=== PATIENT | male | born 1940 | race Caucasian/White ===

== ENCOUNTER 2022-04-13 14:15 | Outpatient (RCR) | payer MEDICARE, SELFPAY | END 2022-08-01 14:39 | disposition home or self-care (01) | LOC: HO.WCC 14:15 | PROVIDERS: PCP Internal Medicine; Visit Provider Surgery | DX: E11.621 Type 2 diabetes mellitus with foot ulcer (principal); L97.521 Non-pressure chronic ulcer of other part of left foot limited to breakdown of skin; L97.412 Non-pressure chronic ulcer of right heel and midfoot with fat layer exposed; I70.234 Atherosclerosis of native arteries of right leg with ulceration of heel and midfoot; I70.245 Atherosclerosis of native arteries of left leg with ulceration of other part of foot; E11.40 Type 2 diabetes mellitus with diabetic neuropathy, unspecified; I25.2 Old myocardial infarction; J44.9 Chronic obstructive pulmonary disease, unspecified; Z87.891 Personal history of nicotine dependence | CPT/HCPCS: 11042; 99212; 99213; 99214; 99215 ==

== ENCOUNTER 2022-07-29 10:29 | Emergency (ER) | payer MEDICARE, SELFPAY ==
[2022-07-29] VITALS (12 sets, daily range): BP systolic 107–176; BP diastolic 53–94; PULSE 72–92; RESP 14–24; TEMP 36.1–36.8; O2SAT 97–100; BMI 19.1
--- NOTE | ~2022-07-29 | XR_ITS ---
EXAMINATION: XR WRIST, RIGHT XR HAND, RIGHT CLINICAL INFORMATION: Right hand and wrist pain. COMPARISON: None available. TECHNIQUE: PA, lateral, and oblique views of the right wrist and PA, lateral, and oblique views of the right hand FINDINGS: Flexion of the digits limits evaluation of the phalanges without overt acute abnormality. There is an acute, mild to moderately displaced fracture of the distal radius involving the metaphysis and extending distally to the radiocarpal joint space. There is approximate 1.5 cm medial displacement of the proximal fragment. Minimally displaced and attenuated fractures of the distal ulnar metaphysis and ulnar styloid are seen as well. The carpal bones are normally aligned. The soft tissues show mild to moderate swelling. Moderate to severe atherosclerosis. XR/XR hand wrist RT IMPRESSION: 1. Acute, mild to moderately displaced distal radial fracture. 2. Minimally displaced distal ulnar and ulnar styloid fractures. 3. Mild to moderate soft tissue swelling.
--- NOTE | ~2022-07-29 | XR_ITS ---
EXAMINATION: XR WRIST, RIGHT CLINICAL INFORMATION: Right wrist status post reduction. COMPARISON: None available. TECHNIQUE: PA, lateral, and oblique views of the right wrist. XR/XR wrist RT 2V FINDINGS/IMPRESSION: An overlying cast obscures osseous detail. Interval improvement in alignment of distal radial and ulnar fractures. Distal radial fracture displacement now measures approximately 0.7 cm (previously 1.5 cm).
--- NOTE | ~2022-07-29 | XR_ITS ---
EXAMINATION: XR FOREARM, RIGHT CLINICAL INFORMATION: Right forearm pain. COMPARISON: None available. TECHNIQUE: AP and lateral views of the right forearm were obtained. FINDINGS: There is an acute, mild to moderately displaced fracture of the distal radius involving the metaphysis and extending distally to the radiocarpal joint space. There is approximate 1.5 cm medial displacement of the proximal fragment. Minimally displaced and attenuated fractures of the distal ulnar metaphysis and ulnar styloid are seen as well. The proximal radius and ulna are intact. The carpal bones are normally aligned. The soft tissues show mild to moderate swelling. Moderate to severe atherosclerosis. XR/XR forearm RT 2V IMPRESSION: 1. Acute, mild to moderately displaced distal radial fracture. 2. Minimally displaced distal ulnar and ulnar styloid fractures. 3. Mild to moderate soft tissue swelling.
--- NOTE | 2022-07-29 10:36 | ED_ITS ---
HPI - General Adult General Chief complaint: Fall Stated complaint: R WRIST INJURY W/ DEFORMITY Time Seen by Provider: 07/29/22 10:41 Source: patient and EMS Mode of arrival: EMS Limitations: no limitations History of Present Illness HPI narrative: This is an 82-year-old male presenting to the emergency department with complaints of right wrist pain status post mechanical fall and fall onto outstretched hand just prior to arrival. Patient reports he went to grab his refrigerator handle, missed the handle, lost balance fell back catching himself on his right wrist. Patient right-hand dominant. Reports 6/10 pain worse with movement and weight-bearing better at rest. Denies numbness and tingling. When he fell he did not hit is head or lose consciousness. Denies any injuries to chest, abdomen and pelvis. Patient denies preceding symptoms to fall. Currently denies chest pain, shortness of breath, headache, vision changes, dizziness, weakness, nausea, vomiting, abdominal pain. not on blood thinners. GCS is 15. Related Data Home Medications Medication Instructions Recorded Confirmed acetaminophen 325 mg tablet 325 mg PO TID 07/29/22 07/29/22 amoxicillin 875 mg-potassium 1 tab PO Q12H 07/29/22 07/29/22 clavulanate 125 mg tablet aspirin 81 mg tablet,delayed 81 mg PO DAILY 07/29/22 07/29/22 release atorvastatin 80 mg tablet 80 mg PO QPM 07/29/22 07/29/22 bisoprolol fumarate 5 mg tablet 5 mg PO DAILY 07/29/22 07/29/22 famotidine 20 mg tablet 20 mg PO BID 07/29/22 07/29/22 fluticasone 500 mcg-salmeterol 50 1 inh inhalation BID 07/29/22 07/29/22 mcg/dose blistr powdr for inhalation (Wixela Inhub) gabapentin 100 mg capsule 100 mg PO TID 07/29/22 07/29/22 insulin aspart U-100 100 unit/mL 1 sliding scale dose subcut TID 07/29/22 07/29/22 (3 mL) subcutaneous pen (Novolog PRN Hypoglycemia FlexPen U-100 Insulin aspart) insulin glargine 100 unit/mL (3 12 unit subcut DAILY 07/29/22 07/29/22 mL) subcutaneous pen (Lantus Solostar U-100 Insulin) lactulose 10 gram/15 mL oral 15 ml PO DAILY PRN constipation 07/29/22 07/29/22 solution multivitamin 1 tab PO DAILY 07/29/22 07/29/22 oxycodone 10 mg tablet 10 mg PO DAILY PRN Pain 07/29/22 07/29/22 sucralfate 1 gram tablet 1 g PO QID 07/29/22 07/29/22 tamsulosin 0.4 mg capsule 0.4 mg PO DAILY 07/29/22 07/29/22 tiotropium bromide 2.5 2 puff inhalation DAILY 07/29/22 07/29/22 mcg/actuation mist for inhalation Allergies Allergy/AdvReac Type Severity Reaction Status Date / Time No Known Allergies Allergy Unverified 11/06/19 18:00 [No Known Allergies*] Review of Systems Review of Systems: Constitutional : No Weight loss, No Fever, No Chills, No Fatigue, No Malaise ENT/Mouth : No sore throat, No Rhinorrhea Eyes: No Eye Pain, No Swelling, No Redness Cardiovascular : No Chest Pain, No SOB, No Dyspnea on Exertion, No Orthopnea, No Edema, No Palpitations Respiratory : No Cough, No Sputum, No Wheezing Gastrointestinal : No Nausea, No Vomiting, No Diarrhea, No Constipation, No a bdominal Pain, No Hematochezia, No Melena Genitourinary : No Dysuria, No Urinary Frequency, No Hematuria, Musculoskeletal : + joint pain, No Myalgias, + Joint Swelling Skin : No Skin Lesions, No rash Neuro : No Weakness, No Numbness, No Dizziness, No Headache Psych : No Anxiety/Panic, No Depression All other systems reviewed and are negative Yes all other systems are reviewed and are negative [facility] Past Medical History Attestation statement: The following information was validated with the patient. Source: old records reviewed and nursing notes reviewed Social History Social History Smoked in Last 30 Days: No Use of substances other than those prescribed or required for medical reasons: No Advance Directives: No Advance Directives Information Provided: Yes Physical Exam ED Vital Signs: Vital Signs - 24 hr 07/30/22 09:08 07/30/22 12:00 07/30/22 14:00 Temperature 98.8 F 98.3 F 98.1 F Pulse Rate 82 79 76 Respiratory Rate 18 18 18 Blood Pressure 148/69 H 132/60 133/64 Pulse Oximetry 97 98 94 Oxygen Delivery Method Room Air Room Air Room Air 07/30/22 19:38 07/31/22 05:10 Temperature 97.8 F 97.1 F Pulse Rate 84 88 Respiratory Rate 15 17 Blood Pressure 160/69 H 138/61 Pulse Oximetry 94 95 Oxygen Delivery Method Room Air Room Air BMI result Body Mass Index 19.1 vss Appearance: Alert.? Oriented X3.? No acute distress.? Head: Normocephalic, atraumatic, no step-offs or deformities Eyes: Pupils equal, round and reactive to light.? Neck: Normal inspection.? Neck supple.? CVS: Normal heart rate and rhythm.? Pulses normal.? Respiratory: No respiratory distress.? Breath sounds normal.? Abdomen: Soft and nontender.? Skin: Skin warm and dry.? Normal skin color.? Normal skin turgor.? Extremities: No lower extremity edema.? No calf ttp. Will weakness + 2+ radial pulses equal and b/l, no wrist drop b/l, cap refil < 2 seconds. Normal hand telephone sterilizer can wiggle all fingers b/l + deformityy to r wrist w/ dorsal angulation and abrasion Neuro: Oriented X 3.? No motor deficit.? No sensory deficit. CN 2-12 intact Course Course Course Narrative: 07/31/2022 0905: Physician observation continues. Patient awaiting PT evaluation. Case management to continue to follow the case. Reevaluation(s) Reevaluation #1: Of the do spray showing acute [id number] displaced distal radial fracture. Minimally displaced distal ulnar an ulnar styloid fracture. [id number] soft tissue swelling also noted. This case was discussed extensively with the orthopedic team, I did make him aware that I was concerned for an open fracture, I gave a dose of Zosyn here, cyst orthopedics recommends outpatient follow-up with p.o. antibiotics, no need for inpatient admission. At this time will proceed with conscious sedation for reduction of right wrist, I do not think patient would tolerate hematoma block as he is in a lot of pain to entire right upper extremity. I did obtain verbal and written consent which was placed in the chart, patient is right-hand dominant and unable to sign so he gave us verbal consent, Nurse Glory Rosales at bedside as a witness. Time: 12:48 Reevaluation #2: Reduction successfully done with propofol 75 mg. Patient tolerated procedure well. Splint place, sugar-tong, patient did sustain a few skin tears during the reduction, iodine, Xeroform applied to the area. Nonadhesive applied. After application of splint neurovascular status intact. Postop imaging pending. Time: 13:29 Reevaluation #3: Shared postop films with Orthopedic SURESH Girard, recommends outpatient follow-up, improvment from intial films. With p.o. antibiotics due to open fracture. Neurovascular status remains unchanged and intact. Patient tolerated procedure well requesting something for pain final will be given. This patient would benefit from physical therapy and case management. At this time patient to be placed in observation to allow more time to be evaluated by physical therapy and case management. Did start him on oral Keflex p.o. q.i.d. and patient to be discharged home with oral antibiotics. Time: 14:14 Additional Reevaluation(s): Physician observation to be continued. Pending disposition, evaluation by case management final plan, patient did require pain medicine earlier today he does have oxycodone scheduled every 6 hours as needed for pain, required Tylenol as well. No other complaints vital signs stable patient eating and drinking well. Nontoxic appearing Medications Administered Generic Name Dose Route Start Last Admin Trade Name Freq PRN Reason Stop Dose Admin Acetaminophen 975 mg 07/30/22 16:19 07/30/22 16:52 Acetaminophen 325 Mg Tablet PO 975 mg Q6H PRN Administration Pain, Severe (Pain Scale 7-10) Amoxicillin/Clavulanate Potassium 875 mg 07/30/22 11:45 07/31/22 08:23 Amoxicillin/Potassium Clav 875 Mg Tablet PO 875 mg BID AMBREEN Administration Aspirin 81 mg 07/31/22 09:00 07/31/22 08:23 Aspirin Enteric Coated 81 Mg Tablet. PO 81 mg DAILY AMBREEN Administration Atorvastatin Calcium 80 mg 07/30/22 21:00 07/30/22 21:07 Atorvastatin Calcium 80 Mg Tablet PO 80 mg BEDTIME AMBREEN Administration Bisoprolol Fumarate 5 mg 07/31/22 09:00 07/31/22 08:23 Bisoprolol Fumarate 5 Mg Tablet PO 5 mg DAILY AMBREEN Administration Cephalexin HCl 500 mg 07/29/22 15:00 07/31/22 08:23 Cephalexin 500 Mg Capsule PO 500 mg Q6H AMBREEN Administration Famotidine 20 mg 07/30/22 21:00 07/31/22 08:23 Famotidine 20 Mg Tablet PO 20 mg BID AMBREEN Administration Gabapentin 100 mg 07/30/22 15:00 07/31/22 08:23 Gabapentin 100 Mg Capsule PO 100 mg TID [facility] Administration Insulin Glargine 12 unit 07/31/22 09:00 07/31/22 08:24 Insulin Glargine,Hum.Rec.Anlog 100 Unit/Ml 10 Ml Vial SUBCUT 12 unit DAILY [facility] Administration Insulin Human Lispro 0 unit 07/30/22 12:00 07/31/22 08:23 Insulin Lispro 100 Unit/Ml 3 Ml Vial SUBCUT 2 unit QIDACHS [facility] Administration Protocol Multivitamins/Vitamin C 1 tab 07/31/22 09:00 07/31/22 08:23 Multivitamin Tablet PO 1 tab DAILY [facility] Administration Oxycodone HCl 5 mg 07/29/22 17:12 07/31/22 08:38 Oxycodone Hcl Immed Release 5 Mg Tablet PO 5 mg Q6H PRN Administration Pain, Moderate(Pain Scale 4-6) Sucralfate 1 gm 07/30/22 13:00 07/31/22 08:23 Sucralfate 1 Gm Tablet PO 1 gm QID [facility] Administration Tamsulosin HCl 0.4 mg 07/31/22 09:00 07/31/22 08:23 Tamsulosin Hcl 0.4 Mg Capsule PO 0.4 mg DAILY [facility] Administration Discontinued Medications Generic Name Dose Route Start Last Admin Trade Name Freq PRN Reason Stop Dose Admin Acetaminophen 975 mg 07/29/22 18:32 07/29/22 18:40 Acetaminophen 325 Mg Tablet PO 07/29/22 18:33 975 mg ONCE ONE Administration Acetaminophen 975 mg 07/30/22 10:16 07/30/22 10:33 Acetaminophen 325 Mg Tablet PO 07/30/22 10:17 975 mg ONCE ONE Administration Fentanyl 50 mcg 07/29/22 11:20 07/29/22 12:03 Fentanyl Citrate/Pf 100 Mcg/2 Ml Vial IVPUSH 07/29/22 11:21 50 mcg ONCE ONE Administration Protocol Fentanyl 50 mcg 07/29/22 14:12 07/29/22 14:44 Fentanyl Citrate/Pf 100 Mcg/2 Ml Vial IVPUSH 07/29/22 14:13 50 mcg ONCE ONE Administration Protocol Ceftriaxone Sodium 1 gm/ 50 mls @ 100 mls/hr 07/29/22 11:53 07/29/22 13:32 Sodium Chloride IV 07/29/22 12:22 Infused ONCE ONE Infusion Lidocaine HCl 5 ml 07/29/22 11:37 07/29/22 12:39 Lidocaine Hcl 2 % Mpf 5 Ml Vial SUBCUT 07/29/22 11:38 Not Given ONCE ONE Oxycodone HCl 5 mg 07/29/22 18:32 07/29/22 18:39 Oxycodone Hcl Immed Release 5 Mg Tablet PO 07/29/22 18:33 5 mg ONCE ONE Administration Propofol 100 mg 07/29/22 12:33 07/29/22 13:15 Propofol 200 Mg/20 Ml Vial IVPUSH 07/29/22 12:34 100 mg ONCE ONE Administration Medical Decision Making Medical Decision Making [facility] Narrative: 1039 82-year-old male presents with right wrist pain status post FOOSH this prior to arrival. No head strike or loss of consciousness. Not anticoagulated. Physical exam significant for No lower extremity edema.? No calf ttp. 5/5 strength to bilateral upper and lower extremities + 2+ radial pulses equal and b/l, no wrist drop b/l, cap refil < 2 seconds. Normal hand telephone sterilizer can wiggle all fingers b/l + deformityy to r wrist w/ dorsal angulation Concerns for open fracture, dislocation a possible ligament and tendon injury. No signs of neurovascular compromise or threatened limb. No head strike or trauma to chest, abdomen or pelvis. Unlikely stroke, posterior stroke, traumatic injury to chest, abdomen or pelvis. Plan imaging, patient was given fentanyl by EMS prior to arrival Differential Diagnosis Differential Diagnoses: The differential diagnosis associated with the presen tation includes Concerns for fracture, dislocation a possible ligament and tendon injury. No signs of neurovascular compromise or threatened limb. No head strike or trauma to chest, abdomen or pelvis. Unlikely stroke, posterior stroke, traumatic injury to chest, abdomen or pelvis. Admission/Observation Consideration of admission/observation: Escalation of care including admission/observation considered Unlikely Lab Data 07/29/22 15:25 07/29/22 15:25 Labs: Lab Results 07/29/22 07/29/22 07/29/22 Range/Units 15:25 15:25 18:48 WBC 11.0 H (4.8-10.8) X10*3/uL RBC 3.70 L (4.60-5.80) X10*6/uL Hgb 10.4 L (14.0-18.0) g/dl Hct 31.5 L (42.0-52.0) % MCV 85.1 (80.0-98.0) fL MCH 28.1 (27.0-33.0) pg MCHC 33.0 (31.0-36.0) g/dl RDW 15.3 (11.0-16.0) % Plt Count 397 (160-400) X10*3/uL MPV 7.7 L (9.4-12.4) fL Immature Gran % (Auto) 0.5 H (0.0-0.4) % Neut % (Auto) 72.4 (45-73) % Lymph % (Auto) 14.2 L (20-40) % [place] % (Auto) 9.3 (2-11) % Eos % (Auto) 2.6 (0-4) % Baso % (Auto) 1.0 (0-2) % Lymph # (Auto) 1.6 (1.2-4.9) X10*3/uL [place] # (Auto) 1.0 (0.1-1.2) X10*3/uL Eos # (Auto) 0.3 (0.0-0.4) X10*3/uL Baso # (Auto) 0.1 (0.0-0.2) X10*3/uL Abs Immat Gran (auto) 0.05 H (0.00-0.03) X10*3/uL Absolute Neuts (auto) 8.0 (2.0-8.3) x10*3/uL Absolute Nucleated RBC 0.000 (0.0-0.012) X10*3/uL Nucleated RBC % (auto) 0.0 (0.0-0.2) /100WBC Sodium 130 L (135-145) mmol/L Potassium 4.4 (3.3-5.1) mmol/L Chloride 93 L (96-108) mmol/L Carbon Dioxide 29 (22-29) mmol/L Anion Gap 12 (12-20) BUN 16 (9-16) mg/dL Creatinine 0.66 (0.5-1.4) mg/dL Estim Creat Clear Calc 65.7 Estimated GFR > 60 POC Glucose 61 (60-115) mg/dL Random Glucose 80 (60-115) mg/dL Calcium 9.3 (8.4-10.2) mg/dL Total Bilirubin 0.3 (0.0-1.0) mg/dL AST 26 (5-37) U/L ALT 21 (0-40) U/L Alkaline Phosphatase 131 H (39-117) U/L Total Protein 5.9 L (6.5-8.0) g/dL Albumin 3.5 (3.5-5.0) g/dL 07/29/22 07/29/22 07/29/22 Range/Units 19:11 19:36 21:30 WBC (4.8-10.8) X10*3/uL RBC (4.60-5.80) X10*6/uL Hgb (14.0-18.0) g/dl Hct (42.0-52.0) % MCV (80.0-98.0) fL MCH (27.0-33.0) pg MCHC (31.0-36.0) g/dl RDW (11.0-16.0) % Plt Count (160-400) X10*3/uL MPV (9.4-12.4) fL Immature Gran % (Auto) (0.0-0.4) % Neut % (Auto) (45-73) % Lymph % (Auto) (20-40) % [place] % (Auto) (2-11) % Eos % (Auto) (0-4) % Baso % (Auto) (0-2) % Lymph # (Auto) (1.2-4.9) X10*3/uL [place] # (Auto) (0.1-1.2) X10*3/uL Eos # (Auto) (0.0-0.4) X10*3/uL Baso # (Auto) (0.0-0.2) X10*3/uL Abs Immat Gran (auto) (0.00-0.03) X10*3/uL Absolute Neuts (auto) (2.0-8.3) x10*3/uL Absolute Nucleated RBC (0.0-0.012) X10*3/uL Nucleated RBC % (auto) (0.0-0.2) /100WBC Sodium (135-145) mmol/L Potassium (3.3-5.1) mmol/L Chloride (96-108) mmol/L Carbon Dioxide (22-29) mmol/L Anion Gap (12-20) BUN (9-16) mg/dL Creatinine (0.5-1.4) mg/dL Estim Creat Clear Calc Estimated GFR POC Glucose 59 L* 87 199 H (60-115) mg/dL Random Glucose (60-115) mg/dL Calcium (8.4-10.2) mg/dL Total Bilirubin (0.0-1.0) mg/dL AST (5-37) U/L ALT (0-40) U/L Alkaline Phosphatase (39-117) U/L Total Protein (6.5-8.0) g/dL Albumin (3.5-5.0) g/dL 07/30/22 07/30/22 07/30/22 Range/Units 07:26 11:40 16:33 WBC (4.8-10.8) X10*3/uL RBC (4.60-5.80) X10*6/uL Hgb (14.0-18.0) g/dl Hct (42.0-52.0) % MCV (80.0-98.0) fL MCH (27.0-33.0) pg MCHC (31.0-36.0) g/dl RDW (11.0-16.0) % Plt Count (160-400) X10*3/uL MPV (9.4-12.4) fL Immature Gran % (Auto) (0.0-0.4) % Neut % (Auto) (45-73) % Lymph % (Auto) (20-40) % [place] % (Auto) (2-11) % Eos % (Auto) (0-4) % Baso % (Auto) (0-2) % Lymph # (Auto) (1.2-4.9) X10*3/uL [place] # (Auto) (0.1-1.2) X10*3/uL Eos # (Auto) (0.0-0.4) X10*3/uL Baso # (Auto) (0.0-0.2) X10*3/uL Abs Immat Gran (auto) (0.00-0.03) X10*3/uL Absolute Neuts (auto) (2.0-8.3) x10*3/uL Absolute Nucleated RBC (0.0-0.012) X10*3/uL Nucleated RBC % (auto) (0.0-0.2) /100WBC Sodium (135-145) mmol/L Potassium (3.3-5.1) mmol/L Chloride (96-108) mmol/L Carbon Dioxide (22-29) mmol/L Anion Gap (12-20) BUN (9-16) mg/dL Creatinine (0.5-1.4) mg/dL Estim Creat Clear Calc Estimated GFR POC Glucose 170 H 194 H 118 H (60-115) mg/dL Random Glucose (60-115) mg/dL Calcium (8.4-10.2) mg/dL Total Bilirubin (0.0-1.0) mg/dL AST (5-37) U/L ALT (0-40) U/L Alkaline Phosphatase (39-117) U/L Total Protein (6.5-8.0) g/dL Albumin (3.5-5.0) g/dL 07/30/22 07/31/22 Range/Units 20:49 07:55 WBC (4.8-10.8) X10*3/uL RBC (4.60-5.80) X10*6/uL Hgb (14.0-18.0) g/dl Hct (42.0-52.0) % MCV (80.0-98.0) fL MCH (27.0-33.0) pg MCHC (31.0-36.0) g/dl RDW (11.0-16.0) % Plt Count (160-400) X10*3/uL MPV (9.4-12.4) fL Immature Gran % (Auto) (0.0-0.4) % Neut % (Auto) (45-73) % Lymph % (Auto) (20-40) % [place] % (Auto) (2-11) % Eos % (Auto) (0-4) % Baso % (Auto) (0-2) % Lymph # (Auto) (1.2-4.9) X10*3/uL [place] # (Auto) (0.1-1.2) X10*3/uL Eos # (Auto) (0.0-0.4) X10*3/uL Baso # (Auto) (0.0-0.2) X10*3/uL Abs Immat Gran (auto) (0.00-0.03) X10*3/uL Absolute Neuts (auto) (2.0-8.3) x10*3/uL Absolute Nucleated RBC (0.0-0.012) X10*3/uL Nucleated RBC % (auto) (0.0-0.2) /100WBC Sodium (135-145) mmol/L Potassium (3.3-5.1) mmol/L Chloride (96-108) mmol/L Carbon Dioxide (22-29) mmol/L Anion Gap (12-20) BUN (9-16) mg/dL Creatinine (0.5-1.4) mg/dL Estim Creat Clear Calc Estimated GFR POC Glucose 171 H 164 H (60-115) mg/dL Random Glucose (60-115) mg/dL Calcium (8.4-10.2) mg/dL Total Bilirubin (0.0-1.0) mg/dL AST (5-37) U/L ALT (0-40) U/L Alkaline Phosphatase (39-117) U/L Total Protein (6.5-8.0) g/dL Albumin (3.5-5.0) g/dL Independent Interpretation I performed an independent interpretation of an: Plain X-Ray Radiology Impression Discussion of test interpretation with radiology: I have reviewed the radiologist's reading. Core Measures AMI core measures followed: Yes Measure exclusions: not indicated Critical Care Time Critical Care Time Critical Care Time: Yes Total Critical Care Time: 35 Attestation: I attest to this time spent taking care of the patient, obtaining history, physical, reviewing labs, imaging, speaking to my attending, speaking to specialist. Discharge Plan Discharge Clinical Impression: Fall, Distal radial fracture, Ulnar fracture, Physical deconditioning Patient Disposition: Still a Patient Additional Instructions: Please discharged on oral antibiotics. Take your medications as prescribed. If you were prescribed antibiotics today, it is important that you take your medication to their entirety, do not skip any doses, do not finish them early. Follow-up with your primary care provider this week. Return to the emergency department with new or worsening symptoms. Such as fevers, chills, chest pain, shortness of breath, nausea, vomiting, dizziness, headache, vision changes, lethargy In case of emergency call 911 Prescriptions: No Action atorvastatin 80 mg tablet 80 mg PO QPM sucralfate 1 gram tablet 1 g PO QID bisoprolol fumarate 5 mg tablet 5 mg PO DAILY famotidine 20 mg tablet 20 mg PO BID tamsulosin 0.4 mg capsule 0.4 mg PO DAILY fluticasone propion-salmeterol [Wixela Inhub] 500-50 mcg/dose Blister With Device 1 inh INHALATION BID gabapentin 100 mg capsule 100 mg PO TID amoxicillin-pot clavulanate 875-125 mg tablet 1 tab PO Q12H lactulose 10 gram/15 mL solution 15 ml PO DAILY PRN (Reason: constipation) oxycodone 10 mg tablet 10 mg PO DAILY PRN (Reason: Pain) multivitamin Tablet 1 tab PO DAILY acetaminophen 325 mg Tablet 325 mg PO TID aspirin 81 mg Tablet,Delayed Release (Dr/Ec) 81 mg PO DAILY insulin aspart U-100 [Novolog FlexPen U-100 Insulin] 100 unit/mL (3 mL) Insulin Pen 1 sliding scale dose SUBCUT TID PRN (Reason: Hypoglycemia) insulin glargine [Lantus Solostar U-100 Insulin] 100 unit/mL (3 mL) Insulin Pen 12 unit SUBCUT DAILY tiotropium bromide 2.5 mcg/actuation Mist 2 puff INHALATION DAILY [place]: [facility] [place] [facility] [place]Provider Group] - 2 days Physician,Unknown J [Primary Care Provider] - 2 days
--- OUTSIDE RECORDS SUMMARY | 2022-07-29 10:52 | XMS_ITS | Continuity of Care Document ---
Author Name Unknown Organization [facility] ter Address [address] [place] [id number] Care Team Providers Care Content Engineer Name Role Phone Rina WEBBER, Juanjose Em Primary Care Physician Encounter [facility] Date(s): 05/15/22 - 05/23/[address] [address] Discharge Disposition: A-D/C Home Allergies, Adverse Reactions, Alerts No Known Allergies Immunizations Given and Recorded Vaccine Date Status Refusal Reason SARS-CoV-2 (COVID-19) mRNA-1273 vaccine 12/20/20 R ecorded SARS-CoV-2 (COVID-19) mRNA-1273 vaccine 05/11/20 R ecorded SARS-CoV-2 (COVID-19) mRNA-1273 vaccine 04/13/20 R ecorded pneumococcal 13-valent vaccine 05/25/15 Recorded Zoster Vaccine Live 07/16/12 Recorded influenza virus vaccine, inactivated 03/12/12 Zach rded Pneumococcal Vaccine (oldterm) 02/19/10 Recorded tetanus/diphtheria/pertussis, acel(Tdap) 10/28/09 Recorded Medications albuterol 90 mcg/inh inhalation powder 2 puffs, Inhalation, Every 4 hours, PRN as needed, # 1 each, 0 Refills, Maintenance, 09/17/15 13:00:20, Powder Start Date: 09/17/15 Status: Ordered aspirin 81 mg oral tablet 1 tablet = 81 mg, By Mouth, Daily, # 30 tablet, 0 Refills, Maintenance, 09/17/15 13:02:15, Tablet Start Date: 09/17/15 Status: Ordered atorvastatin 80 mg oral tablet 1 tablet = 80 mg, By Mouth, Daily at supper, # 90 tablet, 3 Refills, Maintenance, Route to PharmacyElectronically, [id number], [facility]/pharmacy #[id number] Start Date: 06/25/18 Stop Date: 06/20/19 Status: Ordered bisoprolol 5 mg oral tablet 1 tablet = 5 mg, By Mouth, Daily, # 30 tablet, 5 Refills, Maintenance, 12/14/15 15:49:33, Tablet Start Date: 12/14/15 Status: Ordered Centrum Silver Men's 1 tablet, By Mouth, Daily, 0 Refills, Maintenance, 09/17/15 13:03:26 Start Date: 09/17/15 Status: Ordered famotidine 20 mg oral tablet 20 mg, 1, tablet, By Mouth, 2 times a day, # 60 tablet, Refills 0, Maintenance, 09/17/15 12:58:56 Start Date: 09/17/15 Status: Ordered Flomax 0.4 mg oral capsule 0.4 mg, 1, capsule, By Mouth, Daily, Refills 0, Maintenance, 05/23/22 14:13:00 EDT, Partial fill upon patient request if the prescription is for a schedule II opioid drug. Start Date: 05/23/22 Status: Ordered lactulose 10 gm/15 ml oral syrup 15 mL = 10 Gm, By Mouth, Daily, PRN as needed for constipation, # 450 mL, 3 Refills, Maintenance, 11/29/15 9:46:32, Syrup, 15 mL By Mouth Daily,x30 days,PRN:as needed for constipation Start Date: 11/29/15 Stop Date: 03/28/16 Status: Ordered Lantus Solostar Pen 100 units/mL subcutaneous solution = 14 units, Subcutaneous Infusion, 12 units, 0 Refills, Maintenance, 09/17/15 13:01:02 EDT Start Date: 09/17/15 Status: Ordered levalbuterol 1.25 mg/0.5 mL inhalation solution 0.5 mL = 1.25 mg, Neb, 3 times a day, PRN for wheezing, # 30 each, 0 Refills, Maintenance, 10/25/1615:38:35, Solution Start Date: 10/25/15 Status: Ordered MiraLax = 17 Gm, By Mouth, Daily, 0 Refills, Maintenance, 05/12/22 9:22:00 EDT, Partial fill upon patient request if the prescription is for a schedule II opioid drug. Start Date: 05/12/22 Status: Ordered NovoLOG FlexPen 100 units/mL subcutaneous solution Subcutaneous Infusion, 3 times a day before meals, 0 Refills, Maintenance, 09/17/15 13:00:45 Start Date: 09/17/15 Status: Ordered oxyCODONE 10 mg oral tablet 2 tablet = 20 mg, By Mouth, Every 6 hours, PRN as needed for pain, 0 Refills, Maintenance, 09/16/1612:01:38, Tablet Start Date: 09/17/15 Status: Ordered Spiriva HandiHaler 18 mcg Inhalation Capsule 1 capsule = 18 mcg, Inhalation, Daily, 0 Refills, Maintenance, 09/17/15 12:59:21, Capsule Start Date: 09/17/15 Status: Ordered Symbicort 160mcg/4.5mcg Inhaler 2, puffs, Inhalation, 2 times a day, # 10.2 Gm, Refills 0, Maintenance, 09/17/15 12:59:43, Aerosol Start Date: 09/17/15 Status: Ordered Tylenol 325 mg oral tablet 650 mg, 2, tablet, By Mouth, Every 6 hours, Refills 0, Maintenance, 05/23/22 14:13:00 EDT, Partial fill upon patient request if the prescription is for a schedule II opioid drug. Start Date: 05/23/22 Status: Ordered Tylenol 325 mg oral tablet 650 mg, Tablet, By Mouth, 05/23/22 15:00:00 EDT Start Date: 05/23/22 Stop Date: 05/23/22 Status: Completed Problem List Condition Confirmation Course Effective Dates Status H ealth Status Informant CAD in [place] artery Confirmed Active Diabetes Confirmed Active Essential hypertension Confirmed Active Hyperlipidemia Confirmed Active Chronic pain of left knee Confirmed Active COPD, moderate Confirmed Active Procedures Procedure Date Related Diagnosis Body Site Status Debridement Procedure, Bypas s Femoral Popliteal with Graft, Lower, Left 05/15/22 Completed Results Orders for Microbiology Reports Name Date Blood Culture 05/19/22 Blood Culture #2 05/19/22 Microbiology Reports TEST:Blood Culture STATUS:Unauthenticated BODY SITE: SOURCE:Blood COLLECTED DATE/TIME:05/19/22 5:11 AM Blood Culture SPECIMEN DESCRIPTION : BLOOD LH SPECIAL REQUESTS : NONE CULTURE : NO GROWTH 4 DAYS REPORT STATUS : PRELIMINARY REPORT TEST:Blood Culture, Second Order STATUS:Unauthenticated BODY SITE: SOURCE:Blood COLLECTED DATE/TIME:05/19/22 5:11 AM Blood Culture, Second Order SPECIMEN DESCRIPTION : BLOOD RA SPECIAL REQUESTS : NONE CULTURE : NO GROWTH 4 DAYS REPORT STATUS : PRELIMINARY REPORT Radiology Reports * Exam Date Time Procedure Performing Provider Status 05/21/22 8:04 AM Abdomen AP Ze Génesis; Auth (Ve rified) Notes: (Abdomen AP) Reason For Exam: Distention RESULT: XR Abdomen AP XR Abdomen AP INDICATION/CLINICAL QUESTION: Distention; COMPARISON: 10/15/2013. FINDINGS: Frontal view of the abdomen and pelvis, 2 radiographs labeled supine, 739 and 7:40 AM. Colon appears moderately stool-filled. Otherwise largely nonspecific bowel gas pattern. Included lung bases are clear. There is moderate to advanced degenerative osseous changes and atherosclerotic arterial changes. Surgical pelvic calcifications appear unchanged likely phleboliths. IMPRESSION: Patient appears constipated. WSN: [id number] Ordering Physician: Lyndsey Mei Dictated By: Jose Mercer MD Dictated Date/Time: 05/21/22 8:57 am Reviewed By: Jose Mercer MD Signed By: Jose Mercer MD Signed Date/Time: 05/21/22 8:57 am Transcribed By: GUY Transcribed Date/Time: 05/21/22 8:56 am * Exam Date Time Procedure Performing Provider Status 05/19/22 6:08 AM Chest Portable Alyse Schaffer; Auth (Verified) Notes: (Chest Portable) Reason For Exam: Shortness of Breath RESULT: Chest Portable Chest Portable Reason: Shortness of Breath; Clinical Question(s): Pulmonary Edema COMPARISON: 10/25/2015. FINDINGS: Single AP upright chest x-ray 5:37 AM. LINES AND TUBES: None. LUNGS AND PLEURA: Questionable trace left apical pneumothorax. Otherwise lungs are hyperexpanded and clear. HEART, MEDIASTINUM AND LASHELL: Heart is normal in size. Normal mediastinal and hilar contour. BONES AND SOFT TISSUES: No acute abnormality. Fairly extensive atherosclerotic carotid arterial calcifications. IMPRESSION: Questionable tiny left apical pneumothorax may be artifact. Clinical correlation recommended. COPD changes, otherwise no evidence of an acute process. A critical result message ([place]) has been communicated via the [facility] on 05/19/2022 8:03 AM, Message ID [id number]. WSN: [id number] Ordering Physician: Logan Weeks Dictated By: Jose Mercer MD Dictated Date/Time: 05/19/22 8:03 am Reviewed By: Jose Mercer MD Signed By: Jose Mercer MD Signed Date/Time: 05/19/22 8:03 am Transcribed By: GUY Transcribed Date/Time: 05/19/22 8:00 am Vital Signs Most recent to oldest [Reference Range]: 1 2 3 Height 165 cm (05/23/22 7:53 AM) 165 cm (05/23/22 5:22 AM) 165 cm (05/22/22 9:44 PM) Weight 62.4 kg (05/23/22 4:10 AM) 63.2 kg (05/22/22 4:00 AM) 62.1 kg (05/21/22 5:51 AM) Oxygen Saturation [94-100 %] 97 % (05/23/22 3:00 PM) 98 % (05/23/22 11:00 AM) 98 % (05/23/22 7:53 AM) Pulse Rate [55-90 bpm] 99 bpm *H* (05/23/22 3:00 PM) 90 bpm (05/23/22 11:00 AM) 86 bpm (05/23/22 7:53 AM) Body Mass Index [18.5-24.99 kg/m2] 20.2 kg/m2 (05/15/22 9:08 AM) 20.2 kg/m2 (05/12/22 9:30 AM) Blood Pressure [90-138/55-84 mm Hg] 108/49mm Hg (05/23/22 3:00 PM) 109/56mm Hg (05/23/22 11:00 AM) 112/71mm Hg (05/23/22 7:53 AM) Respiratory Rate [16-30 br/min] 18 br/min (05/23/22 3:45 PM) 20 br/min (05/23/22 3:00 PM) 20 br/min (05/23/22 11:00 AM) Temperature [96.8-100.4 DegF] 98.8 DegF (05/23/22 3:00 PM) 98.9 DegF (05/23/22 11:00 AM) 98.9 DegF (05/23/22 7:53 AM) Liters per Minute 0 L/min (05/18/22 7:38 PM) 4 L/min (05/15/22 9:30 PM) 6 L/min (05/15/22 9:15 PM) Mode of Delivery (Oxygen) Room air (05/23/22 11:00 AM) Room air (05/23/22 7:53 AM) Room air (05/23/22 5:22 AM) Blood pressure sites Arm, right (05/23/22 3:00 PM) Arm, right (05/23/22 11:00 AM) Arm, right (05/23/22 5:22 AM) Temperature Route Oral (05/23/22 3:00 PM) Oral (05/23/22 11:00 AM) Oral (05/23/22 7:53 AM) Dry Weight 55 kg (05/15/22 9:08 AM) 55 kg (05/12/22 9:30 AM) Weight Obtained Via Bed scale (05/23/22 4:10 AM) Bed scale (05/20/22 8:00 AM) Bed scale (05/19/22 3:09 AM) Dry Weight Obtained Via Standing scale (05/15/22 9:08 AM) Patient/family stated (05/12/22 9:30 AM) Social History Social History Type Response Smoking Status Former smoker; Tobac co user in household: No; Other: pt states he quit 15 yrs ago; entered on: 05/09/16 Sex History and physical note * Event Display: History and Physical Hospital Authored Date: Admission evaluation note * Vishnu DAYTIME BABYSITTER Thom: MODIFY [place] DAYTIME BABYSITTER Thom: MODIFY, MODIFY Minkin DAYTIME BABYSITTER Thom: MODIFY, MODIFY Minkin DAYTIME BABYSITTER, Thom: MODIFY, MODIFY Minkin DAYTIME BABYSITTER, Thom: MODIFY, SIGN Minkin DAYTIME BABYSITTER, Thom: SIGN, VERIFY Vishnu DAYTIME BABYSITTER Thom: VERIFY, MODIFY Vishnu DAYTIME BABYSITTER Thom: MODIFY, PERFORM Vishnu DAYTIME BABYSITTER, Thmo: PERFORM, MODIFY Event Display: Admission Note Authored Date: [id number] Patient: RAD ACOSTA Age: 81 years Sex: Male : 1940 Associated Diagnoses: None Author: Thom Mares NP History of Present Illness Rad Acosta is a 81yo male w/ PMH significant for CAD, COPD, chronic left knee pain, diabetes, HTN, and HLD who presented for a planned vascular surgery w/ Dr. Woo. He reportedly has had b/l lower extremity pain for approx 2 years with various poorly healing skin ulcerations to his bilateral feet/heels which prompted the vascular surgery workup. He had presented for an initially planned Left fem to pop bypass which resulted in a Left fem to AT bypass utilizing his left greater saphenous vein for graft also with debridement of his Left 1st toe w/ removal of left 4th toenail. During the case he remained hypotensive despite 2units of PRBC and 5.5L of IVF resuscitation and an EBL of approx 650. He was admitted to the STICU post-op still on Levophed for BP support but extubated. He was admitted for hemodynamic support. ROS General: Denies fevers or chills HEENT: Denies acute vision or hearing changes Neuro: Denies headache or confusion CV: Denies chest pain, palpitations or SOB Pulm: Denies SOB or cough GI: Denies abdominal pain, no N/V/C/D : Denies dysuria Extremities: Endorses left knee pain and left ankle pain, as well as baseline right foot pain, otherwise denies extremity pain/discomfort. ICU Notes: LOS: 1 ICU day #: 1 Postop Day #: 05/15/22 - Left fem-AT bypass utilizing Left GSV graft, also with debridement of left 1st toe and removal of toenail on L4, all with Dr. Woo. Central line site appearance: N/A Evidence of line infection or BSI?: no Central Line day #: N/A Arterial Line day #: 05/15/22 - Right radial a-line, placed under sterile conditions in OR by anesthesia All lines/tubes necessary?: yes Need for continuing restraints assessed?: N/A DVT prophylaxis: heparin 5000 tid Stress ulcer prophylaxis: continue home famotidine, otherwise not indicated. Glucose Protocol (80-150): presented to STICU on insulin infusion, continued for now. HOB elevated = or > 30 deg: yes Daily sedation wakeup: N/A Vent weaning assessed: N/A Resuscitation Status: full resuscitation Past Medical History Problem list All Problems CAD in [place] artery / SNOMED CT 70898739 / Confirmed Diabetes / SNOMED CT 103834431 / Confirmed Essential hypertension / SNOMED CT 07068867 / Confirmed Hyperlipidemia / SNOMED CT 73382776 / Confirmed Chronic pain of left knee / SNOMED CT 50418108 / Confirmed COPD, moderate / SNOMED CT 088457194 / Confirmed Current medications (Selected) Inpatient Medications Ordered Bisacodyl Supp: 10 mg, Suppository, Rectally, 2 times a day, PRN for Constipation, Routine, 05/15/22 21:43:00 EDT Colace Liquid: 100 mg, Liquid, By Mouth, 2 times a day, PRN for Constipation, Routine, 05/15/22 21:43:00 EDT Heparin Inj: 5,000 units, Injection, Subcutaneous Injection, 3 times a day, (DVT Prophylaxis), Routine, 05/16/22 6:00:00 EDT Insulin R 100 units in 100 mL Premix 100 units [2 units/hr] + NaCL 0.9% Premixed IV 100 mL: 100 mL,Infusion, IV Infusion, 100 mL, 2 mL/hr, Infuse over 50 hr, Refer to Adult ICU Insulin Guidelines., Unless duration specified Continue until D/C'd, Routine, 05/15/22 21:43:00 EDT, 55 kg LR 1,000 mL: 1,000 mL, Infusion, IV Infusion, 1,000 mL, 100 mL/hr, Infuse over 10 hr, Continue until D/C'd Unless duration specified, Routine, 05/15/22 21:44:00 EDT, 1.6, m2 Levophed 4 mg / NaCL 0.9% 250 mL 4 m mL, Initial Dose 0.1 mcg/kg/min, Infusion, IV Infusion, Titrate for Other:, goal map > 65. Suggested infusion range 0.05 - 1.6 mcg/kg/min, Routine, 05/15/22 21:44:00 EDT, Titrate, mL 250 Milk of Magnesia Liquid: 30 mL, Suspension, By Mouth, 2 times a day, PRN for Constipation, Routine,05/15/22 21:43:00 EDT NaCL 0.9% 500 mL: 500 mL, Infusion, Intra-arterial, 500 mL, 3 mL/hr, Infuse over 166.7 hr, RADIAL A-LINE, Continue until D/C'd Unless duration specified, Routine, 05/15/22 21:43:00 EDT, 1.6, m2 NaCL 0.9% Flush: 3 mL, Injection, IV Push, Every 8 hours, PRN for Other, For Maintaining IV Patencyand/or Flush between IV medications, Routine, 05/15/22 21:43:00 EDT Tylenol 325 mg oral tablet: 650 mg, Tablet, By Mouth, Every 6 hours, Routine, 05/15/22 23:00:00 EDT atorvastatin 80 mg oral tablet: 80 mg, Tablet, By Mouth, Daily at supper, Routine, 05/16/22 17:00:00 EDT famotidine 20 mg oral tablet: 20 mg, Tablet, By Mouth, 2 times a day, Routine, 05/15/22 22:34:00 EDT oxyCODONE 5 mg oral tablet: 5 mg, Tablet, By Mouth, Every 6 hours, PRN for Pain , Severe, Routine, 05/15/22 22:35:00 EDT Prescriptions Prescribed atorvastatin 80 mg oral tablet: 1 tablet = 80 mg, By Mouth, Daily at supper, # 90 tablet, 3 Refills, Maintenance, Route to Pharmacy Electronically, [id number], [facility]/pharmacy #[id number] bisoprolol 5 mg oral tablet: 1 tablet = 5 mg, By Mouth, Daily, # 30 tablet, 5 Refills, Maintenance,12/14/15 15:49:33, Tablet lactulose 10 gm/15 ml oral syrup: 15 mL = 10 Gm, By Mouth, Daily, PRN as needed for constipation, #450 mL, 3 Refills, Maintenance, 11/29/15 9:46:32, Syrup, 15 mL By Mouth Daily,x30 days,PRN:as needed for constipation Documented Medications Documented Centrum Silver Men's: 1 tablet, By Mouth, Daily, 0 Refills, Maintenance, 09/17/15 13:03:26 Lantus Solostar Pen 100 units/mL subcutaneous solution: Subcutaneous Infusion, 12 units, 0 Refills,Maintenance, 09/17/15 13:01:02 MiraLax: = 17 Gm, By Mouth, Daily, 0 Refills, Maintenance, 05/12/22 9:22:00 EDT, Partial fill upon patient request if the prescription is for a schedule II opioid drug. NovoLOG FlexPen 100 units/mL subcutaneous solution: Subcutaneous Infusion, 3 times a day before meals, 0 Refills, Maintenance, 09/17/15 13:00:45 Spiriva HandiHaler 18 mcg Inhalation Capsule: 1 capsule = 18 mcg, Inhalation, Daily, 0 Refills, Maintenance, 09/17/15 12:59:21, Capsule Symbicort 160mcg/4.5mcg Inhaler: 2, puffs, Inhalation, 2 times a day, # 10.2 Gm, Refills 0, Maintenance, 09/17/15 12:59:43, Aerosol albuterol 90 mcg/inh inhalation powder: 2 puffs, Inhalation, Every 4 hours, PRN as needed, # 1 each, 0 Refills, Maintenance, 09/17/15 13:00:20, Powder aspirin 81 mg oral tablet: 1 tablet = 81 mg, By Mouth, Daily, # 30 tablet, 0 Refills, Maintenance, 09/17/15 13:02:15, Tablet famotidine 20 mg oral tablet: 20 mg, 1, tablet, By Mouth, 2 times a day, # 60 tablet, Refills 0, Maintenance, 09/17/15 12:58:56 levalbuterol 1.25 mg/0.5 mL inhalation solution: 0.5 mL = 1.25 mg, Neb, 3 times a day, PRN for wheezing, # 30 each, 0 Refills, Maintenance, 10/25/15 16:38:35, Solution oxyCODONE 10 mg oral tablet: 2 tablet = 20 mg, By Mouth, Every 6 hours, PRN as needed for pain, 0 Refills, Maintenance, 09/17/15 13:01:38, Tablet Social History Social History Alcohol Details: Use: Past. Substance Abuse Details: Use: Never. Tobacco Details: Former smoker, Tobacco user in household: No. Other: pt states he quit 15 yrs ago. . above as noted per chart review. Physical Examination Significant Findings on Physical Exam General: Pt appears resting comfortably in bed in no acute distress Neuro: [On no sedating drips] Pt is alert, oriented, moves x4 extremities spontaneously and to command Cardiac: S1/S2 auscultated, RRR. Currently NSR 80-90 via telemetry w/ BP 90-100/40-50 via right radial a-line. Periph pulses faintly palpable in b/l upper extremities, signals to b/l lower extremities; biphasic doplerable signal to Left AT (PT/DP covered by surgical dressings), Right AT/DP biphasic dopplerable signal. No periph edema x4 extremities Pulm: Lungs CTA throughout, current SpO2 94-98% on 2L NC. GI: Abd soft, non-tender, non-distended, Has a moderate sized abdominal hernia noted just left of midline, reducable, without pain to palpation, at baseline per patient. : killian in place w/ yellow urine in bag. MSK: moves x4 extremities w/o gross deformity Integ: Has srgical incision noted to Left leg from mid-thigh extending to superior portion of anklew/ sero-sang stained gauze dressing under tegaderm. Additionally has a c/d/i dressing to left foot/wrapped around ankle from L1/L4 debridement sites. Also noted to have ulcerations that appear chronic to Right heel on plantar aspect, appears as pictured in proposal development manager. Additionally has a blanchable redness to Left buttock/sacrum. Skin otherwise grosly w/d/i. Results Review Today's results 05/15/2022 23:22 EDT Glucose, POC 154 mg/dL H 05/15/2022 22:48 EDT Glucose, POC 172 mg/dL H 05/15/2022 22:00 EDT Normothermic Measures Brendan hatfield Heart Rate Monitored 74 bpm Heart Rate Monitored 74 bpm Respiratory Rate 13 br/min L Respiratory Rate 14 br/min L Systolic Blood Pressure 92 mm Hg Diastolic Blood Pressure 61 mm Hg Systolic Arterial Blood Pressure 107 mm Hg Systolic Arterial Blood Pressure 107 mm Hg Diastolic Arterial Blood Pressure 44 mm Hg L Diastolic Arterial Blood Pressure 44 mm Hg L Blood pressure sites Arm, right Mean Arterial Pressure Monitored 63 mm Hg Mean Arterial Pressure Monitored 63 mm Hg Pulse Pressure 31 mm Hg Oxygen Saturation 100 % Oxygen Saturation 100 % Mode of Delivery (Oxygen) Room air Mode of Delivery (Oxygen) Room air 05/15/2022 21:47 EDT Glucose, POC 212 mg/dL H 05/15/2022 20:20 EDT WBC 24.1 k/mm3 H RBC 3.59 m/mm3 L Hgb 11.7 Gm/dL L Hct 33.2 % L MCV 92.5 femtoliters MCH 32.6 pg MCHC 35.2 g/dL Platelet Count 224 k/mm3 RDW-SD 50.2 femtoliters H MPV 8.6 femtoliters L Nucleated RBC (Automated) 0.0 #/100 WBC'S Abs. NRBC 0.0 k/mm3 Abs. Neut 21.2 k/mm3 H Abs. Lymph 1.2 k/mm3 Abs. Mcdonald 1.2 k/mm3 Abs. Eo 0.1 k/mm3 Abs. Baso 0.1 k/mm3 Neut % 88.2 % H Lymph % 5.1 % L Mcdonald % 5.2 % Eos % 0.5 % Baso % 0.2 % RBC Morphology SLIGHT Platelet Comment FEW Imm Gran 0.8 % Abs. Imm Gran 0.2 k/mm3 INR 1.0 Protime (PT) 10.6 seconds APTT 22.8 seconds L Sodium 135 mmol/L Potassium 4.2 mmol/L Chloride 103 mmol/L Bicarbonate Level 20 mmol/L L Anion Gap 12 Glucose Level 177 mg/dL H BUN 15 mg/dL Creatinine-Blood 0.7 mg/dL Estimated GFR Creatinine 93 ML/MIN/1.73 M2 Calcium, Ionized pH Corrected 1.13 mmol/L Phosphorus 4.6 mg/dL H Magnesium 1.8 mg/dL Lactate 3.9 mmol/L H 05/15/2022 20:16 EDT pH (POC) POC Cartridge 7.33 L pCO2 (POC) POC Cartridge 44.0 mm Hg pO2 (POC) POC Cartridge 315 mm Hg H Estimated Bicarbonate (POC) POC Cart 23.0 mmol/L % O2 Sat Arterial (POC) POC Cartridge 100 % Base Excess (POC) POC Cartridge NEGATIVE 3 Specimen Type - Blood Gas ARTERIAL Hemoglobin (POC) POC Cartridge 11.6 Gm/dL L Hematocrit (POC) POC Cartridge 34 % L Sodium (POC) POC Cartridge 132 mmol/L L Potassium (POC) POC Cartridge 4.7 mmol/L Glucose (POC) POC Cartridge 248 H Ionized Calcium (POC) POC Cartridge 1.14 mmol/L 05/15/2022 19:30 EDT RBC Unit ID [id number] (Modified) RBC Available IS (Modified) 05/15/2022 19:30 EDT pH (POC) POC Cartridge 7.37 pCO2 (POC) POC Cartridge 39.6 mm Hg pO2 (POC) POC Cartridge 220 mm Hg H Estimated Bicarbonate (POC) POC Cart 22.7 mmol/L % O2 Sat Arterial (POC) POC Cartridge 100 % Base Excess (POC) POC Cartridge NEGATIVE 3 Specimen Type - Blood Gas ARTERIAL Hemoglobin (POC) POC Cartridge 9.2 Gm/dL L Hematocrit (POC) POC Cartridge 27 % L Sodium (POC) POC Cartridge 134 mmol/L Potassium (POC) POC Cartridge 4.6 mmol/L Glucose (POC) POC Cartridge 230 H Ionized Calcium (POC) POC Cartridge 1.08 mmol/L L 05/15/2022 19:21 EDT Lactate, (POC) POC Cartridge 1.7 mmol/L 05/15/2022 17:11 EDT RBC Unit ID [id number] RBC Available IS (Modified) 05/15/2022 17:01 EDT pH (POC) POC Cartridge 7.40 pCO2 (POC) POC Cartridge 45.2 mm Hg pO2 (POC) POC Cartridge 281 mm Hg H Estimated Bicarbonate (POC) POC Cart 27.9 mmol/L % O2 Sat Arterial (POC) POC Cartridge 100 % Base Excess (POC) POC Cartridge 3 Specimen Type - Blood Gas ARTERIAL Hemoglobin (POC) POC Cartridge 8.8 Gm/dL L Hematocrit (POC) POC Cartridge 26 % L Sodium (POC) POC Cartridge 130 mmol/L L Potassium (POC) POC Cartridge 4.6 mmol/L Glucose (POC) POC Cartridge 220 H Ionized Calcium (POC) POC Cartridge 1.20 mmol/L 05/15/2022 15:28 EDT pH (POC) POC Cartridge 7.37 pCO2 (POC) POC Cartridge 51.2 mm Hg H pO2 (POC) POC Cartridge 235 mm Hg H Estimated Bicarbonate (POC) POC Cart 29.3 mmol/L H % O2 Sat Arterial (POC) POC Cartridge 100 % Base Excess (POC) POC Cartridge 4 Specimen Type - Blood Gas ARTERIAL Hemoglobin (POC) POC Cartridge 10.9 Gm/dL L Hematocrit (POC) POC Cartridge 32 % L Sodium (POC) POC Cartridge 130 mmol/L L Potassium (POC) POC Cartridge 4.4 mmol/L Glucose (POC) POC Cartridge 202 H Ionized Calcium (POC) POC Cartridge 1.23 mmol/L 05/15/2022 9:29 EDT Glucose, POC 106 mg/dL H 05/15/2022 8:52 EDT Hold Lavender Top SPECIMEN DISCARDED AFTER 24 HOURS. 05/15/2022 8:01 EDT Blood Type O Positive Antibody Screen Negative Impression and Plan Rad Acosta is a 81yo male w/ PMH significant for CAD, COPD, chronic left knee pain, diabetes, HTN, and HLD who presented for a planned vascular surgery w/ Dr. Woo. He reportedly has had b/l lower extremity pain for approx 2 years with various poorly healing skin ulcerations to his bilateral feet/heels which prompted the vascular surgery workup. He had presented for an initially planned Left fem to pop bypass which resulted in a Left fem to AT bypass utilizing his left greater saphenous vein for graft also with debridement of his Left 1st toe w/ removal of left 4th toenail. During the case he remained hypotensive despite 2units of PRBC and 5.5L of IVF resuscitation and an EBL of approx 650. He was admitted to the STICU post-op still on Levophed for BP support but extubated. He was admitted for hemodynamic support. Neuro: Acute post-op pain PMH: chronic lower extremity pain - pain regimen: tylenol 650 q6 scheduled, PRN oxycodone 5mg q6 (takes 20mg oxycodone PRN at home for baseline foot pain, though per patient report doesn't take it that often) - consider starting gabapentin in AM for neuropathy. - Neuro checks per unit standard - ICU Delirium-limiting non-pharmacologic management (sleep/wake cycle, noise control, clustered care, etc.) Cardiac: Hypotension requiring vasoactive support PMH: CAD PMH: HTN PMH: HLD - resume home atorvastatin 80 qhs - f/u in AM w/ vascular team if okay to resume home aspirin - hold home bisoprolol - continue levophed for goal of MAP > 65. May require a central line in AM if remains on pressors - fluid boluses as needed, guided by lactate's, BP, and urine output - Monitor Telemetry - ekg without obvious ischemia appearing changes. Pulm: PMH: COPD, not on O2 at home. - Wean O2 as tolerated (presented to STICU initially on a facemask, weaned to 2L NC, will continue to wean) - Goal SpO2 > 88%, supplemental O2 PRN - IS - continue home budesonide/formoterol via nebulizers GI: PMH: GERD PMH: umbilical hernia - diet: NPO except medications, f/u re: advancement w/ vascular team in AM. - continue home famotidine Renal: Lactic acidosis - mIVF of LR @ 100cc/hr while NPO - stat/q6 lactates until cleared - fluid boluses as needed, guided by lactate's, BP, and urine output - Monitor u/o/p - stat/Daily BUN/Cr - stat/Daily electrolytes w/ divalents, replete PRN Heme/Onc: acute blood loss anemia 2/2 surgery, s/p 2units PRBC in OR - monitor for bleeding at surgical sites - heparin 5000 tid subq for ppx. - stat/Daily CBC ID: No active issues - received pre-op Ancef, no need for ongoing antibiotics per vascular surgery team - Trend Temp/WBC Endo: PMH: T2DM - holding home lantus 12units qhs - was started on insulin infusion while in OR for elevated glucoses, will titrate per protocol, if low, will d/c and change to ISS while NPO - ISS/PoC Q6 - ICU Insulin protocol MSK/Integ: s/p Left fem to AT bypass w/ L1/L4 toe debridement Right heel ulcers Left buttock erythema, blanchable - frequent repositioning/turning - consider wound consult in AM, refer to multimedia viewer for image of Right heel ulcer - maintain surgical dressings to Left leg incision, monitor for discharge/drainage. Social: - NOK: sister, Wendi Jones, , to be updated by vascular surgery team post-op. - Visitation limited 2/2 COVID-19 pandemic. Plan to update family daily or more frequently as clinically warranted Prophylaxis: HoB > 30 GI: famotidine 20 bid, continuation from home. DVT: heparin 5000 tid Primary surgical team: vascular Dispo: remain in STICU for hemodynamic support management. Patient seen and plan of care discussed w/ STICU attending, Dr. Venessa Mares, [facility] Split Shared Critical Care Time: 35 minutes This time is reflective of the time I personally spent assessing, evaluating, and managing patient care and is not door to door sales representative of independently billable items such as procedures or family meetings. This patient is critically ill and requiring high complexity decision making with frequent evaluation and titration of therapies for the following conditions: acute post-op pain, hypotension requiring vasoactive support, acute blood loss anemia, diabetes, and s/p Left fem to AT bypass. Date of Service: 05/15/22 * Venessa WEBBER, Sergio Willson: PERFORM Event Display: Admission Note Authored Date: [id number] I have seen and evaluated this patient. I have discussed the case with the SICU team on the date ofservice documented above. The clinical course, labs, and radiological studies were reviewed by me and the findings on exam confirmed. I agree with the findings as well as the assessment and plan as delineated above with the following clarifications, modifications and additions: System Diagnoses and Plans: Neuro - Pain control: tylenol 650 q6 scheduled, PRN oxycodone 5mg q6 (takes 20mg oxycodone PRN at home for baseline foot pain), start gabapentin - Sedation: ICU Delirium-limiting non-pharmacologic management Cardiovascular - Continue home statin, aspirin - levophed for MAP >65, fluid bolus as needed Pulmonary - initially on a facemask, weaned to 2L NC, will continue to wean FEN/ GI - NPO except medications - Home dose pepcid Renal - killian catheter for strict I/O, replace electrolytes as needed ID - preop ancef, no further abx required Heme - s/p fem to AT bypass, + L AT pulse, monitor for signs of bleeding or ischemia - DVT ppx heparin and SCDs Endo - BGL goal 140-180, currently on insulin gtt MSK - consider wound consult in AM, refer to multimedia viewer for image of Right heel ulcer Dispo- Continue ICU level of care At the time of service, this patient is critically ill due to the acute impairment of 1 or more vital organ systems such that there is a high probability of imminent or life-threatening deteriorationin the patient???s condition. Critical Care Time: 45 min (This represents the total time I personally spent evaluating, managing and providing care exclusive of time spent for separately billable procedures.) --- Sergio Clifford MD Division of Trauma, Acute Care Surgery, and Surgical Critical Care EKG study * Event Display: ECG 12-Lead Authored Date: [id number] Please click on pdf link to open report * Event Display: ECG 12-Lead Authored Date: [id number] Ventricular Rate: 125 BPM Atrial Rate: 127 BPM P-R Interval: 152 ms QRS Duration: 92 ms Q-T Interval: 314 ms QTC Calculation(Bazett): 453 ms R Jayess: 69 degrees T Jayess: -9 degrees Probably Sinus tachycardia Low voltage QRS Nonspecific ST abnormality Abnormal QRS-T angle, consider primary T wave abnormality Abnormal ECG When compared with ECG of 17-MAY-2022 06:34, T wave inversion now evident in Inferior leads Nonspecific T wave abnormality no longer evident in Lateral leads Heart rate has increased by 37 BPM Confirmed by ASHLY DONALDSON MD ([id number]) on 05/22/2022 7:10:39 PM [place]: ASHLY DONALDSON MD * Event Display: ECG 12-Lead Authored Date: [id number] Please click on pdf link to open report * Event Display: ECG 12-Lead Authored Date: [id number] Ventricular Rate: 93 BPM Atrial Rate: 93 BPM P-R Interval: 160 ms QRS Duration: 92 ms Q-T Interval: 358 ms QTC Calculation(Bazett): 445 ms P Jayess: 71 degrees R Jayess: 47 degrees T Jayess: 62 degrees Normal sinus rhythm Low voltage QRS Nonspecific ST abnormality Abnormal ECG When compared with ECG of 16-MAY-2022 16:41, Previous ECG has undetermined rhythm, needs review Confirmed by MARGARITA TOLENTINO MD ([id number]) on 05/17/2022 7:34:44 AM [place]: MARGARITA TOLENTINO MD * Event Display: ECG 12-Lead Authored Date: [id number] Please click on pdf link to open report * Event Display: ECG 12-Lead Authored Date: Ventricular Rate: 130 BPM QRS Duration: 90 ms Q-T Interval: 320 ms QTC Calculation(Bazett): 470 ms R Jayess: 53 degrees T Jayess: 56 degrees Sinus tachycardia Low voltage QRS ST depression anterior leads consider ischemia Abnormal ECG When compared with ECG of 16-MAY-2022 04:44, No significant change was found Confirmed by XANDER MULLEN ([id number]) on 05/17/2022 6:26:02 AM [place]: XANDER MULLEN Note * Rocky Mcnair RN: PERFORM Event Display: Discharge/Transfer Note Hospital Authored Date: [id number] Nursing Discharge Note Entered On: 05/23/2022 16:17 EDT Performed On: 05/23/2022 16:16 EDT by Rocky Mcnair RN Nursing Discharge Note 2 Discharge Time : 05/23/2022 16:15 EDT Discharge Level of Care at Discharge : [facility] facility Discharge Nursing Homes/Rehab Facilities : [facility] Patient Left Unit Via : Wheelchair Patient Accompanied Off Unit with : Responsible adult DC Instructions Provided & Signed by Pt : Yes Patient Understands D/C Instructions : Yes Patient Instructions Discharge Signed : Yes Did Pt have Specialty Bed or Wound Vac : No Rocky Mcnair RN - 05/23/2022 16:16 EDT * Bronwyn Perkins NP: PERFORM, SIGN, VERIFY Event Display: Discharge/Transfer Note Hospital Authored Date: [id number] Patient: RAD ACOSTA Age: 81 years Sex: Male : 1940 Associated Diagnoses: None Author: Bronwyn Perkins NP Discharge Information Admission Date: 05/15/2022 Discharge Date 05/23/2022 Primary Care Provider: Juanjose Flynn MD Principal Discharge Diagnosis Peripheral vascular disease of extremity: Present on admission - yes. Secondary Discharge Diagnoses Hyperlipidemia: Present on admission - yes. Essential hypertension: Present on admission - yes. Diabetes: Present on admission - yes. COPD, moderate: Present on admission - yes. Chronic pain of left knee: Present on admission - yes. CAD in [place] artery: Present on admission - yes. Medications MEDICATION LIST (Selected) Prescriptions Prescribed atorvastatin 80 mg oral tablet: 1 tablet = 80 mg, By Mouth, Daily at supper, # 90 tablet, 3 Refills, Maintenance, Route to Pharmacy Electronically, [id number], [facility][id number] bisoprolol 5 mg oral tablet: 1 tablet = 5 mg, By Mouth, Daily, # 30 tablet, 5 Refills, Maintenance,12/14/15 15:49:33, Tablet lactulose 10 gm/15 ml oral syrup: 15 mL = 10 Gm, By Mouth, Daily, PRN as needed for constipation, #450 mL, 3 Refills, Maintenance, 11/29/15 9:46:32, Syrup, 15 mL By Mouth Daily,x30 days,PRN:as needed for constipation Documented Medications Documented Centrum Silver Men's: 1 tablet, By Mouth, Daily, 0 Refills, Maintenance, 09/17/15 13:03:26 Flomax 0.4 mg oral capsule: 0.4 mg, 1, capsule, By Mouth, Daily, Refills 0, Maintenance, 05/23/22 14:13:00 EDT, Partial fill upon patient request if the prescription is for a schedule II opioid drug. Lantus Solostar Pen 100 units/mL subcutaneous solution: Subcutaneous Infusion, 12 units, 0 Refills,Maintenance, 09/17/15 13:01:02 MiraLax: = 17 Gm, By Mouth, Daily, 0 Refills, Maintenance, 05/12/22 9:22:00 EDT, Partial fill upon patient request if the prescription is for a schedule II opioid drug. NovoLOG FlexPen 100 units/mL subcutaneous solution: Subcutaneous Infusion, 3 times a day before meals, 0 Refills, Maintenance, 09/17/15 13:00:45 Spiriva HandiHaler 18 mcg Inhalation Capsule: 1 capsule = 18 mcg, Inhalation, Daily, 0 Refills, Maintenance, 09/17/15 12:59:21, Capsule Symbicort 160mcg/4.5mcg Inhaler: 2, puffs, Inhalation, 2 times a day, # 10.2 Gm, Refills 0, Maintenance, 09/17/15 12:59:43, Aerosol Tylenol 325 mg oral tablet: 650 mg, 2, tablet, By Mouth, Every 6 hours, Refills 0, Maintenance, 05/23/22 14:13:00 EDT, Partial fill upon patient request if the prescription is for a schedule II opioid drug. albuterol 90 mcg/inh inhalation powder: 2 puffs, Inhalation, Every 4 hours, PRN as needed, # 1 each, 0 Refills, Maintenance, 09/17/15 13:00:20, Powder aspirin 81 mg oral tablet: 1 tablet = 81 mg, By Mouth, Daily, # 30 tablet, 0 Refills, Maintenance, 09/17/15 13:02:15, Tablet famotidine 20 mg oral tablet: 20 mg, 1, tablet, By Mouth, 2 times a day, # 60 tablet, Refills 0, Maintenance, 09/17/15 12:58:56 levalbuterol 1.25 mg/0.5 mL inhalation solution: 0.5 mL = 1.25 mg, Neb, 3 times a day, PRN for wheezing, # 30 each, 0 Refills, Maintenance, 10/25/15 16:38:35, Solution oxyCODONE 10 mg oral tablet: 2 tablet = 20 mg, By Mouth, Every 6 hours, PRN as needed for pain, 0 Refills, Maintenance, 09/17/15 13:01:38, Tablet. Chief Complaint/Reason for Admission Peripheral Artery Disease Aware of diagnosis: patient. Procedures Patient: RAD ACOSTA Age: 81 Years Sex: Male : 1940 Indication for Surgery RAD ACOSTA is a marie 81-year-old gentleman who presented with gangrenous changes to his left great toe and right heel, and underwent angiography showing occlusion of bilateral popliteal arteries. He presents today for left lower extremity bypass femoral to popliteal vs. tibial with graft vs. vein, possible femoral endarterectomy,possible angiography, possible left toe debridement. 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 Allergies Allergic Reactions (Selected) NKA Discharge condition: good Compared to admission: improved Code status: Full Hospital Course Postoperative Events Unexpected Return to the OR: no. Bleeding required re-operation: no. RAD ACOSTA is a 81-year-old man who presented on 05/15/22 to vascular surgery clinic with nonhealing ulcers of the left great toe with gangrene and diminished pulses concerning for chronic limb threatening ischemia, subsequently transferred to [facility] to undergo planned intervention, now s/p left fem to AT bypass utilizing his left greater saphenous vein for graft also with debridement of his Left 1st toe w/ removal of left 4th toenail(05/15/22/Chilo). Extubated successfullyat end of case, however unable to wean pressors and therefore transferred to STICU for hemodynamic monitoring and pressor support. At this time, he is no longer requiring pressors, on room air, pain controlled. Has since been transferred out of STICU to M6. On 05/20, developed increased leukocytosis to 16, now ttrending down. CXR and UA were not concerning for infectious process. Hemoglobin also appears to be downtrending and is 7.5 . Has required 2 straight caths over weekend, started on Flomax,has voided x 2 , and had +BM today. KUB unremarkable, showed constipation. Still has some edema, Lasix 20 IV given with appropriate response; Pt recommends rehab. Pt has met all discharge milestones and is appropriate for dispo to rehab today, 05/23. AC: ASA 81mg daily Statin: Atorvastatin 80mg daily General: no acute distress Neuro: Pt is alert, oriented, moves x4 extremities spontaneously and to command Cardiac: RRR, tachy at times Pulm: Lungs CTA GI: Abd soft, non-tender, non-distended, Has a moderate sized abdominal hernia noted just left of midline; +BM 05/22 :voided x 2 MSK: moves x4 extremities w/o gross deformity Integ: LLE /groin with multiple incisions, jose g in tact, well-approximated wound edges, dry, no hematoma/ecchymosis/purulent discharge; all compartments soft, compressible; +edema Vasc: Left BP x3; faint DP,PT; L1 debridement site with clean wound base, dry; no drainage, no periwound erythema. Discharge Plan Discharge Disposition Discharge: Post Acute Care. ASSEMBLY WORKER: Physical Therapy SOAP Comments : S: Pt reports most of his pain is coming from his medial thigh incision as well as his heels, especially when he weight bears. O: Pt presents in recliner. Agreeable to PT. Performed AP's, LAQ x25. Seated marching x5. Pt STS toww with Min A, gait train x~30ft with full turn half way through. Deferred further amb due to increased pain, fatigue noted with several rest breaks, step to gait pattern with post op shoe L, sneakerR. Pt stand > sit with good hand placement and eccentric control. Made comfortable with needs in reach, alarm on. A: Pt with good control of walker. Able to tolerate weight bearing through L LE for a increasing distance before needing seated rest. Pt does not tolerate full wbing LLE and demo heavy ww reliance. Pt with limited dorsiflexion in L ankle. Pt would benefit from further PT to increase strength and functional mobility to allow for safe d/c home, barriers for safe dc home include decreased functional mobility and unable to safely ambulate household distances P: Acute rehab recomended, progress towards goals for safest dispo Ekta Mi - 05/22/2022 15:16 EDT Bed mobility: PT Plan : Contact guard Transfer bed to chair PT Plan : Contact guard Transfer Sit to Stand, PT Plan : Minimal assist Ambulation, PT Plan : Contact guard Goals Patient/Family : Return to [facility] Hiwot Ekta - 05/22/2022 14:00 EDT . Report sent to all consultants: Rina WEBBER , Juanjose Corona RN, Judi: PERFORM, MODIFY Event Display: Patient Education/Instruction Authored Date: [id number] Inpatient Adult Discharge Instructions [address] [address] Name: RAD ACOSTA : 1940 Visit: 05/15/2022 06:55:00 Current Date: 05/23/2022 15:00 Account: [id number] Inpatient Adult Discharge Instructions We would like to thank you for allowing us to assist you with your healthcare needs. The following includes patient education materials and information regarding your injury/illness. Our entire staffstrives to provide an excellent experience for our patients and their families. PLEASE ENSURE YOU FOLLOW-UP PER THE INSTRUCTIONS BELOW! ?? YOUR OPINION IS IMPORTANT TO US! Please complete the survey you may receive by mail or email. Your feedback will be used to make improvements to the healthcare experiences of our patients and their families. Surveys are administered by [employer] ?? If further treatment with your primary care physician or another doctor is recommended, it is important for you to keep the appointment. Call your primary care physician or return to the Emergency Department immediately if your condition worsens, fails to improve, or new symptoms develop. If you need to find a doctor, you can call [facility] [employer] [place] [employer] [facility] for a referral at [phone] or toll free at [phone]) or log in to [email or web address].. ?? You can view and manage your care through the patient portal or by using a health care yunier of your choosing. [employer] is a website that allows you to securely view your medical information including your hospital discharge summary, office visit summaries, medications and follow-up visits. You can also request appointments, renew medications, and request access to your medical information using a health care yunier of your choosing, or just ask a question. You can enroll at [email or web address] or register during your next office visit. You have been discharged from [facility], Patient Care Unit: M6. If you have any questions regarding these instructions after you leave, please call us and we will be happy to assist you. [facility] Your Care Team Consulting Providers Chilo WEBBER, Delia Spencer Discharging Providers Gregorio COLE, Bronwyn Reason for Admission NONHEALNG ULCERS LEFT FEMBK POP MUKESH [id number] ARR Your Diagnosis Peripheral vascular disease of extremity COPD, moderate Diabetes Essential hypertension Chronic pain of left knee Hyperlipidemia CAD in [place] artery Tests Performed Below is a partial list of the tests performed during your hospitalization. You may have had other tests and procedures not included in this list. Please discuss all test results with your provider. ABG POC CARTRIDGE BASE EXCESS POC CARTRIDGE BUN Calcium Ionized CALCIUM IONIZED POC CART CBC CBC w/ Differential COVID-19 (NOVEL CORONAVIRUS) PCR COVID-19 (NOVEL CORONAVIRUS), PCR Creatinine Electrolytes Glucose Level GLUCOSE POC GLUCOSE POC CARTRIDGE HEMATOCRIT POC CARTRIDGE HEMOGLOBIN POC CARTRIDGE HOLD GREEN TUBE HOLD LAVENDER TUBE INR Ionized Calcium Lactate Level LACTIC ACID POC CART Lytes Magnesium Level Mg Level Phosphorus Level POTASSIUM POC CARTRIDGE PTT SODIUM POC CARTRIDGE Type and Screen UA CXR Portable KUB Primary Care Provider Rina WEBBER , Juanjose Em Advance Directive Health Care Proxy on File No Discharge Vitals Temperature: 98.9 DegF Height: 165 cm Pulse Rate: 90 bpm Weight: 62.4 kg Respiratory Rate: 20 br/min Body Mass Index: 20.2 kg/m2 Systolic Blood Pressure: 109 mm Hg Body surface area: 1.59 Diastolic Blood Pressure: 56 mm Hg ?? Oxygen Saturation: 98 % ?? Studies Pending All tests and labs ordered during this hospital stay have been completed unless listed below. Please discuss all pending results with your provider listed above in these instructions. ?? Blood Culture Blood Culture #2 COVID-19 (2019 Novel Coronavirus) PCR What to do next Instructions From Your Doctor Discharge Orders Scheduled Follow-Up Appointments Sunday 2:30 PM EDT ?? With: Stephon PRINCE, Kieran Chen Where: [facility] [address] [place] [address]- You Need to Schedule the Following Appointments Follow Up with??Rina WEBBER , Juanjose Em When?? Where: [address] [place] [id number]- Discharge Medications DAVERAD BHATT :1940 Visit Date:05/15/2022 Medications: Please continue your medications until treatment is completed or stopped by your provider. Medications not listed below should be discontinued. Discuss any questions related to medications with your provider. What How Much When Instructions Next Dose New Acetaminophen (Tylenol 325 mg oral tablet) 2 tab(s) Oral Every 6 hours Tonight 05/23 9 PM New Tamsulosin (Flomax 0.4 mg oral capsule) 1 capsule Oral Daily Tomorrow 05/24 9 am Unchanged Albuterol (albuterol 90 mcg/ inh inhalation powder) 2 puff(s) Inhalation Every 4 hours as needed for as needed as needed Unchanged Aspirin (aspirin 81 mg oral tablet) 1 tab(s) Oral Daily Tomorrow 45 9 am Unchanged Atorvastatin (atorvastatin 80 mg oral tablet) 1 tab(s) Oral Daily at supper Duration: 90 Days Today 4/5 6 PM Unchanged Bisoprolol (bisoprolol 5 mg oral tablet) 1 tab(s) Oral Daily Tomorrow 4/5 9 am Unchanged Budesonide-Formoterol (Symbicort 160mcg/ 4.5mcg Inhaler) 2 puff(s) Inhalation Twice a day Tonight 05/23 9 PM Unchanged Famotidine (famotidine 20 mg oral tablet) 1 tab(s) Oral Twice a day Tonight 05/23 9 PM Unchanged Insulin Aspart (NovoLOG FlexPen 100 units/ mL subcutaneous solution) Subcutaneous Infusion 3 times a day before meals patient unsure of sliding scale/verify with PCP Today 05/23 before dinner Unchanged Insulin Glargine (Lantus Solostar Pen 100 units/ mL subcutaneous solution) Subcutaneous Infusion 12 units ?? Tonight 05/23 9 PM Unchanged Lactulose (lactulose 10 gm/ 15 ml oral syrup) 15 Milliliter Oral Daily as needed for as needed for constipation Duration: 30 Days as needed Unchanged Levalbuterol (levalbuterol 1.25 mg/ 0.5 mL inhalation solution) 0.5 Milliliter Nebulized inhalation 3 times a day as needed for for wheezing as needed Unchanged Multivitamin With Minerals (Centrum Silver Men's) 1 tab(s) Oral Daily Tomorrow 05/24 9 am Unchanged Oxycodone (oxyCODONE 10 mg oral tablet) 2 tab(s) Oral Every 6 hours as needed for as needed for pain as needed Unchanged PEG Electrolyte Solution (MiraLax) 17 gram Oral Daily as ordered Unchanged Tiotropium (Spiriva HandiHaler 18 mcg Inhalation Capsule) 18 Microgram Inhalation Daily Tomorrow 05/24 9 am Test Results Below is a partial list of the most recent Laboratory test results done prior to this discharge. You may have had other tests and procedures not included in this list. Please discuss all test resultswith your provider. RBC Available - PT (05/15/2022) RBC Unit ID - [id number] (05/15/2022) ABG POC CARTRIDGE (05/15/2022) ???pH (POC) POC Cartridge - 7.33???pCO2 (POC) POC Cartridge - 44.0 mm Hg???pO2 (POC) POC Cartridge - 315 mm Hg???Estimated Bicarbonate (POC) POC Cart - 23.0 mmol/L???% O2 Sat Arterial (POC) POC Cartridge - 100 %???Specimen Type - Blood Gas - ARTERIAL BASE EXCESS POC CARTRIDGE (05/15/2022) ???Base Excess (POC) POC Cartridge - NEGATIVE 3 BUN (05/22/2022) ???BUN - 13 mg/dL Calcium Ionized (05/21/2022) ???Calcium, Ionized pH Corrected - 1.17 mmol/L CALCIUM IONIZED POC CART (05/15/2022) ???Ionized Calcium (POC) POC Cartridge - 1.14 mmol/L CBC (05/22/2022) ???WBC - 13.2 k/mm3???RBC - 2.51 m/mm3???Hgb - 7.9 Gm/dL???Hct - 24.0 %???MCV - 95.6 femtoliters???MCH - 31.5 pg???MCHC - 32.9 g/dL???Platelet Count - 415 k/mm3???RDW-SD - 49.1 femtoliters???MPV - 8.7 femtoliters???Nucleated RBC (Automated) - 0.0 #/100 WBC'S???Abs. NRBC - 0.0 k/mm3 CBC w/ Differential (05/21/2022) ???WBC - 13.9 k/mm3???RBC - 2.38 m/mm3???Hgb - 7.5 Gm/dL???Hct - 22.5 %???MCV - 94.5 femtoliters???MCH - 31.5 pg???MCHC - 33.3 g/dL???Platelet Count - 291 k/mm3???RDW-SD - 47.5 femtoliters???MPV - 9.0 femtoliters???Nucleated RBC (Automated) - 0.0 #/100 WBC'S???Abs. NRBC - 0.0 k/mm3???Abs. Neut - 10.7 k/mm3???Abs. Lymph - 1.3 k/mm3???Abs. Mcdonald - 1.5 k/mm3???Abs. Eo - 0.2 k/mm3???Abs. Baso - 0.1 k/mm3???Neut % - 77.0 %???Lymph % - 9.1 %???Mcdonald % - 10.9 %???Eos % - 1.4 %???Baso % - 0.4 %???Imm Gran - 1.2 %???Abs. Imm Gran - 0.2 k/mm3 COVID-19 (NOVEL CORONAVIRUS) PCR (05/18/2022) ???COVID-19 PCR Specimen Source - NASAL???COVID-19 PCR Result - NEGATIVE COVID-19 (NOVEL CORONAVIRUS), PCR (05/22/2022) ???COVID-19 by RT-PCR - NEGATIVE Creatinine (05/22/2022) ???Creatinine-Blood - 0.6 mg/dL???Estimated GFR Creatinine - 99 ML/MIN/1.73 M2 Electrolytes (05/21/2022) ???Sodium - 126 mmol/L???Potassium - 4.3 mmol/L???Chloride - 92 mmol/L???Bicarbonate Level - 28 mmol/L???Anion Gap - 6 Glucose Level (05/21/2022) ???Glucose Level - 114 mg/dL GLUCOSE POC (05/23/2022) ???Glucose, POC - 204 mg/dL GLUCOSE POC CARTRIDGE (05/15/2022) ???Glucose (POC) POC Cartridge - 248 HEMATOCRIT POC CARTRIDGE (05/15/2022) ???Hematocrit (POC) POC Cartridge - 34 % HEMOGLOBIN POC CARTRIDGE (05/15/2022) ???Hemoglobin (POC) POC Cartridge - 11.6 Gm/dL HOLD GREEN TUBE (05/15/2022) ???Hold Green Top - SPECIMEN DISCARDED AFTER 1 WEEK HOLD LAVENDER TUBE (05/15/2022) ???Hold Lavender Top - SPECIMEN DISCARDED AFTER 24 HOURS. INR (05/15/2022) ???INR - 1.0???Protime (PT) - 10.6 seconds Ionized Calcium (05/22/2022) ???Calcium, Ionized pH Corrected - 1.18 mmol/L Lactate Level (05/19/2022) ???Lactate - 1.1 mmol/L LACTIC ACID POC CART (05/15/2022) ???Lactate, (POC) POC Cartridge - 1.7 mmol/L Lytes (05/22/2022) ???Sodium - 125 mmol/L???Potassium - 4.2 mmol/L???Chloride - 87 mmol/L???Bicarbonate Level - 32 mmol/L???Anion Gap - 6 Magnesium Level (05/22/2022) ???Magnesium - 1.8 mg/dL Mg Level (05/21/2022) ???Magnesium - 1.7 mg/dL Phosphorus Level (05/22/2022) ???Phosphorus - 3.2 mg/dL POTASSIUM POC CARTRIDGE (05/15/2022) ???Potassium (POC) POC Cartridge - 4.7 mmol/L PTT (05/15/2022) ???APTT - 22.8 seconds SODIUM POC CARTRIDGE (05/15/2022) ???Sodium (POC) POC Cartridge - 132 mmol/L Type and Screen (05/15/2022) ???Blood Type - O Positive???Antibody Screen - Negative UA (05/20/2022) ???Appear/Color, Urine - YELLOW???Specific [place], Urine - 1.015???pH, Urine - 6.5???Albumin, Urine - NEGATIVE???Glucose, Urine - NEGATIVE???Ketones, Urine - TRACE???Bilirubin, Urine - NEGATIVE???Hemoglobin, Urine - NEGATIVE???Nitrite, Urine - NEGATIVE???Leukocyte, Urine - NEGATIVE???Urobilinogen - NORMAL? ?WBC's, Urine - NONE SEEN? ?RBC's, Urine - 2 /HPF? ?Squamous Epith - <1 /HPF Allergies (NKA means No Known Allergies) NKA Problems Active Problems??(6) CAD in [place] artery?? Chronic pain of left knee?? COPD, moderate?? Diabetes?? Essential hypertension?? Hyperlipidemia?? Education Materials Below is the list of Educational Leaflet Providered with your Discharge Instructions. BVS-Special Instructions?? BVS-Toe and ??partial foot Amp?? BVS-Lower Extremity Artery Bypass Graft Discharge Instructions?? Valuables and Belongings I fully understand and agree that [facility] accepts no responsibility for all my personal property including clothing, toilet articles, radios, jewelry, dentures, hearing aids, rings, money, or any other property that is in my possession or is brought to me after admission. I understand certain valuables may be placed in a hospital safe for a short period of time. I understand that the hospital is not liable for loss or damage due to accident, fire, or other natural occurrence while said property is in the safe. I accept full responsibility for any personal property that I keep with me, and will not hold the hospital responsible in case of loss or disappearance. I acknowledge that i have been encouraged to send valuables and belongings home. ?? Review of Valuable and Belonging List: With patient Date for Pt to Sign Valuables/Belongings: 05/16/22 06:02:00 ?? Other Discharge Information ?? Wound Assessment?? Wound Assessment?? Wound Location I: Great toe, left Wound Type I: Vasculitic Wound I, Present on Admission: Yes Surgical Incision Type I: Surgical Surgical Incision I, Odor: No ?? Case Management Discharge Plan?? Discharge Plan?? Discharge Agency Information?? Discharge Level of Care at Discharge: [facility] facility Name of Agency #1: [facility] Discharge Rx Program: Discharge Prescription Program Service Start Date and Time #1: 05/23/22 15:00:00 Discharge Rx Program: Discharge Prescription Program Service Categories #1: Occupational Therapy, Physical Therapy, Residential Discharge Transportation Arranged: [facility] [address] [place] [phone] Name of Person Notified of Transfer: Dtr/HCP Discharge Nursing Homes/Rehab Facilities: [facility] ? Pulmonary Rehab Status?? Pulmonary Rehab Discharge Status?? Respiratory Rate: 20 br/min ? Common Emergency Awareness Tips IS IT A STROKE? Act FAST and Check for these signs: FACE Does the face look uneven? ARM Does one arm drift down? SPEECH Does their speech sound strange? TIME Call at any sign of stroke ?? Heart Attack Signs Chest discomfort: Most heart attacks involve discomfort in the center of the chest and lasts more than a few minutes, or goes away and comes back. It can feel like uncomfortable pressure, squeezing, fullness or pain. Discomfort in upper body: Symptoms can include pain or discomfort in one or both arms, back, neck, jaw or stomach. Shortness of breath: With or without discomfort. Other signs: Breaking out in a cold sweat, nausea, or lightheaded. Remember, MINUTES DO MATTER. If you experience any of these heart attack warning signs, call to get immediate medical attention! ?? Smoking can increase your chances of developing chronic health problems and can cause harmful effects to other family members in your house. If you smoke, you are strongly encouraged to quit. Please call [facility] [place] [facility] at [phone] or [phone] ([phone]) or log in to [email or web address] for referrals to smoking cessation programs. ?? The National Suicide Prevention Hotline is available 11/09 if you or someone you know needs to find a reason to keep living. By calling 6-379-782-Zoyi (2035) you'll be connected to a skilled, trained counselor at a crisis center in your area. INPATIENT DISCHARGE INSTRUCTIONS SIGNATURE PAGE RAD ACOSTA Location:[facility] Registration Date and Time:05/15/2022 06:55 EDT Primary Care Physician: Rina WEBBER , Juanjose Em, I RAD ACOSTA, have received the above patient education materials/instructions and have verbalized understanding. If ambulance or transport services are being used I further acknowledge being given a choice of service. ?? If you need to contact me, please call me at this number: . Patient/Associate Professor Name: Patient/Associate Professor Signature: Relationship to Patient: Witness Name/Signature: Date: * Judi Corona RN: PERFORM Event Display: Patient Education Leaflets Authored Date: [id number] BVS-Special Instructions ?? 60 Vascular Special Instructions ?? If you develop fever, chills, increased pain, nausea, vomiting, bleeding, or increased redness or pus around the wound please call the vascular surgery office at . Please take medications as prescribed and do not drive while on narcotic medications. ?? If you have any questions, please call the vascular surgery office at . ?? Please call your Primary Care Provider within 1 week for post hospital follow up and review of yourmedications. ? * Judi Corona RN: PERFORM Event Display: Patient Education Leaflets Authored Date: [id number] BVS-Toe and partial foot Amp ?? 61 Toe/Partial Foot Amputation Post Operative Discharge Instructions ?? You are being discharged from the hospital.?? Here is information related to your condition to helpyou when you get home.?? In addition, you may have been given the [facility] heart and vascular patient education book.?? This book provides written information and instruction for you to review at home with your family.? Special Instructions Post Operative Discharge Care Instructions Bathing ??? No showering or tub baths until cleared by vascular surgeon. ?? Incision Care ??? Keep your incision clean and dry.?? Use only soap and water to cleanse the area around the incision.?? Once the incision is healed you may wash over the incision with a soft wash cloth and soap and water.? Do not use perfumed soaps or body washes, lotions, creams, oils or ointments on your incision. This may irritate your incision and put you at risk for an infection. ??? Check your incision daily fordrainage, redness, increased tenderness or edges pulling apart.?? Some bruising and discoloration is normal in the first week following surgery. ??? If your incision is still draining, you will learn how to apply dry clean dressings.? If you have steri strips on your incision, remove them on Post-Op Day #5. ?? Limb Elevation ??? You may experience some limb swelling following surgery. ??? Itis important that you are not sitting for long periods of time with your limb down.?? Elevate your limb as much as possible. ??? If you notice swelling, elevate your limb at or above heart level while seated.?? If swelling continues or worsens call the vascular surgery office. ?? Activity ??? When appropriate physical therapy will be ordered.? You may need a post-operative shoe, your vascular surgeon will order if necessary.? It is important to continue to do the coughing and deep breathing exercises to help prevent breathing complications. ?? Driving ??? No driving until cleared byyour surgeon. ??? Always wear a seat belt. ?? Sexual Relations ??? You may resume sexual activity as soon as you feel comfortable. ?? Emotions ??? It is common for people to feel more emotional or have difficulty concentrating or remembering after major surgery.?? These emotions may be the result of anesthesia, medications, not knowing whatto expect and difficulty doing simple tasks without becoming tired.? Pain ??? You may have some muscle or incision discomfort during activity. You will be given prescription medication for the pain and use it if you need it.? Call the Vascular SURGEON ? For any incision redness, swelling, tenderness, drainage, or odor. ??? For a temperature of 101.5 degrees F or greater. ??? For unusual or severe limb pain, loss of sensation or movement, coldness or discoloration of the limb, and any skin breakdown of the limb. ?? Seek care IMMEDIATELY if? You have increased or unusual pain or numbness of limb, or sudden loss of movement in your limb. ??? Your limb becomes very cold, or turns pale or blue ??? You have trouble breathing all of a sudden ??? Your stitches or jose g come apart or separate ??? Your incision suddenly starts bleeding and/or your dressing becomes soaked with blood ?You have signs of a heart attack:?? CALL 911 right away. You may need an ambulance to take you to the hospital. Do not drive yourself or wait for your doctor to call you back.?? Signs of a heart attack may be: o Chest pain or discomfort, including squeezing, crushing, pressure, tightness or heaviness in the chest. o Pain or discomfort in your arms , shoulders, neck, back or jaw. o Indigestion, such as heartburn and upset stomach. o Nausea (feel sick to your stomach) and vomiting (throwing up). o Pain in your abdomen (stomach). o Shortness of breath. o Sweating, weakness or fainting (passing out). Follow-up ??? A follow up appointment should be made with your surgeon for 1 to 2 weeks following discharge.?? If you do not have an appointment scheduled already, make an appointment when you get home.?? Follow up care is important; it is strongly encouraged for you to keep your appointment. You may have more than one appointment, one with your surgeon and one with your primary care doctor. ??? Be sure tosee your primary care physician 1-2 weeks after hospital discharge. ??? Ask your doctor when you can return to work. ??? If you have any questions, please call the vascular surgeons at [phone]. ?? Heart and Vascular Healthy Living You can make style changes that can help lower your risk for heart and vascular disease.?? The following information can help you get started or maintain your current lifestyle. Diet ??? Eat a low fat, low cholesterol diet. ??? Eating 3 to 4 small meals daily maybe better tolerated than 1-2 large meals daily ??? Limit caffeine and alcohol use ??? Limit the amount of salt in your diet Exercise ??? Routine regular or prescribed exercise is strongly encouraged. ??? Avoid strenuous exercise after meals Smoking ??? If you smoke, you are strongly encouraged to quit.? Smoking can increases blood pressure, decrease exercise tolerance and increase the tendency for blood to clot, decrease HDL (good) cholesterol and creates a higher risk for having a heart at tack, stroke or other vascular events.? If you are ready to quit, please let us know; Referrals to smoking cessation programs are available. Lowering your cholesterol ??? Talk to your doctor about taking medicine for high cholesterol. Diet and exercise may not loweryour cholesterol enough. Cholesterol medicines may help prevent further cholesterol build up in thearteries. High blood pressure and diabetes ??? If you have high blood pressure or diabetes, continue with your prescribed treatments.?? These health problems if not controlled can put you at risk for having a heart attack, stroke or other vascular events. ?? Stress ??? Stress may slow healing and cause illness later. Since it is hard to avoid stress, learn to control it. Learn new ways to relax (deep breathing, relaxing muscles, meditation, or biofeedback). Talk to your caregiver about things that upset you. ?? Medication Information Take all your medicationsas prescribed.?? Many medications have more than one name. Be sure you know the name of your medication.?? Call your physician if you have any questions after you get home.?? Keep a written list ([employer]medication card) of what medicines you take and when and why you take them. Bring the list of your medicines or the pill bottles when you see your caregivers. Learn why you take each medicine. Ask your caregiver for information about your medicine. Depending on your condition, you may have other medicines prescribed as part of your discharge plan of care.?? Some may include: ??? Pain Medication :?? Pain medications may be prescribed after surgery.?? Controlling your pain is important to help you heal and increase your activity level.?? One of the side effects of pain medication is constipation.?? If you are taking pain medication on a regular basis, it is important to also take a stool softener that is prescribed. Also, adding high fiber foods, fiber medicines and prune juice may help.? Antibiotics :?? You may be prescribed antibiotics following surgery.?? This medicine may be given to help you fight infection. It is important for you to finish the prescription. ??? REESE inhibitors : These are medicines that keep your blood vessels relaxed and open. They help keep oxygen-rich blood flowing into your heart. These medicines may be used to treat high blood pressure and prevent your heart muscle from weakening. ??? Aldosterone Inhibitors : These medicines prevent scar tissue from forming in your heart.?? It also helps with eliminating extra salt and water. ??? Angiotensin Receptor Blockers (ARB): These medicines lower blood pressure and prevent your heart muscle from weakening. These medicines are used for patients who can not tolerate REESE Inhibitors. ??? Beta-blockers : These medicines keep your heart pumping strongly and regularly and may also lower your blood pressure. Beta blockers lower blood pressure, prevent chest pain and irregular heart beats. ??? Digoxin: This medicine keeps your heart rate slow if your heart is in an irregular rhythm.?? Digoxin may improveactivity tolerance as well.? Diuretics: ?? These medicines help the heart work better by decrea sing the extra fluid in your body.?? Getting rid of the extra fluid will help your heart to not work so hard.?? These medicines may need to be adjusted by your doctor. ??? Vasodilators : These medicines decrease the pressure in your arteries, especially in the vessels around your heart. ??? Anti-coagulants: These medicines help keep the blood from clotting in an artery, vein or the heart. Clots can block the blood flow to your heart muscle and cause a heart attack.?? Clots can also block blood flow to your brain, causing a stroke. ??? Anti-platelets : Anti-platelet medicines, such as aspirin,keep platelets from sticking to a damaged part of your artery. Sticky platelets may cause a blockage in your artery and keep blood from going to your heart muscle. ??? Blood pressure (Anti-hypertensives): These medicines may be given to lower your blood pressure. Keeping your blood pressure under control protects your heart, lungs, brain, kidneys, and other organs. ??? Cholesterol lowering medicines: These help to lower cholesterol that causes coronary (heart) artery disease. ??? Diabetes medicines : These may be given to control the amount of sugar in your blood. It helps your body move the sugar from the blood to your cells, where it is needed for energy. ??? Nitroglycerin: This medicine may also be called nitro. Nitroglycerin opens the arteries to your heart so the heart gets more oxygen. Nitroglycerin can be given in an IV, by mouth, or put on your body as a patch or paste. ? * Cj MEDELLIN, Judi: PERFORM Event Display: Patient Education Leaflets Authored Date: [id number] BVS-Lower Extremity Artery Bypass Graft Discharge Instructions ?? 58 Lower Extremity Artery Bypass Graft Post Operative Discharge Instructions ?? You are being discharged from the hospital.?? Here is information related to your condition to helpyou when you get home.?? In addition, you may have been given the [facility] heart and vascular patient education book.?? This book provides written information and instruction for you to review at home with your family.? Special Instructions Post Operative Discharge Care Instructions Bathing ??? You can take a shower after you are discharged from the hospital if your incision is closed andnot draining on Post-Op Day #5.?? If you are unsteady on your feet use a shower chair.?? Do not take tub baths. ??? You may need assistance with showering the first few days or wait until you feel steady and safe on your feet.? Incision Care ??? Keep your incision clean and dry.?? Use only soapand water to cleanse the area around the incision.?? Once the incision is healed you may wash over the incision with a soft wash cloth and soap and water.? Avoid using perfumed soaps or bodywashes, lotions, creams, oils or ointments on your incision. This may irritate your incision and put you at risk for an infection. ??? Check your incision daily for drainage, redness, increased tenderness or edges pulling apart.?? Some bruising and discoloration is normal in the first week following surgery. ??? If your incision is still draining, you will learn how to apply dry clean dressings.? If you have steri strips on your incision, remove on Post-Op Day #5. ?? Limb Elevation ??? Youmay experience some leg swelling following surgery.?? If leg swelling does occur, check with your doctor for prescription elastic stockings ??? It is important that you are not sitting for long periods of time with feet down.?? Elevate your legs as much as possible. ??? If you notice swelling, eleva te your legs at or above heart level while seated.?? If swelling continues or worsens call the vascular surgery office. ?? Activity ??? Gradually increase your activity.?? This will promote wound healing.?? Remember to alternate periods of activity with periods of rest.?? Talk to your doctor beforebeginning an exercise program.? Avoid lifting anything over 10 pounds until cleared by surgeon.?? A gallon of milk is approximately 8 pounds.? It is important to continue to do the coughingand deep breathing exercises to help prevent breathing complications. ?? Driving ??? You shouldn???t drive until cleared by your vascular Surgeon.?? You may be a passenger, but avoid long rides whereyour feet are hanging down for an extended period of time. ??? Always wear a seat belt. ?? Sexual Relations ??? You may resume sexual activity as soon as you feel comfortable. ?? Emotions ??? It is common for people to feel more emotional or have difficulty concentrating or remembering after major surgery.?? These emotions may be the result of anesthesia, medications, not knowing whatto expect and difficulty doing simple tasks without becoming tired.? These feelings are temporary and usually go away as you get back to your normal routine and activities.? Pain ??? You may have some muscle or incision discomfort. You will be given prescription medication for the pain and use it if you need it.? Call the Vascular SURGEON ? For any incision redness, swelling, tenderness, drainage, or odor. ??? For a temperature of 101.5 degrees F or greater. ??? For unusual or severe leg pain, loss of sensation or movement, coldnessor discoloration of the legs, and any skin breakdown of the foot. ?? Seek care IMMEDIATELY if? You have bad pain in your abdomen, back or side unusual pain or numbness of leg, thigh or calf or sudden loss of movement in your leg ??? Your feet become very cold, or turn pale or blue ??? You have trouble breathing all of a sudden ??? Your stitches or jose g come apart of separate ??? Your incision suddenly starts bleeding and/or your dressing becomes soaked with blood ?You have signs of a heart attack:?? CALL 911 right away. You may need an ambulance to take you to the hospital. Do not drive yourself or wait for your doctor to call you back.?? Signs of a heart attack may be: o Chest pain or discomfort, including squeezing, crushing, pressure, tightness or heaviness in the chest. o Pain or discomfort in your arms, shoulders, neck, back or jaw. o Indigestion, such as heartburnand upset stomach. o Nausea (feel sick to your stomach) and vomiting (throwing up). o Pain in your abdomen (stomach). o Shortness of breath. o Sweating, weakness or fainting (passing out). Follow-up ??? A follow up appointment should be made with your surgeon for 2 weeks following discharge.?? If you do not have an appointment scheduled already, make an appointment when you get home.?? Follow upcare is important; it is strongly encouraged for you to keep your appointment. You may have more than one appointment, one with your surgeon and one with your primary care doctor. ??? Be sure to see your primary care physician 1-2 weeks after hospital discharge. ??? Ask your doctor when you can return to work. ??? If you have any questions, please call the vascular surgeons at [phone]. ??? If an artificial graft has been used, notify your physician and dentist before undergoing any procedur es.?? They may prescribe antibiotics prior to the procedure to reduce the risk of infection. ?? Heart and Vascular Healthy Living You can make style changes that can help lower your risk for heart and vascular disease.?? The following information can help you get started or maintain your current lifestyle. Diet ??? Eat a low fat, low cholesterol diet. ??? Eating 3 to 4 small meals daily may be better tolerated than 1-2 large meals daily ??? Limit caffeine and alcohol use ??? Limit the amount ofsalt in your diet Exercise ??? Routine regular or prescribed exercise is strongly encouraged. ??? Avoid strenuous exercise after meals Smoking ??? If you smoke, you are strongly encouraged to quit.? Smoking can increases blood pressure, decrease exercise tolerance and increase the tendency forblood to clot, decrease HDL (good) cholesterol and creates a higher risk for having a heart attack,stroke or other vascular events.? If you are ready to quit, please let us know; Referrals to smoking cessation programs are available. Lowering your cholesterol ??? Talk to your doctor about taking medicine for high cholesterol. Diet and exercise may not loweryour cholesterol enough. Cholesterol medicines may help prevent further cholesterol build up in thearteries. High blood pressure and diabetes ??? If you have high blood pressure or diabetes, continue with your prescribed treatments.?? These health problems if not controlled can put you at risk for having a heart attack, stroke or other vascular events. Stress ??? Stress may slow healing and cause illness later. Since it is hard to avoid stress, learn to control it. Learn new ways to relax (deep breathing, relaxing muscles, meditation, or biofeedback). Talk to your caregiver about things that upset you. ?? Medication Information Take all your medicationsas prescribed.?? Many medications have more than one name. Be sure you know the name of your medication.?? Call your physician if you have any questions after you get home.?? Keep a written list ([employer] card) of what medicines you take and when and why you take them. Bring the list of your medicines or the pill bottles when you see your caregivers. Learn why you take each medicine. Ask your caregiver for information about your medicine. Depending on your condition, you may have other medicines prescribed as part of your discharge plan of care.?? Some may include: ??? Pain Medication :?? Pain medications may be prescribed after surgery.?? Controlling your pain is important to help you heal and increase your activity level.?? One of the side effects of pain medication is constipation.?? If you are taking pain medication on a regular basis, it is important to also take a stool softener that is prescribed. Also, adding high fiber foods, fiber medicines and prune juice may help.? Antibiotics :?? You may be prescribed antibiotics following surgery.?? This medicine may be given to help you fight infection. It is important for you to finish the prescription. ??? REESE inhibitors : These are medicines that keep your blood vessels relaxed and open. They help keep oxygen-rich blood flowing into your heart. These medicines may be used to treat high blood pressure and prevent your heart muscle from weakening. ??? Aldosterone Inhibitors : These medicines prevent scar tissue from forming in your heart.?? It also helps with eliminating extra salt and water. ??? Angiotensin Receptor Blockers (ARB): These medicines lower blood pressure and prevent your heart muscle from weakening. These medicines are used for patients who can not tolerate REESE Inhibitors. ??? Beta-blockers : These medicines keep your heart pumping strongly and regularly and may also lower your blood pressure. Beta blockers lower blood pressure, prevent chest pain and irregular heart beats. ??? Digoxin: This medicine keeps your heart rate slow if your heart is in an irregular rhythm.?? Digoxin may improveactivity tolerance as well.? Diuretics: ?? These medicines help the heart work better by decrea sing the extra fluid in your body.?? Getting rid of the extra fluid will help your heart to not work so hard.?? These medicines may need to be adjusted by your doctor. ??? Vasodilators : These medicines decrease the pressure in your arteries, especially in the vessels around your heart. ??? Anti-coagulants: These medicines help keep the blood from clotting in an artery, vein or the heart. Clots can block the blood flow to your heart muscle and cause a heart attack.?? Clots can also block blood flow to your brain, causing a stroke. ??? Anti-platelets : Anti-platelet medicines, such as aspirin,keep platelets from sticking to a damaged part of your artery. Sticky platelets may cause a blockage in your artery and keep blood from going to your heart muscle. ??? Blood pressure (Anti-hypertensives): These medicines may be given to lower your blood pressure. Keeping your blood pressure under control protects your heart, lungs, brain, kidneys, and other organs. ??? Cholesterol lowering medicines: These help to lower cholesterol that causes coronary (heart) artery disease. ??? Diabetes medicines : These may be given to control the amount of sugar in your blood. It helps your body move the sugar from the blood to your cells, where it is needed for energy. ??? Nitroglycerin: This medicine may also be called nitro. Nitroglycerin opens the arteries to your heart so the heart gets more oxygen. Nitroglycerin can be given in an IV, by mouth, or put on your body as a patch or paste. ? * Event Display: Cardiac Rhythm Strips Authored Date: * Event Display: Cardiac Rhythm Strips Authored Date: * Event Display: Cardiac Rhythm Strips Authored Date: * Event Display: Provider Clarification Note Please click on pdf link to open report * Event Display: Provider Clarification Note Please click on pdf link to open report Hospital Progress note * Rocky Mcnair RN: PERFORM, SIGN, VERIFY Event Display: Progress Note Hospital Authored Date: [id number] Patient: RAD ACOSTA Age: 81 years Sex: Male : 1940 Associated Diagnoses: None Author: Rocky Mcnair RN Findings Problem Related to Alteration in Tissue Perfusion : Alteration in Tissue Perfusion 05/23/2022 14:58 EDT Alteration Tissue Perfusion related to Vascular Procedure Goals & Outcomes: Tissue perfusion Pt will resume/maintain adequate peripheral circulation, Pt will be hemodynamically stable Interventions: Tissue Perfusion Assess/Monitor peripheral pulses & capillary refill BH Goals/Interventions, Tissue Perfusion Yes Tissue Perfusion, Problem Start 05/23/2022 14:58 Reviewed Plan with, Tissue Perfusion Patient Patient Progression, Tissue Perfusion Pt progressing according to plan . Nursing Data Vital Signs : VITAL SIGNS SECTION 05/23/2022 11:00 EDT Temperature 98.9 DegF Temperature Route Oral Pulse Rate 90 bpm Respiratory Rate 20 br/min Systolic Blood Pressure 109 mm Hg Diastolic Blood Pressure 56 mm Hg Blood pressure sites Arm, right Pulse Pressure 53 mm Hg Oxygen Saturation 98 % Mode of Delivery (Oxygen) Room air . Narrative/Incidental Pt was on the floor for a Fem-POP Bypass on his left leg. He complains of minimal pain and pain is being controlled with Tylenol. Is completely alert and oriented and is on TELLE, Rhythm is NSR in the 90's. Lungs are dim to clear and he is on Room air. He ambulates with 1 assist and a walker. He will be discharging today to rehab. All vitals were unremarkable and remained that way throughout the day. No acute changes today. . Discharge Information Functional Assessment Personal hygiene: assist. Feeding ability: self. Standing ability: with assist. Mobility assistance: ambulate, assist of 1. Chair transfer: with assist. Wheelchair: assist. Elimination: last bowel movement 05/23/2022 11:00:00, incontinent. Nutritional Assessment Appetite: good. Date and time of last meal 05/23/2022 12:00:00. Pain Assessment Level on transfer: 2. Interventions: medication, non-pharmaceutical, repositioning, rest. Acceptable pain relief: yes, no, pain reported as mild. Tylenol : last pain medication given at 05/23/2022 15:00:00. Psycho-Social Assessment Affect/behavior: cooperative. Mental status: alert. Orientation: person, place, time. Patient is aware of diagnosis. Case Management Discharge Plan : Case Management Discharge Plan Data 05/23/2022 13:34 EDT Discharge Level of Care at Discharge [facility] facility Discharge Nursing Homes/Rehab Facilities [facility] Discharge Transportation Arranged [facility] [id number] [phone] Name of Agency #1 [facility] Service Categories #1 Occupational Therapy, Physical Therapy, Residential Service Start Date and Time #1 05/23/2022 15:00 Name of Person Notified of Transfer Dtr/HCP Rehabilitation Discharge : Rehab Discharge Index 05/22/2022 14:00 EDT Walker: distance 20-50 05/19/2022 10:48 EDT Walker: distance 10-20 05/19/2022 9:32 EDT Comments on treatment indicated ADLs, funct mob, transfers, safety, pt edu Full chart review completed Yes Hospital course see comment 05/18/2022 11:11 EDT Full chart review completed Not Done: Order Discontinued (Not Done) * Kieran Medellin: PERFORM, SIGN, VERIFY Event Display: Progress Note Hospital Authored Date: Patient: RAD ACOSTA Age: 81 years Sex: Male : 1940 Associated Diagnoses: None Author: Kieran Medellin Subjective Straight cath once for urinary retention.has voided x 2 since. Pain better controlled. denies fever/chills/N/V/CP/SOB/Abd pain; +BM PT eval rec rehab Objective Vital Signs Vitals : VITALS 05/22/2022 4:00 EDT Weight 63.2 kg Weight lb/oz 139 lb 5 oz Temperature 98.0 DegF Temperature Route Oral Pulse Rate 86 bpm Respiratory Rate 18 br/min Respiratory Rate Not Done: Patient Sleeping (Not Done) Systolic Blood Pressure 105 mm Hg Diastolic Blood Pressure 52 mm Hg L Blood pressure sites Arm, right Pulse Pressure 53 mm Hg Oxygen Saturation 95 % Mode of Delivery (Oxygen) Room air Pain Intensity Not Done: Patient Sleeping (Not Done) . General: no acute distress Neuro: Pt is alert, oriented, moves x4 extremities spontaneously and to command Cardiac: RRR, tachy at times Pulm: Lungs CTA GI: Abd soft, non-tender, non-distended, Has a moderate sized abdominal hernia noted just left of midline;+BM 05/22 :voided x 2 MSK: moves x4 extremities w/o gross deformity Integ: LLE /groin with multiple incisions, jose g in tact, well-approximated wound edges, dry, no hematoma/ecchymosis/purulent discharge; all compartments soft, compressible;+edema Vasc: Left x3 faint DP,PT; L1 debridement site with clean wound base, dry; no drainage, no periwound erythema. Results Review 7 Day Results Results Laboratory : LABORATORY 05/20/2022 7:18 EDT Glucose, POC 146 mg/dL H 05/20/2022 6:58 EDT Sodium 129 mmol/L L Potassium 4.2 mmol/L Chloride 93 mmol/L L Bicarbonate Level 27 mmol/L Anion Gap 9 Glucose Level 119 mg/dL H BUN 18 mg/dL Creatinine-Blood 0.6 mg/dL L Estimated GFR Creatinine 96 ML/MIN/1.73 M2 Calcium, Ionized pH Corrected 1.16 mmol/L Phosphorus 2.8 mg/dL Magnesium 2.0 mg/dL 05/20/2022 6:57 EDT WBC 16.2 k/mm3 H RBC 2.45 m/mm3 L Hgb 7.9 Gm/dL L Hct 23.3 % L MCV 95.1 femtoliters H MCH 32.2 pg MCHC 33.9 g/dL Platelet Count 267 k/mm3 RDW-SD 48.8 femtoliters H MPV 9.3 femtoliters L Nucleated RBC (Automated) 0.0 #/100 WBC'S Abs. NRBC 0.0 k/mm3 Abs. Neut 12.4 k/mm3 H Abs. Lymph 1.7 k/mm3 Abs. Mcdonald 1.8 k/mm3 H Abs. Eo 0.1 k/mm3 Abs. Baso 0.0 k/mm3 Neut % 76.6 % H Lymph % 10.8 % L Mcdonald % 10.8 % H Eos % 0.9 % Baso % 0.2 % Imm Gran 0.7 % Abs. Imm Gran 0.1 k/mm3 Assessment Assessment RAD ACOSTA is a 81-year-old man who presented on 05/15/22 to vascular surgery clinic with nonhealing ulcers of the left great toe with gangrene and diminished pulses concerning for chronic limb threatening ischemia, subsequently transferred to [facility] to undergo planned intervention, now s/p left fem to AT bypass utilizing his left greater saphenous vein for graft also with debridement of his Left 1st toe w/ removal of left 4th toenail(05/15/22/[facility]). Extubated successfullyat end of case, however unable to wean pressors and therefore transferred to STICU for hemodynamic monitoring and pressor support. At this time, he is no longer requiring pressors, on room air, pain controlled. Has since been transferred out of STICU to M6. On 05/20, developed increased leukocytosis to 16, now ttrending down. CXR and UA were not concerning for infectious process. Hemoglobin also appears to be downtrending and is 7.5 . Has required 2 straight caths over weekend, started on Flomax,has voided x 2 , and had +BM today. KUB unremarkable, showed constipation. Still has some edema, Lasix 20 IV given; Pt rec rehab Plan: - Cardiac Diet -cont Flomax - ASA 81mg daily, statin/Atorvastatin - Ambulate as tolerated, Post-op shoe for ambulation, Heel offloading -cont PT_rec rehab - wound care: Betadine paint, DSSD, kerlix roll; leg incisions open to air; - Wound care for L1 toe debridement: apply thin layer of Solosite gel, cover with DSD, change dailyand PRN - Maintain MAP >65 - Monitor distal signals - Multimodal pain control - PT eval recommends post acute rehab - OT eval pending for discharge planning - Monitor labs and replete as needed - Dispo planning; rehab tomorrow Discussed with Dr. Woo. Vascular Surgery [id number] * Rochelle MEDELLIN, Lainey: VERIFY, PERFORM, SIGN Event Display: Progress Note Hospital Authored Date: Patient: RAD ACOSTA Age: 81 years Sex: Male : 1940 Associated Diagnoses: None Author: Rochelle MEDELLIN, Lainey Findings Problem Related to Alteration in Tissue Perfusion : Alteration in Tissue Perfusion 05/21/2022 7:00 EDT Alteration Tissue Perfusion related to Vascular Procedure Goals & Outcomes: Tissue perfusion Pt will resume/maintain adequate peripheral circulation, Pt will be hemodynamically stable Interventions: Tissue Perfusion Assess for s/s of infection of lines, drains, incisions, Assess/Monitor activity tolerance, Assess/Monitor cardiac dysrhythmias, Assess/Monitor CMS to affected extremity, Assess/Monitor mental status, Assess/Monitor peripheral pulses & capillary refill, Assess/Monitor presence & degree of edema, Assess/Monitor secretions & drainage for s/s of infection,Assess/Monitor vital signs per unit standard & prn, Discuss discharge needs with comp field case manager, Ensure case management or social service consult, Maintain precautions per Infection Control Standards, Monitor blood loss, Monitor Intake & Output, Monitor labs & report variances to provider, Monitor response to fluid replacement, Monitor size & character of hematoma, Elevate limbs, Physical assessment per unit standards, Position for comfort, Provide info on community resources for education, support, Report changes in hemodymamics to MD, Teach pt/caregiver discharge plan & follow up care, Teach pt/caregiver on plan of care, treatment, s/s & meds, Teach pt/caregiver on use of pain scale, Teach Pt/caregiver signs & symptoms of infection BH Goals/Interventions, Tissue Perfusion Yes Tissue Perfusion, Problem Start 05/19/2022 11:27 Reviewed Plan with, Tissue Perfusion Patient Patient Progression, Tissue Perfusion Pt progressing according to plan . Narrative/Incidental AAOx4. SR/ST.+2 edema to BL LE and BL UE. Endorses abdominal pain at times, abdomen soft and distended. KUB done today. Generalized pitting edema throughout BL arms and legs. Jose G intact to L leg,very weepy. Pt being turned and repositioned every 2 hrs for pressure protection. Bladder scanned as documented in CIS. No events, systems as otherwise documented.. Discharge Information Rehabilitation Discharge : Rehab Discharge Index 05/19/2022 10:48 EDT Walker: distance 10-20 05/19/2022 9:32 EDT Comments on treatment indicated ADLs, funct mob, transfers, safety, pt edu Full chart review completed Yes Hospital course see comment 05/18/2022 11:11 EDT Full chart review completed Not Done: Order Discontinued (Not Done) 05/17/2022 9:04 EDT Comments on treatment indicated 81 y/o M with non healing ulcer on Left great toe, now s/p Left vascular bypass, WBAT. PT to see for therex, bed mobility, balance, transfers and gait as able. Walker: distance < 10 Distance pt will ambulate 15 ft with ww Full chart review completed Yes Hospital course 05/15/22 - Left fem-AT bypass utilizing Left GSV graft, also with debridement of left 1st toe and removal of toenail on L4, all with Dr. Woo. Other findings Pt with multiple incisions on Left LE but able to flex to 90/90 at hip and knee after some AROM activity. Pt needed Min A for bed mobility, Mod A to stand to walker and Min A to take steps to chair. Pt reluctant to weight bear into Left LE. Rec rehab Plan of care PT Gait training, Transfer training, Therapeutic exercise, Functional Activities, Balance training XR Abdomen AP * Parmjit , CIS S: TRANSCRIJose Seals MD: VERIFY Event Display: Result: Authored Date: [id number] XR Abdomen AP INDICATION/CLINICAL QUESTION: Distention; COMPARISON: 10/15/2013. FINDINGS: Frontal view of the abdomen and pelvis, 2 radiographs labeled supine, 739 and 7:40 AM. Colon appears moderately stool-filled. Otherwise largely nonspecific bowel gas pattern. Included lung bases are clear. There is moderate to advanced degenerative osseous changes and atherosclerotic arterial changes. Surgical pelvic calcifications appear unchanged likely phleboliths. IMPRESSION: Patient appears constipated. WSN: [id number] Ordering Physician: Lyndsey eMi Dictated By: Jose Mercer MD Dictated Date/Time: 05/21/22 8:57 am Reviewed By: Jose Mercer MD Signed By: Jose Mercer MD Signed Date/Time: 05/21/22 8:57 am Transcribed By: CSSybil Transcribed Date/Time: 05/21/22 8:56 am Portable XR Chest Views * ANITASPowerrani , CIS S: TRANSCRIBE Jose Mercer MD: VERIFY Event Display: Result: Authored Date: [id number] Chest Portable Reason: Shortness of Breath; Clinical Question(s): Pulmonary Edema COMPARISON: 10/25/2015. FINDINGS: Single AP upright chest x-ray 5:37 AM. LINES AND TUBES: None. LUNGS AND PLEURA: Questionable trace left apical pneumothorax. Otherwise lungs are hyperexpanded and clear. HEART, MEDIASTINUM AND LASHELL: Heart is normal in size. Normal mediastinal and hilar contour. BONES AND SOFT TISSUES: No acute abnormality. Fairly extensive atherosclerotic carotid arterial calcifications. IMPRESSION: Questionable tiny left apical pneumothorax may be artifact. Clinical correlation recommended. COPD changes, otherwise no evidence of an acute process. A critical result message ([place]) has been communicated via the [facility] on 05/19/2022 8:03 AM, Message ID [id number]. WSN: [id number] Ordering Physician: Logan Weeks Dictated By: Jose Mercer MD Dictated Date/Time: 05/19/22 8:03 am Reviewed By: Jose Mercer MD Signed By: Jose Mercer MD Signed Date/Time: 05/19/22 8:03 am Transcribed By: GUY Transcribed Date/Time: 05/19/22 8:00 am Patient Care team information Care Team Personnel Name: Susan Kearney RN Position: [facility] RN Member Role: Primary Care Nurse Name: Lucius Lott RN Position: [facility] RN Member Role: Primary Care Nurse Name: Naheed Gardner RN Position: [facility] SN RN Member Role: Primary Care Nurse Name: Yola Redd RN Position: S RN Member Role: Primary Care Nurse Name: Allison Carney RN Position: [facility] RN Member Role: Primary Care Nurse Name: Dayanara Martinez RN Position: [facility] SN RN Member Role: Primary Care Nurse Name: Ashley Lew RN Position: [facility] RN Member Role: Primary Care Nurse Name: Juanjose Flynn MD Position: [facility] Outreach Member Role: PCP Address: Address: [address] [place] [phone] [place] Care Team Related Persons Name: WENDI JONES Address: home [address] [place] [address] Name: ODETTE ACOSTA Address: [address] [place] [address] Name: JONATHAN ACOSTA
--- OUTSIDE RECORDS SUMMARY | 2022-07-29 10:52 | XMS_ITS | Continuity of Care Document ---
Author Name Unknown Organization [facility] Address [address] [place] [id number]- Care Team Providers Care Research Investigator Name Role Phone Rina WEBBER, Juanjose Em Primary Care Physician [phone] Encounter [facility] Date(s): 05/25/22 - 06/24/22 [facility] [address] [place] [phone]- Allergies, Adverse Reactions, Alerts No Known Allergies [...] tablet, 3 Refills, Maintenance, Route to PharmacyElectronically, [id number], [facility]/pharmacy #[id number] Start Date: 06/25/18 Stop Date: 06/20/19 [...] opioid drug. Start Date: 05/23/22 Status: Ordered Problem List Condition Confirmation Course Effective Dates Status H ealth Status Informant CAD in [place] artery Confirmed Active Diabetes Confirmed Active Essential hypertension Confirmed Active Hyperlipidemia Confirmed Active Chronic pain of left knee Confirmed Active COPD, moderate Confirmed Active Social History Social History Type Response Smoking Status Former smoker; Tobac co user in household: No; Other: pt states he quit 15 yrs ago; entered on: 05/09/16 Sex Patient Care team information Care Team Personnel Name: Susan Kearney RN Position: [facility] RN Member Role: Primary Care Nurse Name: Lucius Lott RN Position: [facility] RN Member Role: Primary Care Nurse Name: Naheed Gardner RN Position: [facility] RN Member Role: Primary Care Nurse Name: Tramaine MEDELLIN, May Position: S RN Member Role: Primary Care Nurse Name: Allison Carney RN Position: [facility] RN Member Role: Primary Care Nurse Name: Dayanara Martinez RN Position: [facility] SN RN Member Role: Primary Care Nurse Name: Ashley Lew RN Position: [facility] RN Member Role: Primary Care Nurse Name: Juanjose Flynn MD Position: [facility] Outreach Member Role: PCP Address: Address: [address] [place] [id number] [place] Care Team Related Persons Name: JEWELL ALVARAOD Address: [address] [place] [address] Name: ODETTE ACOSTA Address: [address] [place] [address] Name: JONATHAN ACOSTA
--- OUTSIDE RECORDS SUMMARY | 2022-07-29 10:52 | XMS_ITS | Continuity of Care Document ---
Author Name Unknown Organization [facility] Address [address] [place] [id number]- Care Team Providers Care Faculty Administrator Name Role Phone Juanjose Flynn MD Primary Care Physician Encounter [facility] Date(s): 04/26/22 - 06/15/22 [facility] [address] [place] [phone]- Referring Physician: Juanjose Flynn MD Allergies, Adverse Reactions, Alerts No Known Allergies [...] tablet, 3 Refills, Maintenance, Route to PharmacyElectronically, [id number], [facility]/pharmacy #[id number] Start Date: 06/25/18 Stop Date: 06/20/19 [...] Status H ealth Status Informant CAD in [place] artery Confirmed Active Diabetes Confirmed Active Essential [...] Team Personnel Name: Susan Kearney RN Position: [facility] RN Member Role: Primary Care Nurse Name: Lucius Lott RN Position: [facility] RN Member Role: Primary Care Nurse Name: Naheed Gardner RN Position: [facility] RN Member Role: Primary Care Nurse Name: Tramaine MEDELLIN, May Position: S RN Member Role: Primary Care Nurse Name: Allison Carney RN Position: [facility] RN Member Role: Primary Care Nurse Name: Dayanara Martinez RN Position: [facility] SN RN Member Role: Primary Care Nurse Name: Ashley Lew RN Position: [facility] RN Member Role: Primary Care Nurse Name: Juanjose Flynn MD Position: [facility] Outreach Member Role: PCP Address: Address: [address] [place] [id number]- Care Team Related Persons Name: JEWELL ALVARADO Address: home [address] [place] [address] Name: ODETTE ACOSTA Address: [address] [place], [place] [address] Name: JONATHAN ACOSTA
--- OUTSIDE RECORDS SUMMARY | 2022-07-29 10:52 | XMS_ITS | Continuity of Care Document ---
Author Name Unknown Organization [facility] Address [address] [place] [address]- Care Team Providers Care Military Pay Technician Name Role Phone Rina WEBBER, Juanjose Em Primary Care Physician Encounter [facility] Date(s): 06/19/22 - 07/21/22 [facility] [address] [place] [address] Allergies, Adverse Reactions, Alerts No Known Allergies [...] tablet, 3 Refills, Maintenance, Route to PharmacyElectronically, [id number], [facility]/pharmacy #[id number] Start Date: 06/25/18 Stop Date: 06/20/19 Status: Ordered Augmentin 875 mg-125 mg oral tablet 1 tablet, By Mouth, Every 12 hours, for 14 days, # 28 tablet, 0 Refills, Acute 07/29/22 10:44:00 EDT, 07/15/22 10:44:00 EDT, Tablet, [facility]/pharmacy #[id number], Partial fill upon patient request if the prescription is for a schedule II opioid drug., 165, cm,... Start Date: 07/15/22 Stop Date: 07/29/22 Status: Ordered bisoprolol 5 mg oral tablet [...] Status H ealth Status Informant CAD in [place] artery Confirmed Active Diabetes Confirmed Active Essential hypertension Confirmed Active Hyperlipidemia Confirmed Active Chronic pain of left knee Confirmed Active COPD, moderate Confirmed Active Social History Social History Type Response Smoking Status Former smoker; Tobac co user in household: No; Other: pt states he quit 15 yrs ago; entered on: 3/21/17 Sex Patient Care team information Care Team Personnel Name: Susan Kearney RN Position: [facility] RN Member Role: Primary Care Nurse Name: Lucius Lott RN Position: [facility] RN Member Role: Primary Care Nurse Name: Naheed Gardner RN Position: [facility] SN RN Member Role: Primary Care Nurse Name: Yola Redd RN Position: [facility] RN Member Role: Primary Care Nurse Name: Allison Carney RN Position: [facility] RN Member Role: Primary Care Nurse Name: Dayanara Martinez RN Position: [facility] SN RN Member Role: Primary Care Nurse Name: Ashley Lew RN Position: [facility] RN Member Role: Primary Care Nurse Name: Juanjose Flynn MD Position: [facility] Outreach Member Role: PCP Address: Address: [address] [place] [address]- Care Team Related Persons Name: JENNYJEWELL Address: home [address] [place] [address] Name: ODETTE ACOSTA Address: home [address] [place] [address] Name: JONATHAN ACOSTA
--- OUTSIDE RECORDS SUMMARY | 2022-07-29 10:52 | XMS_ITS | Continuity of Care Document ---
Author Name Unknown Organization [facility] Address [address] [place] [address]- Care Team Providers Care Pre Owned Sales Consultant Name Role Phone Rina WEBBER, Juanjose Em Primary Care Physician [phone] Encounter [facility] Date(s): 04/24/22 - 05/24/22 [facility] [address] [place] [address]- Allergies, Adverse Reactions, Alerts No Known Allergies [...] tablet, 3 Refills, Maintenance, Route to PharmacyElectronically, [id number], [facility]/pharmacy #[id number] Start Date: 06/25/18 Stop Date: [...] Status H ealth Status Informant CAD in [place] artery Confirmed Active Diabetes Confirmed Active Essential [...] Team Personnel Name: Susan Kearney RN Position: [facility] RN Member Role: Primary Care Nurse Name: Lucius Lott RN Position: [facility] RN Member Role: Primary Care Nurse Name: Naheed Gardner RN Position: [facility] RN Member Role: Primary Care Nurse Name: Tramaine MEDELLIN, May Position: S RN Member Role: Primary Care Nurse Name: Allison Carney RN Position: [facility] RN Member Role: Primary Care Nurse Name: Dayanara Martinez RN Position: [facility] SN RN Member Role: Primary Care Nurse Name: Ashley Lew RN Position: [facility] RN Member Role: Primary Care Nurse Name: Juanjose Flynn MD Position: [facility] Outreach Member Role: PCP Address: Address: [address] [place] [address]- [place] Care Team Related Persons Name: JENNYJEWELL MERRITT Address: home [address] [place] [address] Name: ODETTE ACOSTA Address: home [address] [place] [address] Name: JONATHAN ACOSTA
--- OUTSIDE RECORDS SUMMARY | 2022-07-29 10:53 | XMS_ITS | Patient Health Record ---
Author Name Unknown Organization [facility] Care Team Providers Care Supervisor Laboratory Animal Facility Name Role Phone Nydia Burden Unavailable [phone] Terrie Kirkpatrick Unavailable [phone] Cody Stone Unavailable [phone] PROBLEMS Type Condition ICD9-CM Code AKH08-EA Code Onset Dates Condition Status W/U Status Risk SNOMED Code Notes Problem Other hammer toe(s) (acquired), left foot M20.42 confirmed [id number] Problem Type 2 diabetes mellitus with diabetic peripheral angiopathy without gangrene E11.51 confirmed [id number] Problem Other hammer toe(s) (acquired), right foot M20.41 confirmed [id number] [id number] Problem 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 confirmed [id number] Problem 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 [address] [place] [address] June, Nydia Burden [facility] [place] [address] [address] Mar, Nydia Perica [facility] [address] Mar, Nydia Perica [facility] [address] Mar, [facility] [address] Mar, 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 ; Cellulitis of right foot L03.115 ; Type 2 diabetes mellitus with diabetic peripheral angiopathy without gangrene E11.51 ; Atherosclerosis of artery of both lower extremities I70.203 ; Non-pressure ulcer of left lower extremity, limited to breakdown of skin L97.921 and Non-pressure ulcer of right lower extremity, limited to breakdown of skin L97.[address] [address] Mar, Nydia [address] [address] Feb, Cody Stone [address] [address] Jan, Cody Stone Type 2 diabetes mellitus with diabetic peripheral angiopathy without gangrene E11.51 ; Plantar wart B07.0 ; Tinea unguium B35.1 ; Pain in right toe(s) M79.674 ; Pain in left toe(s) M79.675 ; Pain in right foot M79.671 ; Cutaneous abscess of left foot L02.612 and Cellulitis of left lower limb L03.[address] [address] Dec, Cody [facility] [address] [facility] [address] [place] [address] Nov, [address] [address] 16 Sep, 2021 Cody Stone Type 2 diabetes mellitus with diabetic peripheral angiopathy without gangrene E11.51 ; Plantar wart B07.0 ; Tinea unguium B35.1 ; Pain in right toe(s) M79.674 ; Pain in left toe(s) M79.675 ; Pain in right foot M79.671 ; Other hammer toe(s) (acquired), right foot M20.41 and Other hammer toe(s) (acquired), left foot M20.[address] [address] June, Cody Stone Type 2 diabetes mellitus with diabetic peripheral angiopathy without gangrene E11.51 ; Plantar wart B07.0 ; Tinea unguium B35.1 ; Pain in right toe(s) M79.674 ; Pain in left toe(s) M79.675 ; Pain in right foot M79.671 ; Other hammer toe(s) (acquired), right foot M20.41 ; Other hammer toe(s) (acquired), left foot M20.42 and Ingrowing nail L60.[address] [address] 09 Apr, 2021 [facility] [address] 08 Apr, 2021 Cody Stone Type 2 diabetes mellitus with diabetic peripheral angiopathy without gangrene E11.51 ; Plantar wart B07.0 ; Tinea unguium B35.1 ; Pain in right toe(s) M79.674 ; Pain in left toe(s) M79.675 ; Pain in right foot M79.671 ; Other hammer toe(s) (acquired), right foot M20.41 and Other hammer toe(s) (acquired), left foot M20.[address] [address] Jan, Cody Stone Type 2 diabetes mellitus with diabetic peripheral angiopathy without gangrene E11.51 ; Plantar wart B07.0 ; Tinea unguium B35.1 ; Pain in right toe(s) M79.674 ; Pain in left toe(s) M79.675 ; Pain in right foot M79.671 and Xerosis cutis L85.[address] [address] [facility] [address] [address] Oct, Cody Stone Type 2 diabetes mellitus with diabetic peripheral angiopathy without gangrene E11.51 ; Plantar wart B07.0 ; Tinea unguium B35.1 ; Pain in right toe(s) M79.674 ; Pain in left toe(s) M79.675 ; Other hammer toe(s) (acquired), right foot M20.41 ; Other hammer toe(s) (acquired), left foot M20.42 ; Pain in right foot M79.671 and Xerosis cutis L85.[address] [address] Aug, Cody Stone Type 2 diabetes mellitus with diabetic peripheral angiopathy without gangrene E11.51 ; Tinea unguium B35.1 ; Pain in right toe(s) M79.674 ; Pain in left toe(s) M79.675 ; Other hammer toe(s) (acquired), left foot M20.42 and Other hammer toe(s) (acquired), right foot M20.41 IMMUNIZATIONS Vaccine Route Administration Date Status COVID-19 Moderna Vaccine Unknown Dec 20, 2020 Adm inistered Influenza Unknown Nov 16, 2020 Refused SOCIAL HISTORY Tobacco Use: Social History Observation Description Date Details (start date - stop date) Former Smoker 08/03/1990 Sex Assigned At : Social History Observation Description Sex Assigned At Unknown Alcohol Screen Question Answer Notes Did you have a drink contain ing alcohol in the past year? Yes Points 1 Interpretation Negative How often did you have a dri nk containing alcohol in the past year? Monthly or less (1 point) Tobacco Use/Smoking Question Answer Notes Are you a: former smoker Additional Findings: Tobacco Non-User Ex-cigaret te smoker When did you stop smoking? 08/03/1990 Tobacco use other than smoking: Question Answer Notes Are you an other tobacco user? No REASON FOR REFERRAL No Information VITAL SIGNS from 1942 to 2022-07-29 Height 5 ft 5 in in Mar, Weight 123 lbs Mar, BMI 20.47 kg/m2 Mar, Blood pressure systolic 120 mm Hg Jan, Blood pressure diastolic 80 mm Hg Jan, MEDICATIONS Medication SIG (Take, Route, Frequency, Duration) Notes Start Date End Date Status Keflex 500 MG 1 capsule Orally every 12 hrs for 10 day(s) Mar, Active Spiriva Respimat 2 puffs once per day Active Cephalexin 500 MG 1 capsule Orally every 12 hrs for 10 day(s) Not-Taking oxyCODONE HCl 10 MG (Schedule II Drug) Oral for 28 Active Extra Depth Orthopedic Shoes (1 Pair) with Customized Heat Molded Multidensity Innersoles (3 Pair) as directed Dx: NIDDM/PVD (E11.59), Hammertoe Foot Deformity (M20.41,M20.42), Preulcerative Skin Lesion(s) (L85.1) Active Mupirocin 2 % 1 application Externally Once or Twice a day for 30 days Mar, Active Ammonium Lactate 12 % 1 application to affected area Externally to feet Twice a day for 30 days Active Atorvastatin Calcium 80 MG Oral for 90 Active Insulin novalog / lantus 16 units daily Active Albuterol Sulfate 1 puff as needed Active Famotidine 20 MG Oral for 90 A ctive Lactulose 10 GM/15ML Oral for 90 Active Bisoprolol Fumarate 5 MG Oral for 90 Active RESULTS from 1942 to 2022-07-29 Component Value Reference Range Notes HEMOGLOBIN A1C (GLYCOHEMOGLO BIN) Reviewed date:04/05/2022 13:40:27 Interpretation: Performing Lab: Notes/Report: TOTAL HEMOGLOBIN (HGBA1C) HEMOGLOBIN A1C (HH) 6.9 HEMOGLOBIN A1C % (HH) ESTIMATED AVG GLUCOSE REASON FOR VISIT No Information MEDICAL (GENERAL) HISTORY Type Description Date Medical History Measles Medical History Mumps Medical History Chicken pox Medical History Joint implants/screws Medical History type II diabetes Medical History COPD Surgical History spinal stenosis surgery 1994 Surgical History Broken/Fracture Leg 2017 MENTAL STATUS No Information ASSESSMENTS Encounter Date Diagnosis Assessment Notes Treatment Notes Treatment Clinical Notes Mar, Cellulitis of right foot (ICD-10 - L03.115) Mar, Non-pressure 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 (ICD9-CM - L97.412) Mar, Type 2 diabetes mellitus with diabetic peripheral angiopathy without gangrene (ICD-10 - E11.51) Mar, Atherosclerosis of artery of both lower extremities (ICD-10 - I70.203) Mar, Non-pressure ulcer o f left lower extremity, limited to breakdown of skin (ICD-10 - L97.921) Mar, Non-pressure ulcer o f right lower extremity, limited to breakdown of skin (ICD-10 - L97.911) Jan, Type 2 diabetes mellitus with diabetic peripheral angiopathy without gangrene (ICD-10 - E11.51) Jan, Plantar wart (ICD-10 - B07.0) Jan, Tinea unguium (ICD-1 0 - B35.1) Jan, Pain in right toe(s) (ICD-10 - M79.674) Jan, Pain in left toe(s) (ICD-10 - M79.675) Jan, Pain in right foot (ICD-10 - M79.671) Jan, Cutaneous abscess of left foot (ICD-10 - L02.612) Jan, Cellulitis of left lower limb (ICD-10 - L03.116) Sep, Plantar wart (ICD-10 - B07.0) Sep, Type 2 diabetes mellitus with diabetic peripheral angiopathy without gangrene (ICD-10 - E11.51) Sep, Tinea unguium (ICD-1 0 - B35.1) 16 Sep, 2021 Pain in right toe(s) (ICD-10 - M79.674) Sep, Pain in left toe(s) (ICD-10 - M79.675) Sep, Pain in right foot (ICD-10 - M79.671) Sep, Other hammer toe(s) (acquired), right foot (ICD-10 - M20.41) Sep, Other hammer toe(s) (acquired), left foot (ICD-10 - M20.42) June, Type 2 diabetes mellitus with diabetic peripheral angiopathy without gangrene (ICD-10 - E11.51) June, Plantar wart (ICD-10 - B07.0) June, Tinea unguium (ICD-1 0 - B35.1) June, Pain in right toe(s) (ICD-10 - M79.674) June, Pain in left toe(s) (ICD-10 - M79.675) June, Pain in right foot (ICD-10 - M79.671) June, Other hammer toe(s) (acquired), right foot (ICD-10 - M20.41) Patient Educated with: DIABETIC FOOT CARE INSTRUCTIONS.pdf (DIABETIC FOOT CARE INSTRUCTIONS.pdf ) June, Other hammer toe(s) (acquired), left foot (ICD-10 - M20.42) June, Ingrowing nail (ICD- 10 - L60.0) Apr, Type 2 diabetes mellitus with diabetic peripheral angiopathy without gangrene (ICD-10 - E11.51) Apr, Plantar wart (ICD-10 - B07.0) Apr, Tinea unguium (ICD-1 0 - B35.1) Apr, Pain in right toe(s) (ICD-10 - M79.674) Apr, Pain in left toe(s) (ICD-10 - M79.675) Apr, Pain in right foot (ICD-10 - M79.671) Apr, Other hammer toe(s) (acquired), right foot (ICD-10 - M20.41) Patient Educated with: DIABETIC FOOT CARE INSTRUCTIONS.pdf (DIABETIC FOOT CARE INSTRUCTIONS.pdf ) Apr, Other hammer toe(s) (acquired), left foot (ICD-10 - M20.42) Jan, Plantar wart (ICD-10 - B07.0) Jan, Type 2 diabetes mellitus with diabetic peripheral angiopathy without gangrene (ICD-10 - E11.51) Jan, Tinea unguium (ICD-1 0 - B35.1) Jan, Pain in right toe(s) (ICD-10 - M79.674) Jan, Pain in left toe(s) (ICD-10 - M79.675) Jan, Pain in right foot (ICD-10 - M79.671) Jan, Xerosis cutis (ICD-1 0 - L85.3) Oct, Plantar wart (ICD-10 - B07.0) Oct, Type 2 diabetes mellitus with diabetic peripheral angiopathy without gangrene (ICD-10 - E11.51) Oct, Tinea unguium (ICD-1 0 - B35.1) Oct, Pain in right toe(s) (ICD-10 - M79.674) Oct, Pain in left toe(s) (ICD-10 - M79.675) Oct, Other hammer toe(s) (acquired), right foot (ICD-10 - M20.41) Oct, Other hammer toe(s) (acquired), left foot (ICD-10 - M20.42) Oct, Pain in right foot (ICD-10 - M79.671) Oct, Xerosis cutis (ICD-1 0 - L85.3) Aug, Type 2 diabetes mellitus with diabetic peripheral angiopathy without gangrene (ICD-10 - E11.51) Aug, Tinea unguium (ICD-1 0 - B35.1) Aug, Pain in right toe(s) (ICD-10 - M79.674) Aug, Pain in left toe(s) (ICD-10 - M79.675) Aug, Other hammer toe(s) (acquired), left foot (ICD-10 - M20.42) Aug, Other hammer toe(s) (acquired), right foot (ICD-10 - M20.41) Patient Educated with: DIABETIC FOOT CARE INSTRUCTIONS.pdf (DIABETIC FOOT CARE INSTRUCTIONS.pdf ) PLAN OF TREATMENT Treatment Notes Assessment Notes Clinical Notes Other hammer toe(s) (acquire d), right foot Patient Educated with: DIABETIC FOOT CARE INSTRUCTIONS.pdf (DIABETIC FOOT CARE INSTRUCTIONS.pdf) Other hammer toe(s) (acquire d), right foot Patient Educated with: DIABETIC FOOT CARE INSTRUCTIONS.pdf (DIABETIC FOOT CARE INSTRUCTIONS.pdf) Other hammer toe(s) (acquire d), right foot Patient Educated with: DIABETIC FOOT CARE INSTRUCTIONS.pdf (DIABETIC FOOT CARE INSTRUCTIONS.pdf) Pending Tests Test Name Order Date [id number]-PKVAULF NAIL, 6 OR MORE 2022-01-20 77402-Pzlp Destruction, -2022-01-20 31086 I&D ABSCESS- SIMPLE,SINGLE 2022-01 48189-PKVD SKIN LESIONS, OVER 4 11831-NOALSPY NAIL, 6 OR MORE 2021-10-04 06859-Dybt Destruction, -2021-10-04 16773-XIQF SKIN LESIONS, OVER 4 83014-IDQSFYV NAIL, 6 OR MORE 2021-07-01 09924-Ubdd Destruction, -2021-07-01 35798-Uknuenki Plate 2021-07-01 06335-ZJZL SKIN LESIONS, OVER 4 82338-DMUCEEB NAIL, 6 OR MORE 2021-04-26 83986-Reuj Destruction, -2021-04-26 54049-ZFBB SKIN LESIONS, OVER 4 74975-RFXFFEP NAIL, 6 OR MORE 2021-01-25 02722-Dldw Destruction, -2021-01-25 36403-UIGB SKIN LESIONS, OVER 4 42286-MQQNYTV NAIL, 6 OR MORE 2020-11-16 24654-Wxhd Destruction, 1-2020-11-16 05820-TTOK SKIN LESIONS, OVER 4 24277-XQBE SKIN LESIONS, 2 TO Insurance Providers Payer Name Payer Address Payer Phone Insured Name Patient Relationship to Insured Coverage Start Date Coverage End Date Subscriber Number Group Number [employer] [place] [employer] [address] [facility] [address] Gustavo Ashton Self - patient is the insured [id number]
--- OUTSIDE RECORDS SUMMARY | 2022-07-29 10:53 | XMS_ITS | Continuity of Care Document ---
Author Name Unknown Organization [facility] Address [address] [place] [address]- Care Team Providers Care Tassel Snipper Name Role Phone Rina WEBBER, Juanjose Em Primary Care Physician [place] [facility] [place]05[place]22 - 06/04/22 [facility] [address] [place] [address]- Allergies, Adverse Reactions, Alerts No Known Allergies [...] tablet, 3 Refills, Maintenance, Route to PharmacyElectronically, [id number], [facility]/pharmacy #1230 Start Date: 06/25/18 Stop Date: 06/20/19 [...] Status H ealth Status Informant CAD in [place] artery Confirmed Active Diabetes Confirmed Active Essential [...] Team Personnel Name: Susan Kearney RN Position: [facility] RN Member Role: Primary Care Nurse Name: Lucius Lott RN Position: [facility] RN Member Role: Primary Care Nurse Name: Naheed Gardner RN Position: [facility] RN Member Role: Primary Care Nurse Name: Tramaine MEDELLIN, May Position: S RN Member Role: Primary Care Nurse Name: Allison Carney RN Position: [facility] RN Member Role: Primary Care Nurse Name: Dayanara Martinez RN Position: [facility] SN RN Member Role: Primary Care Nurse Name: Ashley Lew RN Position: [facility] RN Member Role: Primary Care Nurse Name: Juanjose Flynn MD Position: [facility] Outreach Member Role: PCP Address: Address: [address] [place] [address]- [place] Care Team Related Persons Name: JEWELL ALVARADO Address: home [address] [place] [address] Name: ODETTE ACOSTA Address: home [address] [place] [address] Name: JONATHAN ACOSTA
--- OUTSIDE RECORDS SUMMARY | 2022-07-29 10:53 | XMS_ITS | Continuity of Care Document ---
Author Name Unknown Organization [facility] Address [address] [place] [address]- Care Team Providers Care Superintendent Gas Distribution Name Role Phone Rina WEBBER, Juanjose Em Primary Care Physician [phone] Encounter [facility] Date(s): 11/05/19 - 12/05/19 [facility] [address] [place] [address]- [facility] Allergies, Adverse Reactions, Alerts Substance Reaction Severity Status NKA Active Immunizations Given and Recorded Vaccine Date Status Refusal Reason pneumococcal 13-valent vaccine 05/25/15 Recorded Zoster Vaccine [...] tablet, 3 Refills, Maintenance, Route to PharmacyElectronically, [id number], [facility]/pharmacy #[id number] Start Date: 06/25/18 Stop Date: 06/20/19 Status: [...] 09/17/15 12:58:56 Start Date: 09/17/15 Status: Ordered lactulose 10 gm/15 ml oral syrup 15 mL = 10 Gm, By Mouth, Daily, PRN as needed for constipation, # 480 mL, 0 Refills, Maintenance, 09/17/15 13:03:57, Syrup Start Date: 09/17/15 Status: Ordered lactulose 10 gm/15 ml oral syrup 15 mL = 10 Gm, By Mouth, Daily, PRN as needed for constipation, # 450 mL, 3 Refills, Maintenance, 11/29/15 9:46:32, Syrup, 15 mL By Mouth Daily,x30 days,PRN:as needed for constipation Start Date: 11/29/15 Stop Date: 03/28/16 Status: Ordered Lantus Solostar Pen 100 units/mL subcutaneous solution Subcutaneous Infusion, 12 units, 0 Refills, Maintenance, 09/17/15 13:01:02 Start Date: 09/17/15 Status: Ordered levalbuterol 1.25 mg/0.5 mL inhalation solution 0.5 mL = 1.25 mg, Neb, 3 times a day, PRN for wheezing, # 30 each, 0 Refills, Maintenance, 10/25/1615:38:35, Solution Start Date: 10/25/15 Status: Ordered NovoLOG FlexPen 100 units/mL subcutaneous [...] 12:59:43, Aerosol Start Date: 09/17/15 Status: Ordered Problem List Condition Effective Dates Status Health Status Inform ant Diabetes(Confirmed) Active Essential hypertension(Confirmed) Active Hyperlipidemia(Confirmed) Active Chronic pain of left knee(Confirmed) Active COPD, moderate(Confirmed) Active Social History Social History Type Response Smoking Status Former smoker; Tobac co user in household: No; Other: pt states he quit 15 yrs ago; entered on: 05/09/16 Sex
--- OUTSIDE RECORDS SUMMARY | 2022-07-29 10:53 | XMS_ITS | Continuity of Care Document ---
Author Name Unknown Organization [facility] Address [address] [place] [address]- Care Team Providers Care Meringuer Name Role Phone Rina WEBBER, Juanjose Em Primary Care Physician Encounter [facility] Date(s): 05/03/22 - 06/02/22 [facility] [address] [place] [address]- Allergies, Adverse Reactions, Alerts No Known Allergies [...] tablet, 3 Refills, Maintenance, Route to PharmacyElectronically, [id number], [facility]/pharmacy #1230 Start Date: 06/25/18 Stop Date: [...] Status H ealth Status Informant CAD in [place] artery Confirmed Active Diabetes Confirmed Active Essential [...] RN Position: [facility] RN Member Role: Primary Care Nurse Name: Lucius Lott RN Position: [facility] RN Member Role: Primary Care Nurse Name: Naheed Gardner RN Position: [facility] RN Member Role: Primary Care Nurse Name: Tramaine MEDELLIN, May Position: S RN Member Role: Primary Care Nurse Name: Allison Carney RN Position: [facility] RN Member Role: Primary Care Nurse Name: Dayanara Martinez RN Position: [facility] SN RN Member Role: Primary Care Nurse Name: Ashley Lew RN Position: [facility] RN Member Role: Primary Care Nurse Name: Juanjose Flynn MD Position: [facility] Outreach Member Role: PCP Address: Address: [address] [place] [address]- [place] Care Team Related Persons Name: JEWELL ALVARADO Address: home [address] [place] [address] Name: ODETTE ACOSTA Address: [address] [place] [address] Name: JONATHAN ACOSTA
--- OUTSIDE RECORDS SUMMARY | 2022-07-29 10:53 | XMS_ITS | Continuity of Care Document ---
Author Name Unknown Organization [facility] Address [address] [place] [address]- Care Team Providers Care Production Operations Inspector Name Role Phone Rina WEBBER, Juanjose Em Primary Care Physician En[place] [facility] Date(s): 04/20/22 - 04/27/22 [facility] [address] [place], [place] [address] Referring Physician: Nydia Burden DPM Allergies, Adverse Reactions, Alerts No Known Allergies [...] tablet, 3 Refills, Maintenance, Route to PharmacyElectronically, [id number], [facility]/pharmacy #[id number] Start Date: 06/25/18 Stop Date: 06/20/19 Status: [...] Date: 09/17/15 Status: Ordered Problem List Condition Confirmation Course Effective Dates Status H ealth Status Informant CAD in [place] artery Confirmed Active Diabetes Confirmed Active Essential hypertension Confirmed Active Hyperlipidemia Confirmed Active Chronic pain of left knee Confirmed Active COPD, moderate Confirmed Active Vital Signs Most recent to oldest [Reference Range]: 1 Height 165 cm (04/20/22 2:18 PM) Weight 55.34 kg (04/20/22 2:18 PM) Oxygen Saturation [94-100 %] 98 % (04/20/22 2:18 PM) Pulse Rate [55-90 bpm] 81 bpm (04/20/22 2:18 PM) Body Mass Index [18.5-24.99 kg/m2] 20.33 kg/m2 (04/20/22 2:18 PM) Blood Pressure [90-138/55-84 mm Hg] 130/ 70mm Hg (04/20/22 2:18 PM) Mode of Delivery (Oxygen) Room air (04/20/22 2:18 PM) Blood pressure sites Arm, left (04/20/22 2:18 PM) Weight Obtained Via Patient/family state d (04/20/22 2:18 PM) Social History Social History Type Response Smoking Status Former smoker; Tobac co user in household: No; Other: pt states he quit 15 yrs ago; entered on: 05/09/16 Sex Note * Alondra Hernandez: PERFORM, SIGN, VERIFY Event Display: Patient Education/Instruction Authored Date: [id number] [facility] *BVS [address] Clinical Summary Name RAD ACOSTA Age 81 Years 1940 PCP Rina WEBBER , Juanjose Em PCP Visit Date 04/20/2022 14:11:00 Additional Instructions: Scheduled Appointments?? Future Appointments ?No Future Appointments Scheduled Follow-Up Instructions ?? Diagnosis Medications: Please continue your medications until treatment is completed or stopped by your provider. Discuss any questions related to medications with your provider. Medications to Continue with No Changes These medications were not printed or sent to your pharmacy Albuterol (albuterol 90 mcg/inh inhalation powder) 2 puff(s) Inhalation every 4 hours as needed. Next Dose: Aspirin (aspirin 81 mg oral tablet) 1 tab(s) Oral Daily. Next Dose: Atorvastatin (atorvastatin 80 mg oral tablet) 1 tab(s) Oral Daily at supper for 90 Days. Refills: 3. Next Dose: Bisoprolol (bisoprolol 5 mg oral tablet) 1 tab(s) Oral Daily. Refills: 5. Next Dose: Budesonide-Formoterol (Symbicort 160mcg/4.5mcg Inhaler) 2 puff(s) Inhalation twice a day. Next Dose: Famotidine (famotidine 20 mg oral tablet) 1 tab(s) Oral twice a day. Next Dose: Insulin Aspart (NovoLOG FlexPen 100 units/mL subcutaneous solution) Subcutaneous Infusion 3 times aday before meals. Next Dose: Insulin Glargine (Lantus Solostar Pen 100 units/mL subcutaneous solution) Subcutaneous Infusion. 12units. Next Dose: Lactulose (lactulose 10 gm/15 ml oral syrup) 15 Milliliter Oral Daily as needed as needed for constipation for 30 Days. Refills: 3. Next Dose: Levalbuterol (levalbuterol 1.25 mg/0.5 mL inhalation solution) 0.5 Milliliter Nebulized inhalation 3 times a day as needed for wheezing. Next Dose: Multivitamin With Minerals (Centrum Silver Men's) 1 tab(s) Oral Daily. Next Dose: Oxycodone (oxyCODONE 10 mg oral tablet) 2 tab(s) Oral every 6 hours as needed as needed for pain. Next Dose: Tiotropium (Spiriva HandiHaler 18 mcg Inhalation Capsule) 18 Microgram Inhalation Daily. Next Dose: Allergy Info:?? NKA Medications Given This Visit Future Orders ?No future orders Vital Signs Height 165 cm Weight 55.34 kg BMI 20.33 kg/m2 Blood Pressure 130 mm Hg/70 mm Hg Temperature Pulse Rate 81 bpm Respiratory Rate 02 Sat Mode of Delivery 98 %/Room air You can now view a summary of your hospital visit from the comfort of your home through a free online portal called [employer]. [employer] is a website that allows you to securely view your medical information including discharge summary, medications and follow-up visits. ??You can alsosend a secure electronic message to your doctor???s office to request appointments, renew medications or just ask a question. You can enroll at [email or web address] or register during your next office visit. Disclaimer:?? The information provided is of a general nature and is intended to be used in conjunction with the recommendations and advice of your health care practitioner. ??Every effort has been made to ensure that the information provided is accurate and complete at the time it is provided to you however, as your needs change, or, as new ??information becomes available, different or additional instructions may be required. If you have questions, please consult with your primary care provider or pharmacist, as appropriate. ??This information is not intended to serve as substitution for assessment and evaluation by a qualified health care provider. If you do not have a primary care provider, you may find a [facility] provider by calling [facility] at [phone]. For information about the plan of care including goals and instructions for your diagnosis, please see the patient education orders section of this document. Patient Education Materials?? The content of this educational material or handout may have been modified, supplemented, or adapted from its original content and format to support your individualized medical care. Patient Care team information Care Team Personnel Name: Susan Kearney RN Position: [facility] RN Member Role: Primary Care Nurse Name: Lucius Lott RN Position: [facility] RN Member Role: Primary Care Nurse Name: Naheed Gardner RN Position: [facility] RN Member Role: Primary Care Nurse Name: Allison Carney RN Position: [facility] RN Member Role: Primary Care Nurse Name: Dayanara Martinez RN Position: [facility] RN Member Role: Primary Care Nurse Name: Juanjose Flynn MD Position: [facility] Outreach Member Role: PCP Address: Address: [address] [place] [address]- Care Team Related Persons Name: JEWELL ALVARADO Address: [address] [place] [address] Name: ODETTE ACOSTA Address: [address] [place] [address] Name: JONATHAN ACOSTA
--- OUTSIDE RECORDS SUMMARY | 2022-07-29 10:53 | XMS_ITS | Continuity of Care Document ---
Author Name Unknown Organization [facility] Address [address] [place] [address]- Care Team Providers Care Training Director Name Role Phone Rina WEBBER, Juanjose Em Primary Care Physician [phone] [place] [facility] 11/02/20 - 12/03/20 [facility] [address] [place] [address]- Attending Physician: Ar Levin MD Allergies, Adverse Reactions, Alerts Substance Reaction Severity [...] tablet, 3 Refills, Maintenance, Route to PharmacyElectronically, [id number], [facility]/pharmacy #[id number] Start Date: 06/25/18 Stop Date: 06/20/19 Status: [...]
--- OUTSIDE RECORDS SUMMARY | 2022-07-29 10:53 | XMS_ITS | Continuity of Care Document ---
Author Name Unknown Organization [facility] Address [address] [place] [address]- Care Team Providers Care Rodding Machine Tender Name Role Phone Rina WEBBER, Juanjose Em Primary Care Physician [phone] Encounter [facility] Date(s): 05/01/22 - 05/31/22 [facility] [address] [place] [address]- Allergies, Adverse Reactions, Alerts No Known Allergies [...] tablet, 3 Refills, Maintenance, Route to PharmacyElectronically, [id number], [facility]/pharmacy #1230 Start Date: 06/25/18 Stop [...] Status H ealth Status Informant CAD in [place] artery Confirmed Active Diabetes Confirmed Active Essential [...] Team Personnel Name: Susan Kearney RN Position: [facility] RN Member Role: Primary Care Nurse Name: Lucius Lott RN Position: [facility] RN Member Role: Primary Care Nurse Name: Naheed Gardner RN Position: [facility] RN Member Role: Primary Care Nurse Name: Tramaine MEDELLIN, May Position: S RN Member Role: Primary Care Nurse Name: Allison Carney RN Position: [facility] RN Member Role: Primary Care Nurse Name: Dayanara Martinez RN Position: [facility] SN RN Member Role: Primary Care Nurse Name: Ashley Lew RN Position: [facility] RN Member Role: Primary Care Nurse Name: Juanjose Flynn MD Position: [facility] Outreach Member Role: PCP Address: Address: [address] [place] [address]- [place] Care Team Related Persons Name: JENNYJEWELL MERRITT Address: home [address] [place] [address] Name: ODETTE ACOSTA Address: [address] [place] [address] Name: JONATHAN ACOSTA
--- OUTSIDE RECORDS SUMMARY | 2022-07-29 10:53 | XMS_ITS | Continuity of Care Document ---
Author Name Unknown Organization [facility] Address [address] [place] [address]- Care Team Providers Care Molecular Genetic Pathologist Name Role Phone Juanjose Flynn MD Primary Care Physician Encounter [facility] Date(s): 05/05/22 - 06/09/22 [facility] [address] [place] [address]- Referring Physician: Juanjose Flynn MD Allergies, Adverse [...] tablet, 3 Refills, Maintenance, Route to PharmacyElectronically, [id number], [facility]/pharmacy #1230 Start Date: 06/25/18 Stop Date: [...] Team Personnel Name: Susan Kearney RN Position: [facility] RN Member Role: Primary Care Nurse Name: Lucius Lott RN Position: [facility] RN Member Role: Primary Care Nurse Name: Naheed Gardner RN Position: [facility] RN Member Role: Primary Care Nurse Name: Tramaine MEDELLIN, May Position: S RN Member Role: Primary Care Nurse Name: Allison Carney RN Position: [facility] RN Member Role: Primary Care Nurse Name: Dayanara Martinez RN Position: [facility] SN RN Member Role: Primary Care Nurse Name: Ashley Lew RN Position: [facility] RN Member Role: Primary Care Nurse Name: Juanjose Flynn MD Position: [facility] Outreach Member Role: PCP Address: Address: [address] [place] [address]- Care Team Related Persons Name: JEWELL ALVARADO Address: [address] [place] [address] Name: ODETTE ACOSTA Address: [address] [place] [address] Name: JONATHAN ACOSTA
--- OUTSIDE RECORDS SUMMARY | 2022-07-29 10:53 | XMS_ITS | Continuity of Care Document ---
Author Name Unknown Organization [facility] Address [address] [place] [address]- Care Team Providers Care Artificial Breast Fabricator Name Role Phone Rina WEBBER, Juanjose Em Primary Care Physician [phone] Encounter [facility] Date(s): 07/12/22 - 07/19/22 [facility] [address] [place] [id number] Allergies, Adverse Reactions, Alerts No Known [...] tablet, 3 Refills, Maintenance, Route to PharmacyElectronically, [id number], [facility]/pharmacy #1230 Start Date: 06/25/18 Stop Date: 06/20/19 Status: Ordered Augmentin 875 mg-125 mg oral tablet 1 tablet, By Mouth, Every 12 hours, for 14 days, # 28 tablet, 0 Refills, Acute 07/29/22 10:44:00 EDT, 07/15/22 10:44:00 EDT, Tablet, [facility]/pharmacy #1230, Partial fill upon patient request if [...] Status H ealth Status Informant CAD in [place] artery Confirmed Active Diabetes Confirmed Active Essential hypertension Confirmed Active Hyperlipidemia Confirmed Active Chronic pain of left knee Confirmed Active COPD, moderate Confirmed Active Vital Signs Most recent to oldest [Reference Range]: 1 Height 165 cm (07/12/22 11:15 AM) Weight 55.34 kg (07/12/22 11:15 AM) Oxygen Saturation [94-100 %] 98 % (07/12/22 11:15 AM) Pulse Rate [55-90 bpm] 76 bpm (07/12/22 11:15 AM) Body Mass Index [18.5-24.99 kg/m2] 20.33 kg/m2 (07/12/22 11:15 AM) Blood Pressure [90-138/55-84 mm Hg] 116/ 56mm Hg (07/12/22 11:15 AM) Mode of Delivery (Oxygen) Room air (07/12/22 11:15 AM) Blood pressure sites Arm, left (07/12/22 11:15 AM) Weight Obtained Via Patient/family state d (07/12/22 11:15 AM) Social History Social History Type Response Smoking Status Former smoker; Tobac co user in household: No; Other: pt states he quit 15 yrs ago; entered on: 05/09/16 Sex Patient Care team information Care Team Personnel Name: Susan Kearney RN Position: [facility] RN Member Role: Primary Care Nurse Name: Lucius Lott RN Position: [facility] RN Member Role: Primary Care Nurse Name: Naheed Gardner RN Position: [facility] SN RN Member Role: Primary Care Nurse Name: Yola Redd RN Position: [facility] RN Member Role: Primary Care Nurse Name: Allison Carney RN Position: [facility] RN Member Role: Primary Care Nurse Name: Dayanara Martinez RN Position: [facility] SN RN Member Role: Primary Care Nurse Name: Ashley Lew RN Position: [facility] RN Member Role: Primary Care Nurse Name: Juanjose Flynn MD Position: [facility] Outreach Member Role: PCP Address: Address: [address] [place] [address]- Care Team Related Persons Name: JEWELL ALVARADO Address: [address] [place] [address] Name: ODETTE ACOSTA Address: [address] [place] [address] Name: JONATHAN ACOSTA
--- OUTSIDE RECORDS SUMMARY | 2022-07-29 10:53 | XMS_ITS | Continuity of Care Document ---
Author Name Unknown Organization [facility] Address [address] [place] [address]- Care Team Providers Care Precision Honing Machine Operator Name Role Phone Rina WEBBER, Juanjose Em Primary Care Physician [place] [facility] [place](s): 02/23/21 - 03/25/21 [facility] [address] [place] [address]- [place] Allergies, Adverse Reactions, Alerts No Known Allergies [...] tablet, 3 Refills, Maintenance, Route to PharmacyElectronically, [id number], [facility]/pharmacy #[id number] Start Date: 06/25/18 Stop Date: 06/20/19 Status: [...]
--- OUTSIDE RECORDS SUMMARY | 2022-07-29 10:53 | XMS_ITS | Continuity of Care Document ---
Author Name Unknown Organization [facility] Address [address] [place] [address]- Care Team Providers Care Debeader Name Role Phone Rina WEBBER, Juanjose Em Primary Care Physician Encounter [facility] [place] Date(s): 06/19/22 - 07/26/22 [facility] [address] [place] [address] Allergies, Adverse Reactions, Alerts No [...] tablet, 3 Refills, Maintenance, Route to PharmacyElectronically, [id number], [facility]/pharmacy #1230 Start Date: 06/25/18 Stop Date: 06/20/19 Status: Ordered Augmentin 875 mg-125 mg oral tablet 1 tablet, By Mouth, Every 12 hours, for 14 days, # 28 tablet, 0 Refills, Acute 07/29/22 10:44:00 EDT, 07/15/22 10:44:00 EDT, Tablet, [facility]/pharmacy #1230, Partial fill upon patient request [...] Status H ealth Status Informant CAD in [place] artery Confirmed Active Diabetes Confirmed Active Essential [...] Team Personnel Name: Susan Kearney RN Position: [facility] RN Member Role: Primary Care Nurse Name: Lucius Lott RN Position: [facility] RN Member Role: Primary Care Nurse Name: Naheed Gardner RN Position: [facility] SN RN Member Role: Primary Care Nurse Name: Yola Redd RN Position: [facility] RN Member Role: Primary Care Nurse Name: Allison Carney RN Position: [facility] RN Member Role: Primary Care Nurse Name: Dayanara Martinez RN Position: [facility] SN RN Member Role: Primary Care Nurse Name: Ashley Lew RN Position: [facility] RN Member Role: Primary Care Nurse Name: Juanjose Flynn MD Position: [facility] Outreach Member Role: PCP Address: Address: [address] [place] [address]- Care Team Related Persons Name: JENNYJEWELL Address: [address] [place] [address] Name: ODETTE ACOSTA Address: [address] [place] [address] Name: JONATHAN ACOSTA
--- OUTSIDE RECORDS SUMMARY | 2022-07-29 10:53 | XMS_ITS | Continuity of Care Document ---
Author Name Unknown Organization [facility] Address [address] [place] [address]- Care Team Providers Care Film Historian Name Role Phone Rina WEBBER, Juanjose Em Primary Care Physician [phone] [facility] [place] Date(s): 06/15/22 - 07/15/22 [facility] [address] [place] [address]- Allergies, Adverse Reactions, Alerts No Known Allergies [...] tablet, 3 Refills, Maintenance, Route to PharmacyElectronically, [id number], [facility]/pharmacy #1230 Start Date: 06/25/18 Stop Date: 06/20/19 Status: Ordered Augmentin 875 mg-125 mg oral tablet 1 tablet, By Mouth, Every 12 hours, for 14 days, # 28 tablet, 0 Refills, Acute 07/29/22 10:44:00 EDT, 07/15/22 10:44:00 EDT, Tablet, [facility]/pharmacy #1230, Partial fill upon patient request [...] Status H ealth Status Informant CAD in [place] artery Confirmed Active Diabetes Confirmed Active Essential [...] Team Personnel Name: Susan Kearney RN Position: [facility] RN Member Role: Primary Care Nurse Name: Lucius Lott RN Position: [facility] RN Member Role: Primary Care Nurse Name: Naheed Gardner RN Position: [facility] SN RN Member Role: Primary Care Nurse Name: Yola Redd RN Position: [facility] RN Member Role: Primary Care Nurse Name: Allison Carney RN Position: [facility] RN Member Role: Primary Care Nurse Name: Dayanara Martinez RN Position: [facility] SN RN Member Role: Primary Care Nurse Name: Ashley Lew RN Position: [facility] RN Member Role: Primary Care Nurse Name: Juanjose Flynn MD Position: [facility] Outreach Member Role: PCP Address: Address: [address] [place] [address]- [place] Care Team Related Persons Name: JEWELL ALVARADO Address: [address] [place] [address] Name: ODETTE ACOSTA Address: [address] [place] [address] Name: JONATHAN ACOSTA
--- OUTSIDE RECORDS SUMMARY | 2022-07-29 10:53 | XMS_ITS | Continuity of Care Document ---
Author Name Unknown Organization [facility] Address [address] [place] [address]- Care Team Providers Care Soiled Linen Distributor Name Role Phone Juanjose Flynn MD Primary Care Physician Encounter [facility] Date(s): 05/10/22 - 05/17/22 [facility] [address] [place] [id number] Attending Physician: Juanjose Flynn MD Admitting Physician: Juanjose Flynn MD Allergies, Adverse Reactions, [...] tablet, 3 Refills, Maintenance, Route to PharmacyElectronically, [id number], [facility]/pharmacy #[id number] Start Date: 06/25/18 Stop Date: 06/20/19 Status: [...] Status H ealth Status Informant CAD in [place] artery Confirmed Active Diabetes Confirmed Active Essential hypertension Confirmed Active Hyperlipidemia Confirmed Active Chronic pain of left knee Confirmed Active COPD, moderate Confirmed Active Vital Signs Most recent to oldest [Reference Range]: 1 Height 165 cm (05/10/22 1:38 PM) Weight 54 kg (05/10/22 1:38 PM) Oxygen Saturation [94-100 %] 98 % (05/10/22 1:38 PM) Pulse Rate [55-90 bpm] 85 bpm (05/10/22 1:38 PM) Body Mass Index [18.5-24.99 kg/m2] 19.83 kg/m2 (05/10/22 1:38 PM) Blood Pressure [90-138/55-84 mm Hg] 148/ 58mm Hg *H* (05/10/22 1:38 PM) Mode of Delivery (Oxygen) Room air (05/10/22 1:38 PM) Blood pressure sites Arm, left (05/10/22 1:38 PM) Weight Obtained Via Patient/family state d (05/10/22 1:38 PM) Social History Social History Type Response Smoking Status Former smoker; Tobac co user in household: No; Other: pt states he quit 15 yrs ago; entered on: 05/09/16 Sex Note * Marlys Wright: PERFORM, SIGN, VERIFY Event Display: Patient Education/Instruction Authored Date: [id number] [facility] *BVS [address] Clinical Summary Name RAD ACOSTA Age 81 Years 1940 PCP Rina WEBBER , Juanjose Em PCP Visit Date 05/10/2022 13:30:00 Additional Instructions: Scheduled Appointments?? Future Appointments ?No [...] orders Vital Signs Height 165 cm Weight 54 kg BMI 19.83 kg/m2 Blood Pressure 148 mm Hg/58 mm Hg Temperature Pulse Rate 85 bpm Respiratory Rate 02 Sat Mode of Delivery 98 %/Room air You can now view a summary of your hospital visit from the comfort of your home through a free online portal called GitHub. GitHub is a website that allows you to securely view your medical information including discharge summary, medications and follow-up visits. ??You can alsosend a secure electronic message to your doctor???s office to request appointments, renew medications or just ask a question. You can enroll at [email or web address] or register during your next office visit. [...] primary care provider, you may find a [facility] provider by calling [facility] [employer] [facility] at [phone]. For information about the plan of care [...] Team Personnel Name: Susan Kearney RN Position: [facility] RN Member Role: Primary Care Nurse Name: Lucius Lott RN Position: [facility] RN Member Role: Primary Care Nurse Name: Naheed Gardner RN Position: [facility] SN RN Member Role: Primary Care Nurse Name: Tramaine MEDELLIN Yola Position: [facility] RN Member Role: Primary Care Nurse Name: Allison Carney RN Position: [facility] RN Member Role: Primary Care Nurse Name: Dayanara Martinez RN Position: [facility] SN RN Member Role: Primary Care Nurse Name: Juanjose Flynn MD Position: [facility] Outreach Member Role: PCP Address: Address: [address] [place] [address]- Care Team Related Persons Name: JEWELL ALVARADO Address: home [address] [place] [address] Name: ODETTE ACOSTA Address: home [address] [place] [address] Name: JONATHAN ACOSTA
--- OUTSIDE RECORDS SUMMARY | 2022-07-29 10:53 | XMS_ITS | Continuity of Care Document ---
Author Name Unknown Organization [facility] Address [address] [place] [address]- Care Team Providers Care Crusher Feeder Name Role Phone Juanjose Flynn MD Primary Care Physician Encounter [facility] R [id number] Date(s): 08/05/20 - 12/03/20 [facility] [address] [place] [address]- Attending Physician: Ar Levin MD Referring Physician: Juanjose Flynn MD Allergies, Adverse Reactions, Alerts Substance Reaction [...] tablet, 3 Refills, Maintenance, Route to PharmacyElectronically, [id number], [facility]/pharmacy #[id number] Start Date: 06/25/18 Stop Date: 06/20/19 Status: [...] of left knee(Confirmed) Active COPD, moderate(Confirmed) Active Vital Signs Most recent to oldest [Reference Range]: 1 Height 165 cm (11/03/20 10:40 AM) Social History Social History Type Response Smoking Status Former smoker; Tobac co user in household: No; Other: pt states he quit 15 yrs ago; entered on: 05/09/16 Sex
--- OUTSIDE RECORDS SUMMARY | 2022-07-29 10:53 | XMS_ITS | Continuity of Care Document ---
Author Name Unknown Organization [facility] Address [address] [place] [address]- Care Team Providers Care Automotive Service Manager Name Role Phone Juanjose Flynn MD Primary Care Physician [phone] [place] [facility] [place] 10[place]19[place]21 - 10/26/21 [facility] [address] [place] [address]- Encounter Diagnosis CAD in [place] artery(Discharge Diagnosis) - 10/19/21 Essential hypertension(Discharge Diagnosis) - 10/19/21 Hyperlipidemia(Discharge Diagnosis) - 10/19/21 Attending Physician: Ar Levin MD Referring Physician: [...] tablet, 3 Refills, Maintenance, Route to PharmacyElectronically, [id number], [facility]/pharmacy #[id number] Start Date: 06/25/18 Stop Date: 06/20/19 Status: [...] Effective Dates Status Health Status Inform ant CAD in [place] artery(Confirmed) Active Diabetes(Confirmed) Active Essential hypertension(Confirmed) Active Hyperlipidemia(Confirmed) Active Chronic pain of left knee(Confirmed) Active COPD, moderate(Confirmed) Active Diagnosis Diagnosis Type Effective Dates Health Status Clinical Service Informant CAD in [place] artery Discharge Diagnosis 10/19/21 Essential hypertension Discharge Diagnosis 10/19/21 Hyperlipidemia Discharge Diagnosis 10/19/21 Vital Signs Most recent to oldest [Reference Range]: 1 Height 165 cm (10/19/21 9:44 AM) Social History Social History Type Response Smoking Status Former smoker; Tobac co user in household: No; Other: pt states he quit 15 yrs ago; entered on: 05/09/16 Sex Care Team Personnel Name: Juanjose Flynn MD Address: [address] [place] [address]
--- OUTSIDE RECORDS SUMMARY | 2022-07-29 10:53 | XMS_ITS | Continuity of Care Document ---
Author Name Unknown Organization [facility] ter Address [address] [place] [address]- Care Team Providers Care Air Moving Technician Name Role Phone Rina WEBBER, Juanjoes Em Primary Care Physician [phone] Encounter [facility] Date(s): 01/01/22 - 02/10/[address] [address]- Attending Physician: Ar Levin MD Admitting Physician: Ar Levin MD Referring Physician: Ar Levin MD Allergies, Adverse Reactions, Alerts No Known [...] tablet, 3 Refills, Maintenance, Route to PharmacyElectronically, [id number], [facility]/pharmacy #[id number] Start Date: 06/25/18 Stop Date: 06/20/19 Status: [...] Status H ealth Status Informant CAD in [place] artery Confirmed Active Diabetes Confirmed Active Essential [...] Team Personnel Name: Susan Kearney RN Position: [facility] RN Member Role: Primary Care Nurse Name: Lucius Lott RN Position: [facility] RN Member Role: Primary Care Nurse Name: Naheed Gardner RN Position: [facility] RN Member Role: Primary Care Nurse Name: Allison Carney RN Position: [facility] RN Member Role: Primary Care Nurse Name: Dayanara [place] RN Position: [facility] SN RN Member Role: Primary Care Nurse Name: Juanjose Flynn MD Position: [facility] Outreach Member Role: PCP Address: Address: [address] [place] [address]- Care Team Related Persons Name: JEWELL ALVARADO Address: home [address] [place] [address] Name: ODETTE ACOSTA Address: [address] [place] [address] Name: JONATHAN ACOSTA
--- OUTSIDE RECORDS SUMMARY | 2022-07-29 10:53 | XMS_ITS | Continuity of Care Document ---
Author Name Unknown Organization [facility] Address [address] [place] [address]- Care Team Providers Care X Ray Developing Machine Operator Name Role Phone Rina WEBBER, Juanjose Em Primary Care Physician Encounter [facility] Date(s): 06/05/22 - 07/15/22 [facility] [address] [place] [address]- Attending Physician: Kieran Medellin Admitting Physician: Kieran Medellin Allergies, Adverse Reactions, Alerts No Known Allergies [...] tablet, 3 Refills, Maintenance, Route to PharmacyElectronically, [id number], [facility]/pharmacy #[id number] Start Date: 06/25/18 Stop Date: 06/20/19 Status: Ordered Augmentin 875 mg-125 mg oral tablet 1 tablet, By Mouth, Every 12 hours, for 14 days, # 28 tablet, 0 Refills, Acute 07/29/22 10:44:00 EDT, 07/15/22 10:44:00 EDT, Tablet, [facility]/pharmacy #[id number], Partial fill upon patient request if [...] Status H ealth Status Informant CAD in [place] artery Confirmed Active Diabetes Confirmed Active Essential [...] Team Personnel Name: Susan Kearney RN Position: [facility] RN Member Role: Primary Care Nurse Name: Lucius Lott RN Position: [facility] RN Member Role: Primary Care Nurse Name: Naheed Gardner RN Position: [facility] SN RN Member Role: Primary Care Nurse Name: Yola Redd RN Position: [facility] RN Member Role: Primary Care Nurse Name: Allison Carney RN Position: [facility] RN Member Role: Primary Care Nurse Name: Dayanara Martinez RN Position: [facility] SN RN Member Role: Primary Care Nurse Name: Ashley Lew RN Position: [facility] RN Member Role: Primary Care Nurse Name: Juanjose Flynn MD Position: [facility] Outreach Member Role: PCP Address: Address: [address] [place] [address]- [place] Care Team Related Persons Name: JEWELL ALVARADO Address: [address] [place] [address] Name: ODETTE ACOSTA Address: [address] [place] [address] Name: JONATHAN ACOSTA
--- OUTSIDE RECORDS SUMMARY | 2022-07-29 10:53 | XMS_ITS | Continuity of Care Document ---
Author Name Unknown Organization [facility] Address [address] [place] [address]- Care Team Providers Care Forest Fire Prevention Specialist Name Role Phone Rina WEBBER, Juanjose Em Primary Care Physician [place] [facility] [place] 04[place]07[place]22 - 05/14/22 [facility] [address] [place] [address]- Attending Physician: Aditya Parry MD Admitting Physician: Aditya Parry MD Referring Physician: Nydia Burden DPM Allergies, Adverse [...] tablet, 3 Refills, Maintenance, Route to PharmacyElectronically, [id number], [facility]/pharmacy #[id number] Start Date: 06/25/18 Stop Date: 06/20/19 Status: [...] Status H ealth Status Informant CAD in [place] artery Confirmed Active Diabetes Confirmed Active Essential [...] Team Personnel Name: Susan Kearney RN Position: [facility] RN Member Role: Primary Care Nurse Name: Lucius Lott RN Position: [facility] RN Member Role: Primary Care Nurse Name: Naheed Gardner RN Position: [facility] RN Member Role: Primary Care Nurse Name: Allison Carney RN Position: [facility] RN Member Role: Primary Care Nurse Name: Dayanara Martinez RN Position: [facility] SN RN Member Role: Primary Care Nurse Name: Juanjose Flynn MD Position: [facility] Outreach Member Role: PCP Address: Address: [address] [place] [address]- Care Team Related Persons Name: JEWELL ALVARADO Address: [address] [place] [address] Name: ODETTE ACOSTA Address: [address] [place] [address] Name: JONATHAN ACOSTA
--- OUTSIDE RECORDS SUMMARY | 2022-07-29 10:53 | XMS_ITS | Continuity of Care Document ---
Author Name Unknown Organization [facility] ter Address [address] [place] [address]- Care Team Providers Care Retention Manager Name Role Phone Rina WEBBER, Juanjose Em Primary Care Physician [place] [facility] [place] 05/18/22 - 06/17/[address] [address]- Attending Physician: Not on Staff, Attending MD Admitting Physician: Not on Staff, Admitting MD Referring Physician: Not on Staff, Referring MD Allergies, Adverse Reactions, Alerts No Known [...] tablet, 3 Refills, Maintenance, Route to PharmacyElectronically, [id number], [facility]/pharmacy #[id number] Start Date: 06/25/18 Stop Date: 06/20/19 Status: [...] Status H ealth Status Informant CAD in [place] artery Confirmed Active Diabetes Confirmed Active Essential [...] Team Personnel Name: Susan Kearney RN Position: S RN Member Role: Primary Care Nurse Name: Lucius Lott RN Position: S RN Member Role: Primary Care Nurse Name: Naheed Gardner RN Position: [facility] RN Member Role: Primary Care Nurse Name: Tramaine MEDELLIN, May Position: [facility] RN Member Role: Primary Care Nurse Name: Allison Carney RN Position: [facility] RN Member Role: Primary Care Nurse Name: Dayanara Martinez RN Position: [facility] RN Member Role: Primary Care Nurse Name: Ashley Lew RN Position: [facility] RN Member Role: Primary Care Nurse Name: Juanjose Flynn MD Position: [facility] Outreach Member Role: PCP Address: Address: [address] [place] [address]- [place] Care Team Related Persons Name: JEWELL ALVARADO Address: [address] [place] [address] Name: ODETTE ACOSTA Address: [address] [place] [address] Name: JONATHAN ACOSTA
--- OUTSIDE RECORDS SUMMARY | 2022-07-29 10:53 | XMS_ITS | Continuity of Care Document ---
Author Name Unknown Organization [facility] Address [address] [place] [address]- Care Team Providers Care Casino Cashier Name Role Phone Juanjose Flynn MD Primary Care Physician [phone] En[place] [facility] Date(s): 11/03/20 - 11/10/20 [facility] [address] [place] [address]- Encounter Diagnosis CAD in [place] artery(Discharge Diagnosis) - 11/03/20 Essential hypertension(Discharge Diagnosis) - 11/03/20 Hyperlipidemia(Discharge Diagnosis) - 11/03/20 Attending Physician: Ar Levin MD Referring Physician: [...] tablet, 3 Refills, Maintenance, Route to PharmacyElectronically, [id number], [facility]/pharmacy #1230 Start Date: 06/25/18 Stop Date: [...] Health Status Clinical Service Informant CAD in [place] artery Discharge Diagnosis 11/03/20 Essential hypertension Discharge Diagnosis 11/03/20 Hyperlipidemia Discharge Diagnosis 11/03/20 Social History Social History Type Response Smoking Status Former smoker; Tobac co user in household: No; Other: pt states he quit 15 yrs ago; entered on: 05/09/16 Sex
--- OUTSIDE RECORDS SUMMARY | 2022-07-29 10:53 | XMS_ITS | Continuity of Care Document ---
Author Name Unknown Organization [facility] ter Address [address] [place] [address]- Care Team Providers Care Fire Management Specialist Name Role Phone Rina WEBBER, Juanjose Em Primary Care Physician Encounter [facility] Date(s): 06/02/22 - 07/12/[address] [address] Attending Physician: Ar Levin MD Admitting Physician: [...] tablet, 3 Refills, Maintenance, Route to PharmacyElectronically, [id number], [facility]/pharmacy #[id number] Start Date: 06/25/18 Stop Date: 06/20/19 Status: [...] Status H ealth Status Informant CAD in [place] artery Confirmed Active Diabetes Confirmed Active [...] Care Nurse Name: Naheed Gardner RN Position: [facility] RN Member Role: Primary Care Nurse Name: Tramaine MEDELLIN, Yola Position: [facility] RN Member Role: Primary Care Nurse Name: Allison Carney RN Position: [facility] RN Member Role: Primary Care Nurse Name: Dayanara Martinez RN Position: [facility] SN RN Member Role: Primary Care Nurse Name: Ashley Lew RN Position: [facility] RN Member Role: Primary Care Nurse Name: Juanjose Flynn MD Position: [facility] Outreach Member Role: PCP Address: Address: [address] [place] [address]- Care Team Related Persons Name: JEWELL ALVARADO Address: [address] [place] [address] Name: ODETTE ACOSTA Address: [address] [place] [address] Name: JONATHAN ACOSTA
--- OUTSIDE RECORDS SUMMARY | 2022-07-29 10:53 | XMS_ITS | Continuity of Care Document ---
Author Name Unknown Organization [facility] ter Address [address] [place] [id number]- Care Team Providers Care Soil Expert Name Role Phone Rina WEBBER, Juanjose Em Primary Care Physician Encounter [facility] Date(s): 05/04/22 - 05/04/22 [facility] [address] [place] [id number]- Discharge Disposition: A-D/C Home Allergies, Adverse Reactions, [...] tablet, 3 Refills, Maintenance, Route to PharmacyElectronically, [id number], [facility]/pharmacy #[id number] Start Date: 06/25/18 Stop Date: 06/20/19 Status: [...] Status H ealth Status Informant 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 Diabetes Confirmed Active Essential hypertension Confirmed Active Hyperlipidemia Confirmed Active Chronic pain of left knee Confirmed Active COPD, moderate Confirmed Active Vital Signs Most recent to oldest [Reference Range]: 1 2 3 Weight 54 kg (05/04/22 12:08 PM) Oxygen Saturation [94-100 %] 100 % (05/04/22 7:15 PM) 100 % (05/04/22 7:00 PM) 100 % (05/04/22 6:30 PM) Pulse Rate [55-90 bpm] 73 bpm (05/04/22 12:08 PM) Blood Pressure [90-138/55-84 mm Hg] 142/83mm Hg *H* (05/04/22 7:15 PM) 150/72mm Hg *H* (05/04/22 7:00 PM) 154/64mm Hg *H* (05/04/22 6:30 PM) Respiratory Rate [16-30 br/min] 21 br/min (05/04/22 7:15 PM) 20 br/min (05/04/22 7:00 PM) 19 br/min (05/04/22 6:30 PM) Temperature [96.8-100.4 DegF] 98.4 DegF (05/04/22 3:45 PM) 98.7 DegF (05/04/22 12:08 PM) Mode of Delivery (Oxygen) Room air (05/04/22 7:15 PM) Room air (05/04/22 7:00 PM) Room air (05/04/22 6:30 PM) Blood pressure sites Arm, left (05/04/22 12:08 PM) Temperature Route Temporal (05/04/22 3:45 PM) Temporal (05/04/22 12:08 PM) Dry Weight 54 kg (05/04/22 12:08 PM) Weight Obtained Via Standing scale (05/04/22 12:08 PM) Social History Social History Type Response Smoking Status Former smoker; Tobac co user in household: No; Other: pt states he quit 15 yrs ago; entered on: 05/09/16 Sex Note * Event Display: VL Venous Duplex Mapping Lower Ext Bilat Authored Date: Status:Open Vascular Lower Extremities Vein Mapping Study Demographics Procedure Information Patient name: DAVE LEROY Procedure date: 05/04/2022 3:09 PM Corporate Proc. sub type: Veins: Lower Extremity Vein Mapping, Venous Duplex Map Lower Extremity Gender: Male Bilateral. Date of : 1940 Accession No: [id number] Age: 81 year(s) Account No: [id number] Patient status: YOLY Procedure Staff Admit Status: Outpatient Attending Physician: Delia Woo MD Probe: L12-3 Ordering physician: Priest Rob Acosta NP Technical quality: Limited visualization Referring Physician: Priest Rob Acosta NP Limitation reason: Wound dressings [employer] Machine Tender: Sarkis Helms RVT Facility: [facility] Interpreting physician: Karri Gross MD Study location: [facility] Procedure consent obtained: Indications No Pre-Op Evaluation and Peripheral Arterial Disease . LE Vein Mapping Findings Great Saphenous : Right Left AP AP Diam DIam Location (mm) Branches Quality (mm) Branches Quality Sapheno Femoral Junction 7.6 5.6 GSV High Thigh 3.3 2.3 Yes GSV Mid Thigh 1.1 2.2 GSV Low Thigh 1.3 Yes 2.1 GSV Knee 1.7 1.1 GSV High Calf 1.4 GSV Mid Calf 1.6 1.6 GSV Low Calf 1.2 Yes 1.6 GSV Ankle 1.9 1.3 Physician Conclusions Summary: Right side: The right Great Saphenous Vein is patent with measurements as noted above. Left side: The left Great Saphenous Vein is patent with measurements as noted above. Both veins appear to be of poor size for conduit. * Event Display: VL Venous Duplex Mapping Lower Ext Bilat Authored Date: * Chata Loyola RN: PERFORM Event Display: Discharge/Transfer Note Hospital Authored Date: [id number] Nursing Discharge Note Entered On: 05/04/2022 19:35 EDT Performed On: 05/04/2022 19:35 EDT by Chata Loyola RN Nursing Discharge Note 2 Discharge Time : 05/04/2022 19:59 EDT Discharge Level of Care at Discharge : Home/Shelter/Foster Care Patient Left Unit Via : Wheelchair Patient Accompanied Off Unit with : Responsible adult Chata Loyola RN - 05/04/2022 20:03 EDT DC Instructions Provided & Signed by Pt : Yes Patient Understands D/C Instructions : Yes Patient Instructions Discharge Signed : Yes Did Pt have Specialty Bed or Wound Vac : No Chata Loyola RN - 05/04/2022 19:35 EDT * Chata Loyola RN: PERFORM Event Display: Patient Education/Instruction Authored Date: [id number] Inpatient Adult Discharge Instructions [address] [address] Name: RAD ACOSTA : 1940 Visit: 05/04/2022 11:46:00 Current Date: 05/04/2022 18:30 Account: [id number] Inpatient Adult Discharge Instructions We would like [...] and their families. Surveys are administered by [employer] ?? If further treatment with your primary care physician or another doctor is recommended, it is important for you to keep the appointment. Call your primary care physician or return to the Emergency Department immediately if your condition worsens, fails to improve, or new symptoms develop. If you need to find a doctor, you can call [facility] for a referral at [phone] or toll free at [phone]) or log in to [email or web address].. ?? You can view and manage your care through the patient portal or by using a health care yunier of your choosing. [employer] is a website that allows you to securely view your medical information including your hospital discharge summary, office visit summaries, medications and follow-up visits. You can also request appointments, renew medications, and request access to your medical information using a health care yunier of your choosing, or just ask a question. You can enroll at [email or web address] or register during your next office visit. You have been discharged from [facility], Patient Care Unit: PANU. If you have any questions regarding these instructions after you leave, please call us and we will be happy to assist you. [facility] Your Care Team Consulting Providers Chilo WEBBER, Delia Spencer Reason for Admission NON HEAL ULCERS PRADEEP LE AN POSS IN L HV2 DST 1145A Tests Performed Below is a partial list of the tests performed during your hospitalization. You may have had other tests and procedures not included in this list. Please discuss all test results with your provider. GLUCOSE POC Primary Care Provider Rina WEBBER , Juanjose Em Advance Directive Health Care Proxy on File No Discharge Vitals Temperature: 98.4 DegF Weight: 54 kg Pulse Rate: 73 bpm ?? Respiratory Rate: 19 br/min ?? Systolic Blood Pressure:??154 mm Hg??High ?? Diastolic Blood Pressure: 64 mm Hg ?? Oxygen Saturation: 100 % ?? Studies Pending All tests and labs ordered during this hospital stay have been completed unless listed below. Please discuss all pending results with your provider listed above in these instructions. ?? No incomplete studies found What to do next Instructions From Your Doctor Discharge Orders Scheduled Follow-Up Appointments Sunday 11:20 AM EDT ?? With: Delia Woo MD Where: [address] [address]- You Need to Schedule the Following Appointments Follow Up with??[facility] [phone] When??05/16/2022 11:20 AM EDT Where: [address] [place], [place] Follow Up with??Juanjose Flynn MD When??In 0 days Where: [address] [place] [address]- Business (1) Discharge Medications RAD ACOSTA :1940 Visit Date:05/04/2022 Medications: Please continue your medications until treatment is completed or stopped by your provider. Medications not listed below should be discontinued. Discuss any questions related to medications with your provider. What How Much When Instructions Next Dose Unchanged Albuterol (albuterol 90 mcg/ inh inhalation powder) 2 puff(s) Inhalation Every 4 hours as needed for as needed Unchanged Aspirin (aspirin 81 mg oral tablet) 1 tab(s) Oral Daily Resume home schedule Unchanged Atorvastatin (atorvastatin 80 mg oral tablet) 1 tab(s) Oral Daily at supper Duration: 90 Days Resume home schedule Unchanged Bisoprolol (bisoprolol 5 mg oral tablet) 1 tab(s) Oral Daily Resume home schedule Unchanged Budesonide-Formoterol (Symbicort 160mcg/ 4.5mcg Inhaler) 2 puff(s) Inhalation Twice a day Resume home schedule Unchanged Famotidine (famotidine 20 mg oral tablet) 1 tab(s) Oral Twice a day Resume home schedule Unchanged Insulin Aspart (NovoLOG FlexPen 100 units/ mL subcutaneous solution) Subcutaneous Infusion 3 times a day before meals Resume home schedule Unchanged Insulin Glargine (Lantus Solostar Pen 100 units/ mL subcutaneous solution) Subcutaneous Infusion 12 units ?? Resume home schedule Unchanged Lactulose (lactulose 10 gm/ 15 ml oral syrup) 15 Milliliter Oral Daily as needed for as needed for constipation Duration: 30 Days Resume home schedule Unchanged Levalbuterol (levalbuterol 1.25 mg/ 0.5 mL inhalation solution) 0.5 Milliliter Nebulized inhalation 3 times a day as needed for for wheezing Resume home schedule Unchanged Multivitamin With Minerals (Centrum Silver Men's) 1 tab(s) Oral Daily Resume home schedule Unchanged Oxycodone (oxyCODONE 10 mg oral tablet) 2 tab(s) Oral Every 6 hours as needed for as needed for pain Resume home schedule Unchanged Tiotropium (Spiriva HandiHaler 18 mcg Inhalation Capsule) 18 Microgram Inhalation Daily Resume home schedule Test Results Below is a partial list of the most recent Laboratory test results done prior to this discharge. You may have had other tests and procedures not included in this list. Please discuss all test resultswith your provider. 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 Chronic pain of left knee?? COPD, moderate?? Diabetes?? Essential hypertension?? Hyperlipidemia?? Education Materials Below is the list of Educational Leaflet Providered with your Discharge Instructions. M-NSx DC Instructions Angio?? Recovery After Procedural Sedation (Adult)?? M-Groin I Discharge Instructions?? Valuables and Belongings I fully understand and agree that [facility] accepts no responsibility for all my personal [...] of Valuable and Belonging List: With patient Possessions released to: to pacu Date for Pt to Sign Valuables/Belongings: 05/04/22 12:26:00 ?? Valuables & Belongings ?? Clothes Electronic devices Jewelry Monetary Items Personal devices Miscellaneous Medications (Valuables) Valuables at Bedside Jacket, Pants, Shirt, Shoes, Undergarments Cell phone ?? Purse, Wallet Dentures, full ? Valuables Sent Home ? Valuables Sent to Security ? Other Discharge Information ? Pulmonary Rehab Status?? Pulmonary Rehab Discharge Status?? Respiratory Rate: 19 br/min ? Common Emergency Awareness Tips IS [...] are strongly encouraged to quit. Please call [facility] at [phone] or [phone] Transmit & Receive ([phone]) or log in to [email or web address] for referrals to smoking cessation programs. ?? The National Suicide Prevention Hotline is available 11/09 if you or someone you know needs to find a reason to keep living. By calling 4-653-195BiOxyDyn (7801) you'll be connected to a skilled, trained counselor at a crisis center in your area. INPATIENT DISCHARGE INSTRUCTIONS SIGNATURE PAGE DAVERAD Location:[facility] Registration Date and Time:05/04/2022 11:46 EDT Primary Care Physician: Rina WEBBER , Juanjose Em, I RAD ACOSTA, have received the above patient education materials/instructions and have verbalized understanding. If ambulance or transport services are being used I further acknowledge being given a choice of service. ?? If you need to contact me, please call me at this number: . Patient/Water And Fire Technician Name: Patient/Water And Fire Technician Signature: Relationship to Patient: Witness Name/Signature: Date: * Chata Loyola RN: PERFORM, SIGN, VERIFY Event Display: Patient Education Handout Authored Date: [id number] * Chata Loyola RN: PERFORM Event Display: Patient Education Leaflets Authored Date: [id number] M-NSx DC Instructions Angio ?? 184 Diagnostic Angiogram Discharge Instructions ?? Call your doctor if you have or experience any of the following: ??? Bleeding from the puncture site, temperature of 101 or more, redness, drainage, swelling or increased discomfort at the puncture site. ??? Change in breathing, chest pain, dizziness, fainting, significant worsening of palpitations, nausea, vomiting, or change in appetite. ??? Side-effects from the medications (rash, cough, dizziness, leg cramps, nausea or blurred vision). ??? New redness or irritation on your back which can result (rarely) from exposure to radiation during your procedure. ?? Call 911 or go to your closest emergency room if you develop any of the following: ??? New sudden onset of weakness, numbness, loss or changes in your vision, slurred or garbled speech, or any concern for a stroke or mini-stroke. ??? Numbness, tingling, loss of sensation, and for coolness to your arms or legs. ??? Chest pain or discomfort that is not relieved with rest. ?? If profuse bleeding (does not stop in 30 minutes) occurs hold pressure to the site and CALL [address] [facility] THE [facility]. ?? Follow Up Instructions: ??? You should have a follow up appointment with your doctor within 2-8 days of the procedure. ??? If you do not have an appointment already scheduled, call [phone] to make an appointment when you get home. ?? Post-Procedure Instructions: ??? No heavy lifting over 10 pounds (gallon of milk) for 1 week following the procedure, gradually increase activities over the next 5 days. ??? You may feel like restingmore after your procedure. Slowly start to do more each day. Rest when you feel it is needed. ??? No driving or operating heavy machinery the day of discharge. ??? Make sure to look at your proceduresite every day until completely healed. You may see bruising at the puncture site and that is common after the procedure. ??? You may shower when you go home but no tub baths, hot tubs, soaking of the puncture site or swimming for 1 week. ??? Keep the site covered with a band-aid for 48 hours. Apply clean band-aid after showering for the next 2 days. ??? If you have mild pain at the incision siteyou may take Tylenol or ibuprofen or Aleve as needed. DO NOT TAKE combinations of the above. ??? A follow-up phone call by a nurse will be made within 72 hours of your procedure. ??? At the earliest you can return to work 5 days after your procedure, the above restrictions may apply (e.g. lifting).??? You may resume sexual activity 5 days after procedure; avoid bending the hip on the side of thegroin puncture excessively and any strenuous positions. ??? You should resume all your regular medications as scheduled before the procedure unless a specific change was made by your doctor or their team during or after the procedure. ??? If you are taking Aspirin, Plavix or other antiplatelet medic ation you MUST not miss a dose. ??? If you were taking Coumadin before the procedure you should have specific instructions in your possession. You should resume Coumadin on day 1 after the procedure.Adhere to the prescribed lovenox injections until you follow-up with your Coumadin clinic to check your INR. You should follow-up with your Coumadin clinic 4-6 days after your procedure. ?? * Chata Loyola RN: PERFORM Event Display: Patient Education Leaflets Authored Date: [id number] Recovery After Procedural Sedation (Adult) ?? [id number] Recovery After Procedural Sedation (Adult) You have been given medicine by vein to make you sleep during your procedure. This may have included both a pain medicine and sleeping medicine. Most of the effects have worn off. But you may still have some drowsiness for the next 6 to 8 hours. Home care Follow these guidelines when you get home: ??? For the next 8 hours, you should be watched by a responsible adult. This person should make sure your condition is not getting worse. ??? Don't drink any alcohol??for the next 24 hours. ??? Don'tdrive, operate dangerous machinery, or make important business or personal decisions??during the next 24 hours. Note: Your healthcare provider may tell you not to take any medicine by mouth for pain or sleep in the next 4 hours. These medicines may react with the medicines you were given in the hospital. This could cause a much stronger response than usual. ?? Follow-up care Follow up with your healthcare provider as advised. Also follow up with your provider if you are not alert and back to your usual level of activity within 12 hours. ?? When to seek medical advice Have someone call your healthcare provider right away if any of these occur: ??? Drowsiness gets worse ??? Weakness or dizziness gets worse ??? Repeated vomiting ??? Severe or ongoing pain from the procedure that's not eased by the pain medicine (if prescribed) ??? Fever ??? New rash ?? Call 911 Have someone call 911 if you have any of these: ??? Shortness of breath ??? Chest pain ??? Loss of consciousness or you can't be awakened ?? Last Reviewed Date: 2021 ?? [id number] [employer]. All rights reserved. This information is not intended as a substitute for professional medical care. Always follow your healthcare professional's instructions. ?? * Chata Loyola RN: PERFORM Event Display: Patient Education Leaflets Authored Date: [id number] M-Groin I Discharge Instructions ?? 179 Groin Discharge Instructions No heavy lifting over 10 pounds (for example: gallon of milk) 1 week following the procedure; gradually increase normal activity over the next 5 days. Avoid straining/pushing when moving bowels You may feel like resting more after your procedure. Slowly start to do more each day. Rest when you feel it is needed. Make sure to look at your procedure site every day until it is completely healed. You may see bruising at the puncture site and that is common after the procedure. You may shower the day after your procedure. Remove the band aid before showering. Wash the area gently with soap and water. Leave open to air. Do not take tub baths, hot tubs, soaking of the puncture site or swimming for 1 week. Do not put any creams, powders or lotions on your puncture site You may resume sexual activity the day after your procedure; avoid bending the hip on ?? the side of the groin puncture excessively and any strenuous positions for 1 week. Call your doctor if your procedure site develops any of the following: ??? New onset severe pain ??? New onset lump or swelling ??? Bleeding that does not stop with lightpressure ? Patient Care team information Care Team Personnel Name: Susan Kearney RN Position: [facility] RN Member Role: Primary Care Nurse Name: Lucius Lott RN Position: [facility] RN Member Role: Primary Care Nurse Name: Naheed Gardner RN Position: [facility] RN Member Role: Primary Care Nurse Name: Allison Carney RN Position: [facility] RN Member Role: Primary Care Nurse Name: Dayanara Martinez RN Position: [facility] RN Member Role: Primary Care Nurse Name: Juanjose Flynn MD Position: [facility] Outreach Member Role: PCP Address: Address: [address] [place] [id number] [place] Care Team Related Persons Name: JEWELL ALVARADO Address: home [address] [place] [address] Name: ODETTE ACOSTA Address: [address] [place] [address] Name: JONATHAN ACOSTA
--- OUTSIDE RECORDS SUMMARY | 2022-07-29 10:53 | XMS_ITS | Continuity of Care Document ---
Author Name Unknown Organization [facility] Address [address] [place] [address]- Care Team Providers Care Tax Form Preparer Name Role Phone Juanjose Flynn MD Primary Care Physician Encounter [facility] [place] Date(s): 06/02/22 - 06/09/22 [facility] [address] [place] [address]- Attending Physician: Kieran Medellin Admitting Physician: Kieran Medellin Referring Physician: Juanjose Flynn MD Allergies, Adverse [...] tablet, 3 Refills, Maintenance, Route to PharmacyElectronically, [id number], [facility]/pharmacy #[id number] Start Date: 06/25/18 Stop [...] Status H ealth Status Informant CAD in [place] artery Confirmed Active Diabetes Confirmed Active Essential hypertension Confirmed Active Hyperlipidemia Confirmed Active Chronic pain of left knee Confirmed Active COPD, moderate Confirmed Active Vital Signs Most recent to oldest [Reference Range]: 1 Height 165 cm (06/02/22 2:24 PM) Weight 62.4 kg (06/02/22 2:24 PM) Oxygen Saturation [94-100 %] 93 % *L* (06/02/22 2:24 PM) Pulse Rate [55-90 bpm] 86 bpm (06/02/22 2:24 PM) Body Mass Index [18.5-24.99 kg/m2] 22.92 kg/m2 (06/02/22 2:24 PM) Blood Pressure [90-138/55-84 mm Hg] 110/ 80mm Hg (06/02/22 2:24 PM) Mode of Delivery (Oxygen) Room air (06/02/22 2:24 PM) Blood pressure sites Arm, left (06/02/22 2:24 PM) Social History Social History Type Response Smoking Status Former smoker; Tobac co user in household: No; Other: pt states he quit 15 yrs ago; entered on: 05/09/16 Sex Note * Mar Valentine: PERFORM, SIGN, VERIFY Event Display: Patient Education/Instruction Authored Date: [id number] [facility] *[facility] [address] Clinical Summary Name RAD ACOSTA Age 81 Years 1940 PCP Rina WEBBER , Juanjose Em PCP Visit Date 06/02/2022 14:24:00 Additional Instructions: Scheduled Appointments?? Future Appointments ?*[facility]??[place],??[place],??[address] ?Phone:??--?Fax:??-- ?Appt. Date:??07/24/2022?3:20 PM ?Scheduled Provider:??Chilo WEBBER, Delia Spencer Follow-Up Instructions ?? Diagnosis Medications: Please continue your medications until treatment is completed or stopped by your provider. Discuss any questions related to medications with your provider. Medications to Continue with No Changes These medications were not printed or sent to your pharmacy Acetaminophen (Tylenol 325 mg oral tablet) 2 tab(s) Oral every 6 hours. Next Dose: Albuterol (albuterol 90 mcg/inh inhalation powder) 2 [...] (Lantus Solostar Pen 100 units/mL subcutaneous solution) 14 unit(s) Subcutaneous Infusion. 12 units. Next Dose: Lactulose (lactulose 10 gm/15 ml [...] needed as needed for pain. Next Dose: PEG Electrolyte Solution (MiraLax) 17 gram Oral Daily. Next Dose: Tamsulosin (Flomax 0.4 mg oral capsule) 1 capsule Oral Daily. Next Dose: Tiotropium (Spiriva HandiHaler 18 mcg Inhalation Capsule) 18 Microgram Inhalation Daily. Next Dose: Allergy Info:?? NKA Medications Given This Visit Future Orders ?No future orders Vital Signs Height 165 cm Weight 62.4 kg BMI 22.92 kg/m2 Blood Pressure 110 mm Hg/80 mm Hg Temperature Pulse Rate 86 bpm Respiratory Rate 02 Sat Mode of Delivery 93 %/Room air You can now view a summary of your hospital visit from the comfort of your home through a free online portal called [employer]. [employer] is a website that allows you to securely view your medical information including discharge summary, medications and follow-up visits. ??You can alsosend a secure electronic message to your doctor???s office to request appointments, renew medications or just ask a question. You can enroll at [email or web address] or register during your next office [...] primary care provider, you may find a [facility] provider by calling [facility] Link at [phone]. For information about the plan of care [...] Team Personnel Name: Susan Kearney RN Position: [facility] RN Member Role: Primary Care Nurse Name: Lucius Lott RN Position: [facility] RN Member Role: Primary Care Nurse Name: Naheed Gardner RN Position: [facility] SN RN Member Role: Primary Care Nurse Name: Tramaine MEDELLIN, May Position: [facility] RN Member Role: Primary Care Nurse Name: Allison Carney RN Position: [facility] RN Member Role: Primary Care Nurse Name: Dayanara Martinez RN Position: [facility] SN RN Member Role: Primary Care Nurse Name: Ashley Lew RN Position: [facility] RN Member Role: Primary Care Nurse Name: Juanjose Flynn MD Position: [facility] Outreach Member Role: PCP Address: Address: [address] [place] [address]- Care Team Related Persons Name: JEWELL ALVARADO Address: home [address] [place] [address] Name: ODETTE ACOSTA Address: [address] [place] [address] Name: JONATHAN ACOSTA
[2022-07-29] MEDS: fentaNYL citrate/PF 100 MCG/2 ML VIAL 50 MCG IVPUSH ×2 (12:03→14:44)
[2022-07-29] MEDS: cefTRIAXone sodium 1 GM in 0.9 % Sodium Chloride 50 ML IV (12:37)
[2022-07-29] MEDS: propofoL 200 MG/20 ML VIAL 100 MG IVPUSH (13:15)
--- NOTE | 2022-07-29 14:29 | ECG_ITS ---
Test Reason : FALL Blood Pressure : / mmHG Vent. Rate : 068 BPM Atrial Rate : 080 BPM P-R Int : 156 ms QRS Dur : 098 ms QT Int : 406 ms P-R-T Axes : 086 -04 -17 degrees QTc Int : 431 ms Sinus rhythm with marked sinus arrhythmia with occasional Premature ventricular complexes Cannot rule out inferior infarct. Abnormal ECG When compared with ECG of 20-OCT-2015 17:38, Premature ventricular complexes are now Present Vent. rate has decreased BY [address] no longer depressed in Anterolateral leads T wave inversion now evident in Inferior leads Cannot rule out inferior infarct Referred By: Essie Roldan Electronically Signed By:Toy Luna
[2022-07-29] MEDS: cephALEXin 500 MG CAPSULE PO ×2 (14:44→21:08)
[2022-07-29 15:32] LABS: Basophils Absolute Auto 0.1 X10*3/uL (0.0-0.2); Eosinophils Absolute Auto 0.3 X10*3/uL (0.0-0.4); Eosinophils Percent Auto 2.6 % (0-4); Hematocrit 31.5 % (42.0-52.0); Hemoglobin 10.4 g/dl (14.0-18.0); Imm Gran Abs Auto 0.05 X10*3/uL (0.00-0.03); Imm Gran Pct Auto 0.5 % (0.0-0.4); Lymphocytes Absolute Auto 1.6 X10*3/uL (1.2-4.9); Lymphocytes Percent Auto 14.2 % (20-40); MANUAL DIFF FLAG NO; Mean Corpuscular Hemoglobin 28.1 pg (27.0-33.0); Mean Corpuscular Volume 85.1 fL (80.0-98.0); Mean Platelet Volume 7.7 fL (9.4-12.4); Monocytes Percent Auto 9.3 % (2-11); Neutrophils Percent Auto 72.4 % (45-73); Platelet Count 397 X10*3/uL (160-400); Red Cell Distribution Width 15.3 % (11.0-16.0)
[2022-07-29 15:45] LABS: Alanine Aminotransferase 21 U/L (0-40); Albumin Level 3.5 g/dL (3.5-5.0); Alkaline Phosphatase 131 U/L (39-117); Anion Gap 12 (12-20); Aspartate Amino Transferase 26 U/L (5-37); Bilirubin Total 0.3 mg/dL (0.0-1.0); Blood Urea Nitrogen 16 mg/dL (9-16); Calcium 9.3 mg/dL (8.4-10.2); Carbon Dioxide 29 mmol/L (22-29); Chloride 93 mmol/L (96-108); Creatinine Clr Calc Pharmacy 65.7; Estimated Glomerular Filt Rate > 60; Glucose Random 80 mg/dL (60-115); Potassium 4.4 mmol/L (3.3-5.1); Sodium 130 mmol/L (135-145); Total Protein 5.9 g/dL (6.5-8.0)
--- NOTE | 2022-07-29 16:30 | MHC.EDTECH ---
this pct assumed care of pt at 1630 ,vitals sign taken ,pt was boosted up in bed warm blanket given ,pt watching television .
--- NOTE | 2022-07-29 16:52 | PHA.MEDREC ---
Pharmacy Consult ? Medication Reconciliation Pharmacy has completed the medication reconciliation. spoke with patient. He had an at home list for his non-[facility] medications. He is still on a course of amoxicillin. [facility] Patient confirmed Lantus 12 units every morning.
[2022-07-29] MEDS: oxyCODONE HCl Immed Release 5 MG TABLET PO ×2 (17:36→18:39)
[2022-07-29] MEDS: Acetaminophen 325 MG TABLET 975 MG PO (18:40)
--- NOTE | 2022-07-29 18:55 | MHC.EDTECH ---
PT BLOOD SUGAR CHECK ,LACIE KATE AWARE OF 61 THE RESULT ,PT IS HAVING HIS DINNER ,WARM BLANKET GIVEN ,VITALS SIGN TAKEN .
--- NOTE | 2022-07-29 19:17 | MHC.EDTECH ---
PT BLOOD SUGAR CHECK IT WAS 61 ,PATIENT ate 50 % OF SUPPER ,DRANK 240 ML APPLE JUICE ,AFTER DINNER ,PT BLOOD SUGAR RECHECK IT WAS 59 ,RN HUMBLE AND CHRIS AWARE ,PT WAS GIVEN A TUNA FISH SANDWICH AND 240 ML APPLE JUICE WITH 4 PACKET OF SUGAR ,WILL RE CHECK .
--- NOTE | 2022-07-29 19:37 | MHC.EDTECH ---
blood sugar re check it 87 ,rn montse is aware .
[2022-07-29 19:42] LABS: Glucose, Whole Blood 87 mg/dL (60-115)
[2022-07-29 19:42] LABS: Glucose, Whole Blood 59 mg/dL (60-115)
[2022-07-29 19:42] LABS: Glucose, Whole Blood 61 mg/dL (60-115)
--- NOTE | 2022-07-29 21:41 | MHC.EDTECH ---
RN CHRIS IS AWARE OF PT BS OF 199 ,VITALS SIGN TAKEN ,WARM BLANKET AND PILLOW GIVEN ,PT WATCHING TELEVISION .
[2022-07-29 22:19] LABS: Glucose, Whole Blood 199 mg/dL (60-115)
[2022-07-30] VITALS (7 sets, daily range): BP systolic 132–160; BP diastolic 48–69; PULSE 76–89; RESP 15–19; TEMP 36.6–37.1; O2SAT 94–99
[2022-07-30] MEDS: oxyCODONE HCl Immed Release 5 MG TABLET PO ×4 (00:49→18:29)
--- NOTE | 2022-07-30 00:53 | PC.NURSE ---
administered oxycodone 5mg po PRN per APR for pt's 11/28 pain
[2022-07-30] MEDS: cephALEXin 500 MG CAPSULE PO ×4 (03:25→21:08)
--- NOTE | 2022-07-30 06:56 | PC.NURSE ---
VSS no apparent distress aox4 resting quietly, while watching tv
[2022-07-30 07:31] LABS: Glucose, Whole Blood 170 mg/dL (60-115)
--- NOTE | 2022-07-30 09:37 | MHC.CM.PN ---
PT CARLOS RECOMMENDS STR [facility] HAS [facility] [employer] CASE MANAGEMENT ATTEMPTED TO MEET WITH PATIENT HE IS ASKING RN TO CALL HIS DAUGHTER (WHO WORKS HERE) PATIENT CURRENTLY WITH RN HE IS AWARE THAT CASE MANAGEMENT WILL RETURN FOR DC DISCUSSION
--- NOTE | 2022-07-30 10:18 | MHC.CM.PN ---
Addendum entered by Naheed Francisco RN 07/30/22 16:25: DAUGHTER, JEWELL [phone] ASKS FOR A REFERRAL TO [facility], WHERE HE WAS DC FROM [facility] ONE MONTH PRIOR. PATIENT WAS ALSO RECENTLY DC FROM [facility] AND REQUESTS A REFERRAL TO [facility] IN THE EVENT PATIENT DOES DC HOME ([facility] REFERRALS PLACED. WILL NEED COPY OF HCP, WHICH IS DAUGHTER JEWELL BELIEVES PATIENT MAY HAVE MISSED HIS [facility] VISIT AND IS HOPING HE CAN SEE THE RN WHILE HERE. PATIENT HAS A WALKER IN THE HOME Original Note: PATIENT WANTS TO WAIT FOR HIS DAUGHTER BEFORE MAKING DC DECISION. CASE MANAGEMENT AVAILABLE AND WILL CHECK BACK IN.
[2022-07-30] MEDS: Acetaminophen 325 MG TABLET 975 MG PO ×2 (10:33→16:52)
[2022-07-30 11:43] LABS: Glucose, Whole Blood 194 mg/dL (60-115)
[2022-07-30] MEDS: Sucralfate 1 GM TABLET PO ×2 (12:10→22:34)
[2022-07-30] MEDS: Insulin Lispro 100 UNIT/ML 3 ML VIAL SUBCUT ×2 (12:10→21:08)
[2022-07-30] MEDS: Amoxicillin/Potassium Clav 875 MG TABLET PO ×2 (12:10→22:34)
[2022-07-30] MEDS: Gabapentin 100 MG CAPSULE PO ×2 (15:49→21:08)
[2022-07-30 16:37] LABS: Glucose, Whole Blood 118 mg/dL (60-115)
--- NOTE | 2022-07-30 17:25 | PC.NURSE ---
Assumed care at 1500- Patient sitting up in bed, alert and oriented x3. Patient reports pain 8/10, right arm. Essie PRINCE made aware.Tylenol 975mg PRN ordered and given per EMAR. Patient using urinal. POC 118, no coverage needed. All needs met at this time.
--- NOTE | 2022-07-30 19:12 | MHC.EDTECH ---
t/w assisted pt w/urinal d/t right wrist fx
[2022-07-30 20:57] LABS: Glucose, Whole Blood 171 mg/dL (60-115)
[2022-07-30] MEDS: Atorvastatin Calcium 80 MG TABLET PO (21:07)
[2022-07-30] MEDS: Famotidine 20 MG TABLET PO (21:08)
--- NOTE | 2022-07-30 21:52 | MHC.EDTECH ---
pt informed t/w he prefers to take his pills in applesauce. rn aware
--- NOTE | 2022-07-30 22:08 | PC.NURSE ---
Pt A&Ox3, forgetful, calm & cooperative. VSS, on ra, uses urinal. Pt has sling on R-arm, +csm. Denies pain, took all pm meds. HS BG 171, received 2 U sc insulin. Bed alarm on, call light within reach, safety prec maintained.
[2022-07-31] MEDS: cephALEXin 500 MG CAPSULE PO ×4 (03:19→20:54)
[2022-07-31 05:10] VITALS: BP 138/61; PULSE 88; RESP 17; TEMP 36.2; O2SAT 95
[2022-07-31 08:00] LABS: Glucose, Whole Blood 164 mg/dL (60-115)
[2022-07-31] MEDS: Tamsulosin HCL 0.4 MG CAPSULE PO (08:23)
[2022-07-31] MEDS: Sucralfate 1 GM TABLET PO ×4 (08:23→20:54)
[2022-07-31] MEDS: Bisoprolol Fumarate 5 MG TABLET PO (08:23)
[2022-07-31] MEDS: Famotidine 20 MG TABLET PO ×2 (08:23→20:54)
[2022-07-31] MEDS: Gabapentin 100 MG CAPSULE PO ×3 (08:23→20:54)
[2022-07-31] MEDS: Aspirin Enteric Coated 81 MG TABLET.DR PO (08:23)
[2022-07-31] MEDS: Multivitamin TABLET 1 TAB PO (08:23)
[2022-07-31] MEDS: Amoxicillin/Potassium Clav 875 MG TABLET PO ×2 (08:23→20:54)
[2022-07-31] MEDS: Insulin Lispro 100 UNIT/ML 3 ML VIAL SUBCUT ×3 (08:23→20:54)
[2022-07-31] MEDS: Insulin Glargine,Hum.rec.anlog 100 UNIT/ML 10 ML VIAL 12 UNIT SUBCUT (08:24)
[2022-07-31] MEDS: oxyCODONE HCl Immed Release 5 MG TABLET PO ×3 (08:38→21:35)
[2022-07-31 11:41] LABS: Glucose, Whole Blood 166 mg/dL (60-115)
[2022-07-31 13:11] VITALS: BP 107/54; PULSE 81; RESP 17; TEMP 36.6; O2SAT 96
--- NOTE | 2022-07-31 13:52 | MHC.CM.ED ---
Patient remains in ER overflow. Physical therapy recs [facility] can [facility] due to medical complexity. Patient was supposed to have vascular surgery on 08/08. Patient's daughter, Tristian, has already called Dr Woo's office to let doctor know that patient will need STR. Patient is also active with [facility] [place] [place] woun clinic. [address] [place] [address] and [facility] are able to offer a bed. Per Tristian, [facility] is 1st choice. [facility] has been asked to go for ins auth. Continue to monitor for d/c needs.
[2022-07-31 16:42] LABS: Glucose, Whole Blood 102 mg/dL (60-115)
--- NOTE | 2022-07-31 17:19 | PC.NURSE ---
Pt A/Ox3, pleasant and cooperative with care. Right arm in cast/acewrap and sling. Reporting pain, prn oxy given per MAR with +effect. CM involved working on dispo plan. Daughter updated over the phone. Will continue to monitor.
--- NOTE | 2022-07-31 17:41 | MHC.EDTECH ---
Checked patients blood sugar. Then brought patients dinner tray and assist in opening can.
[2022-07-31] MEDS: Atorvastatin Calcium 80 MG TABLET PO (20:54)
[2022-07-31 20:55] LABS: Glucose, Whole Blood 196 mg/dL (60-115)
[2022-07-31 22:00] VITALS: BP 134/57; PULSE 78; RESP 16; TEMP 37.1; O2SAT 95
--- NOTE | 2022-07-31 23:03 | MHC.EDTECH ---
Gave patient a cup of water and helped patient get comfortable in bed.
[2022-07-31] MEDS: Acetaminophen 325 MG TABLET 975 MG PO (23:23)
[2022-08-01] MEDS: cephALEXin 500 MG CAPSULE PO ×2 (03:35→07:59)
[2022-08-01] MEDS: oxyCODONE HCl Immed Release 5 MG TABLET PO ×2 (03:35→11:35)
[2022-08-01 06:00] VITALS: BP 124/57; PULSE 90; RESP 20; TEMP 36.6; O2SAT 94
[2022-08-01 07:17] VITALS: BP 123/60; PULSE 77; RESP 19; TEMP 36.6; O2SAT 96
[2022-08-01 07:35] LABS: Glucose, Whole Blood 143 mg/dL (60-115)
[2022-08-01] MEDS: Insulin Glargine,Hum.rec.anlog 100 UNIT/ML 10 ML VIAL 12 UNIT SUBCUT (07:58)
[2022-08-01] MEDS: Sucralfate 1 GM TABLET PO ×2 (07:59→11:35)
[2022-08-01] MEDS: Tamsulosin HCL 0.4 MG CAPSULE PO (07:59)
[2022-08-01] MEDS: Bisoprolol Fumarate 5 MG TABLET PO (07:59)
[2022-08-01] MEDS: Aspirin Enteric Coated 81 MG TABLET.DR PO (07:59)
[2022-08-01] MEDS: Amoxicillin/Potassium Clav 875 MG TABLET PO (07:59)
[2022-08-01] MEDS: Famotidine 20 MG TABLET PO (07:59)
[2022-08-01] MEDS: Gabapentin 100 MG CAPSULE PO (07:59)
[2022-08-01] MEDS: Multivitamin TABLET 1 TAB PO (07:59)
[2022-08-01] MEDS: Fluticasone/Vilanterol 200/25 BLST.W.DEV 1 PUFF INHALE (08:06)
[2022-08-01 11:32] LABS: Glucose, Whole Blood 174 mg/dL (60-115)
[2022-08-01] MEDS: Acetaminophen 325 MG TABLET 975 MG PO (11:34)
[2022-08-01] MEDS: Insulin Lispro 100 UNIT/ML 3 ML VIAL SUBCUT (11:36)
--- NOTE | 2022-08-01 12:46 | MHC.CM.ED ---
Patient remains in Er overflow. Insurance auth has been obtained by [facility]. Patient can leave at 130pm. [facility] booked. Med nec with chart. No HCP on file. HCP completed, signed and witnessed. Original given to patient. Copy placed in chart. Per Lavern Lira, follow up appointment should be next week. Appointment arranged for 08/09 at 10am. Patient's daughter, Tristian aware. [facility] made aware. Patient, daughter Tristian, Tristian RN and Kimi PRINCE aware. Continue to monitor for d/c needs.
[2022-08-01 13:19] LABS: COVID-19 Test Negative (Negative); IDNOW Serial# 55D5AD1C
--- NOTE | 2022-08-01 13:31 | PC.NURSE ---
Pt A/Ox3, pleasant and cooperative with care. Right arm in cast/acewrap and sling. +CMS, able to wiggle fingers. Reporting pain, prn oxy and tylenol given per MAR with +effect. [facility] Daughter present at time of d/c and paperwork gone over with pt and dtr. Advised on calling Ortho office for follow up appt. Both verbalized understanding. Belongings sent home with pts dtr.
== END 2022-08-01 13:30 | disposition skilled nursing facility (03) ==
PROVIDERS: Physician Assistant; Physician Assistant Medical; Emergency Provider Emergency Medicine; PCP Internal Medicine
DX: S52.611A Displaced fracture of right ulna styloid process, initial encounter for closed fracture (principal); S52.591A Other fractures of lower end of right radius, initial encounter for closed fracture; W17.89XA Other fall from one level to another, initial encounter; R53.81 Other malaise; Y93.89 Activity, other specified; Y92.030 Kitchen in apartment as the place of occurrence of the external cause; Y99.9 Unspecified external cause status
CPT/HCPCS: 25605; 36415; 73090; 73100; 73110; 73130; 80053; 82947; 85025; 87635; 93005; 96365; 96375; 96376; 97162; 99285; J0696; J3010

== ENCOUNTER 2022-08-09 10:18 | Outpatient (REF) | payer MEDICARE, SELFPAY ==
--- NOTE | ~2022-08-09 | XR_ITS ---
EXAMINATION: XR WRIST, RIGHT CLINICAL INFORMATION: Pain. COMPARISON: Prior radiographs dated 08/09/2022 and earlier. TECHNIQUE: A lateral view of the right wrist is submitted. FINDINGS: Fine bony detail is limited by overlapping cast material. A distal radial fracture is redemonstrated, now in true lateral projection. The distal radial fracture fragment shows approximately 3 mm of posterior displacement. Tiny comminution fragments are noted. No dislocation is seen. There are atherosclerotic calcifications. XR/XR wrist RT 2V IMPRESSION: True lateral view of the right wrist shows 3 mm of posterior displacement of the patient's distal radial fracture.
--- NOTE | ~2022-08-09 | XR_ITS ---
EXAMINATION: XR WRIST, RIGHT CLINICAL INFORMATION: Pain. COMPARISON: Radiographs dated 07/29/2022. TECHNIQUE: PA, lateral, and oblique views of the right wrist. FINDINGS: Overlapping cast material obscures fine bony detail. There is stable alignment of a mildly displaced Colles' fracture fragments. No new callus formation is noted, and there are persistent fracture lines. No dislocation is seen. The proximal and distal carpal rows are intact. There are diffuse atherosclerotic calcifications. XR/XR wrist RT min 3V IMPRESSION: There is stable alignment of Colles' fracture fragments.
== END 2022-08-09 10:19 | disposition home or self-care (01) ==
LOC: HO.HOSX 10:18
PROVIDERS: Visit Provider Physician Assistant
DX: S52.501A Unspecified fracture of the lower end of right radius, initial encounter for closed fracture (principal)
CPT/HCPCS: 25600; 73100; 73110; 99202

== ENCOUNTER 2022-08-16 09:36 | Outpatient (REF) | payer MEDICARE, SELFPAY ==
--- NOTE | ~2022-08-16 | XR_ITS ---
EXAMINATION: XR WRIST, RIGHT CLINICAL INFORMATION: Right wrist pain. COMPARISON: 08/09/2022 and 07/29/2022 TECHNIQUE: PA, lateral, and oblique views of the right wrist. FINDINGS: There is diffuse osteopenia of visualized bones. There are again noted to be fractures involving the distal right radius and ulnar bones. There has been no change in alignment identified and there is neutral radiocarpal joint angulation. No significant periosteal new bone formation is appreciated. There appears to have been some bony resorption at the fracture lines with some adjacent sclerosis. Prominent vascular calcifications are present. No dislocation evident. XR/XR wrist RT min 3V IMPRESSION: No significant change in alignment or appearance of distal radial and ulnar fractures. Diffuse osteopenia.
== END 2022-08-16 09:37 | disposition home or self-care (01) ==
LOC: HO.HOSX 09:36
PROVIDERS: Visit Provider Orthopaedic Surgery
DX: S52.501A Unspecified fracture of the lower end of right radius, initial encounter for closed fracture (principal); S52.601A Unspecified fracture of lower end of right ulna, initial encounter for closed fracture; X58.XXXA Exposure to other specified factors, initial encounter; Y93.9 Activity, unspecified; Y92.9 Unspecified place or not applicable; Y99.9 Unspecified external cause status
CPT/HCPCS: 29075; 73110

== ENCOUNTER 2022-08-29 14:40 | Outpatient (AMB) | payer MEDICARE, SELFPAY ==
--- OUTSIDE RECORDS SUMMARY | 2022-08-29 14:42 | XMS_ITS | Continuity of Care Document ---
Author Name Unknown Organization [facility] Address [address] [place] [address]- Care Team Providers Care Crane Crew Supervisor Name Role Phone Rina WEBBER, Juanjose Em Primary Care Physician [place] [facility] [place] 07/12/22 - 08/11/22 [facility] [address] [place], [place] [address] Attending Physician: Mary Stone Admitting Physician: Mary Stone Referring Physician: AdmtrMary Allergies, Adverse Reactions, Alerts No Known Allergies [...] tablet, 3 Refills, Maintenance, Route to PharmacyElectronically, [id number], [facility]/pharmacy #[id number] Start Date: 06/25/18 Stop Date: 06/20/19 [...] H ealth Status Informant CAD in [place] artery Confirmed Active Diabetes Confirmed Active Essential [...] Care Nurse Name: Naheed Gardner RN Position: [facility] RN Member Role: Primary Care Nurse Name: Tramaine MEDELLIN, Y[place] Position: [facility] RN Member Role: Primary Care Nurse Name: Allison Carney RN Position: [facility] RN Member Role: Primary Care Nurse Name: Dayanara Martinez RN Position: [facility] SN RN Member Role: Primary Care Nurse Name: Ashley Lew RN Position: [facility] RN Member Role: Primary Care Nurse Name: Juanjose Flynn MD Position: [facility] Outreach Member Role: PCP Address: Address: [address] [place] [address]- [place] Care Team Related Persons Name: JEWELL ALVARADO Address: home [address] [place] [address] Name: ODETTE ACOSTA Address: [address] [place] [address] Name: JONATHAN ACOSTA
--- OUTSIDE RECORDS SUMMARY | 2022-08-29 14:42 | XMS_ITS | Continuity of Care Document ---
Author Name Unknown Organization [facility] Address [address] [place] [address]- Care Team Providers Care Planned Giving Officer Name Role Phone Rina WEBBER, Juanjose Em Primary Care Physician [place] [facility] [facility] [place] - 08/11/22 [facility] [address] [place] [address] Allergies, Adverse Reactions, Alerts No Known Allergies [...] tablet, 3 Refills, Maintenance, Route to PharmacyElectronically, [id number], [facility]/pharmacy #[id number] Start Date: 06/25/18 [...] Status H ealth Status Informant CAD in [place] artery Confirmed Active Diabetes Confirmed Active Essential [...] Name: Susan Kearney RN Position: [facility] RN Member Role: Primary Care Nurse Name: Lucius Lott RN Position: [facility] RN Member Role: Primary Care Nurse Name: Naheed Gardner RN Position: [facility] RN Member Role: Primary Care Nurse Name: Tramaine MEDELLIN, May Position: [facility] RN Member Role: Primary Care Nurse Name: Allison Carney RN Position: [facility] RN Member Role: Primary Care Nurse Name: Dayanara Martinez RN Position: [facility] SN RN Member Role: Primary Care Nurse Name: Ashley Lew RN Position: [facility] RN Member Role: Primary Care Nurse Name: Juanjose Flynn MD Position: [facility] Outreach Member Role: PCP Address: Address: [address] [place] [address]- Care Team Related Persons Name: JEWELL ALVARADO Address: home [address] [place] [address] Name: ODETTE ACOSTA Address: [address] [place] [address] Name: JONATHAN ACOSTA
--- OUTSIDE RECORDS SUMMARY | 2022-08-29 14:43 | XMS_ITS | Patient Health Record ---
Author Name Unknown [facility] Address [address] [place] [address] Care Team Providers Care Bilingual Customer Service Specialist Name Role Phone Juanjose Flynn Primary Care Provider Elizabeth Finneygaurav Nydia Unavailable [phone] ChaseCody marion Unavailable [phone] ALLERGIES No Known Allergies RESULTS Component Value Reference Range Notes HEMOGLOBIN A1C (GLYCOHEMOGLO BIN) Reviewed date:04/05/2022 01:40:27 PM Interpretation: Performing Lab: Notes/Report: TOTAL HEMOGLOBIN (HGBA1C) HEMOGLOBIN A1C (HH) 6.9 HEMOGLOBIN A1C % (HH) ESTIMATED AVG GLUCOSE REASON FOR REFERRAL No Information MEDICATIONS Medication SIG (Take, Route, Frequency, Duration) Notes Start Date End Date Status Lactulose 10 GM/15ML Oral for 90 Active Extra Depth Orthopedic Shoes (1 Pair) with Customized Heat Molded Multidensity Innersoles (3 Pair) as directed Dx: NIDDM/PVD (E11.59), Hammertoe Foot Deformity (M20.41,M20.42), Preulcerative Skin Lesion(s) (L85.1) Active Cephalexin 500 MG 1 capsule Orally every 12 hrs for 10 day(s) Not-Taking oxyCODONE HCl 10 MG (Schedule II Drug) Oral for 28 Active Spiriva Respimat 2 puffs once per day Active Atorvastatin Calcium 80 MG Oral for 90 Active Bisoprolol Fumarate 5 MG Oral for 90 Active Albuterol Sulfate 1 puff as needed Active Keflex 500 MG 1 capsule Orally every 12 hrs for 10 day(s) 04/05/2022 Active Ammonium Lactate 12 % 1 application to affected area Externally to feet Twice a day for 30 days Active Mupirocin 2 % 1 application Externally Once or Twice a day for 30 days 04/05/2022 Active Famotidine 20 MG Oral for 90 A ctive Insulin novalog / lantus 16 units daily Active IMMUNIZATIONS Vaccine Route Administration Date Status Commhi nts COVID-19 Moderna Vaccine Unknown 12/20/2020 Administered 1st 04/13/20 2nd 05/11/20 Influenza Unknown 11/16/2020 Refused SOCIAL HISTORY Tobacco Use: Social History Observation Description Date Details (start date - stop date) Former Smoker NA - 08/03/1990 Sex Assigned At : Social History Observation Description Sex Assigned At Unknown Tobacco Use/Smoking Question Answer Notes Are you a: former smoker When did you stop smoking? 08/03/1990 Additional Findings: Tobacco Non-User Ex-cigaret te smoker Alcohol Screen Question Answer Notes Did you have a drink contain ing alcohol in the past year? Yes How often did you have a dri nk containing alcohol in the past year? Monthly or less (1 point) Points 1 Interpretation Negative Tobacco use other than smoking: Question Answer Notes Are you an other tobacco user? No PROBLEMS Problem Type ICD Code Onset Dates Problem Status W/U Status Risk SNOMED Code Notes Problem Other hammer toe(s) (acquired), right foot (M20.41) Active confirmed Acquired hammer toe of right foot (5258499490407948) Problem Type 2 diabetes mellitus with diabetic peripheral angiopathy without gangrene (E11.51) Active confirmed Type 2 cristina betes mellitus with peripheral angiopathy (744074520) Problem Other hammer toe(s) (acquired), left foot (M20.42) Active confirmed Acquired hammer toe of left foot (5368849674442908) Problem Plantar wart (B07.0) Active confirmed Plantar wart (35227625) Problem 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) Active confirmed Chronic ulcer o f foot (618266810) Problem 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) Active confirmed 10990137393514194 Problem Non-pressure ulcer of left lower extremity, limited to breakdown of skin (L97.921) Active confirmed 59580257 Problem Non-pressure ulcer of right lower extremity, limited to breakdown of skin (L97.911) Active confirmed 38013551 Problem Atherosclerosis of artery of both lower extremities (I70.203) Active confirmed 10997008115029810 Encounters Encounter Location Date Provider Diagnosis [address] [address] 09/16/2021 [facility] [address] [address] 10/04/2021 Cody Stone Type 2 diabetes mellitus with diabetic peripheral angiopathy without gangrene E11.51 ; Plantar wart B07.0 ; Tinea unguium B35.1 ; Pain in right toe(s) M79.674 ; Pain in left toe(s) M79.675 ; Pain in right foot M79.671 ; Other hammer toe(s) (acquired), right foot M20.41 and Other hammer toe(s) (acquired), left foot M20.42 [facility] [address] [place] [address] 11/21/[address] [address] 12/16/[address] [address] [facility] [address] 12/30/[address] [address] 01/20/2022 Cody Stone Type 2 diabetes mellitus with diabetic peripheral angiopathy without gangrene E11.51 ; Plantar wart B07.0 ; Tinea unguium B35.1 ; Pain in right toe(s) M79.674 ; Pain in left toe(s) M79.675 ; Pain in right foot M79.671 ; Cutaneous abscess of left foot L02.612 and Cellulitis of left lower limb L03.[address] [place] [address] 02/24/2022 Cody [facility] [address] [address] 04/05/2022 Nydia Perica [facility] [address] [address] 04/05/2022 Nydia Perica Non-pressure chronic ulcer of right heel and [...] extremity, limited to breakdown of skin L97.911 [facility] [address] [address] 04/05/2022 Nydia Perica [facility] [place] [address] [place] [address] 04/06/2022 Nydia Perica [facility] [address] [address] 04/06/2022 Nydia Perica [facility] [address] [address] 04/06/2022 Nydia Perica [facility] [address] [address] 04/07/2022 Nydia Perica [facility] [address] [address] 04/10/2022 Nydia Perica [facility] [address] [address] 04/14/2022 Nydia Perica [facility] [address] [address] 04/14/2022 Cody Stone [facility] [address] 04/17/2022 Nydia Perica [facility] [address] [address] 06/13/2022 Nydia Perica [facility] [address] [address] 06/20/2022 Nydia Burden [facility] [place] [address] [place] [address] 06/20/2022 Nydia Burden ASSESSMENTS Encounter Date Diagnosis Assessment Notes Treatment Notes Treatment Clinical Notes 10/04/2021 Type 2 diabetes mellitus with diabetic peripheral angiopathy without gangrene (ICD-10 - E11.51) 10/04/2021 Plantar wart (ICD-10 - B07.0) 01/20/2022 Type 2 diabetes mellitus with diabetic peripheral angiopathy without gangrene (ICD-10 - E11.51) 01/20/2022 Plantar wart (ICD-10 - B07.0) 04/05/2022 Non-pressure 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 (ICD9-CM - L97.412) 04/05/2022 Cellulitis of right foot (ICD-10 - L03.115) 04/05/2022 Type 2 diabetes mellitus with diabetic peripheral angiopathy without gangrene (ICD-10 - E11.51) 01/20/2022 Tinea unguium (ICD-1 0 - B35.1) 10/04/2021 Tinea unguium (ICD-1 0 - B35.1) 10/04/2021 Pain in right toe(s) (ICD-10 - M79.674) 01/20/2022 Pain in right toe(s) (ICD-10 - M79.674) 04/05/2022 Atherosclerosis of artery of both lower extremities (ICD-10 - I70.203) 04/05/2022 Non-pressure ulcer o f left lower extremity, limited to breakdown of skin (ICD-10 - L97.921) 01/20/2022 Pain in left toe(s) (ICD-10 - M79.675) 10/04/2021 Pain in left toe(s) (ICD-10 - M79.675) 10/04/2021 Pain in right foot (ICD-10 - M79.671) 01/20/2022 Pain in right foot (ICD-10 - M79.671) 04/05/2022 Non-pressure ulcer o f right lower extremity, limited to breakdown of skin (ICD-10 - L97.911) 01/20/2022 Cutaneous abscess of left foot (ICD-10 - L02.612) 10/04/2021 Other hammer toe(s) (acquired), right foot (ICD-10 - M20.41) 10/04/2021 Other hammer toe(s) (acquired), left foot (ICD-10 - M20.42) 01/20/2022 Cellulitis of left lower limb (ICD-10 - L03.116) PLAN OF TREATMENT Pending Test Test Name Order Date 67800-VOHAZXI NAIL, 6 OR MORE 11/16/2020 78650-BNEUWFS NAIL, 6 OR MORE 01/25/2021 46326-JQKSEJZ NAIL, 6 OR MORE 04/26/2021 76020-JXSILDS NAIL, 6 OR MORE 07/01/2021 49488-QQABNTO NAIL, 6 OR MORE 10/04/2021 98716-MUFBYZY NAIL, 6 OR MORE 01/20/2022 93792-Lumr Destruction, 1-14 01/20/2022 88419-Uwnv Destruction, 1-14 10/04/2021 05262-Ypaf Destruction, 1-14 07/01/2021 43754-Dmbs Destruction, 1-14 04/26/2021 07766-Smiw Destruction, 1-14 01/25/2021 20875-Lbax Destruction, 1-14 11/16/2020 95738-Pbivvssa Plate 07/01/2021 78598 I&D ABSCESS- SIMPLE,SINGLE 022 48447-BWSL SKIN LESIONS, OVER 4 10/05/19 22 26816-DJIF SKIN LESIONS, OVER 4 01/21/20 22 44440-YPKO SKIN LESIONS, OVER 4 11/17/19 21 56889-TCRR SKIN LESIONS, OVER 4 01/26/20 21 59436-TQMF SKIN LESIONS, OVER 4 04/27/19 22 26820-AFCX SKIN LESIONS, OVER 4 07/02/19 22 47966-QITS SKIN LESIONS, 2 TO 4 08/25/19 21 Insurance Providers Payer Name Payer Address Payer Phone Subscriber Number Group Number Insured Name Patient Relationship to Insured Coverage Start Date Coverage End Date [employer] [address] [place] [address] [phone] [id number] Vargas Ashton Self - patient is the insured MEDICAL (GENERAL) HISTORY Medical History History ICD Code Measles Mumps Chicken pox Joint implants/screws type II diabetes COPD Surgical History Surgery Date(Month/Year) spinal stenosis surgery 1994 Broken/Fracture Leg 2017
--- OUTSIDE RECORDS SUMMARY | 2022-08-29 14:43 | XMS_ITS | Continuity of Care Document ---
Author Name Unknown Organization [facility] Address [address] [place] [address]- Care Team Providers Care Nutrition Services Worker Name Role Phone Rina WEBBER, Juanjose Em Primary Care Physician [place] [facility] [place] - 08/18/22 [facility] [address] [place] [address]- Allergies, Adverse Reactions, Alerts No Known Allergies [...] tablet, 3 Refills, Maintenance, Route to PharmacyElectronically, [id number], [facility]/pharmacy #1230 Start Date: 06/25/18 Stop Date: [...] Status H ealth Status Informant CAD in [place] artery Confirmed Active Diabetes Confirmed Active Essential [...] Team Personnel Name: Susan Kearney RN Position: [facility] RN Member Role: Primary Care Nurse Name: Lucius Lott RN Position: [facility] RN Member Role: Primary Care Nurse Name: Naheed Gardner RN Position: [facility] RN Member Role: Primary Care Nurse Name: Tramaine MEDELLIN, May Position: S RN Member Role: Primary Care Nurse Name: Allison Carney RN Position: [facility] RN Member Role: Primary Care Nurse Name: Dayanara Martinez RN Position: [facility] SN RN Member Role: Primary Care Nurse Name: Ashley Lew RN Position: [facility] RN Member Role: Primary Care Nurse Name: Juanjose Flynn MD Position: [facility] Outreach Member Role: PCP Address: Address: [address] [place] [address] [place] Care Team Related Persons Name: JEWELL ALVARADO Address: home [address] [place] [address] Name: ODETTE ACOSTA Address: home [address] [place] [address] Name: JONATHAN ACOSTA
--- OUTSIDE RECORDS SUMMARY | 2022-08-29 14:43 | XMS_ITS | Continuity of Care Document ---
Author Name Unknown Organization [facility] Address [address] [place] [address]- Care Team Providers Care Drafter Geophysical Name Role Phone Rina WEBBER, Juanjose Em Primary Care Physician [place] [facility] [place] 06/02/22 - 08/23/22 [facility] [address] [place] [address]- Allergies, Adverse Reactions, Alerts No Known Allergies [...] tablet, 3 Refills, Maintenance, Route to PharmacyElectronically, [id number], [facility]/pharmacy #1230 Start Date: 06/25/18 Stop Date: [...] Status H ealth Status Informant CAD in [place] artery Confirmed Active Diabetes Confirmed Active Essential [...] Team Personnel Name: Susan Kearney RN Position: [facility] RN Member Role: Primary Care Nurse Name: Lucius Lott RN Position: [facility] RN Member Role: Primary Care Nurse Name: Naheed Gardner RN Position: [facility] RN Member Role: Primary Care Nurse Name: Tramaine MEDELLIN, May Position: S RN Member Role: Primary Care Nurse Name: Allison Carney RN Position: [facility] RN Member Role: Primary Care Nurse Name: Dayanara Martinez RN Position: [facility] SN RN Member Role: Primary Care Nurse Name: Ashley Lew RN Position: [facility] RN Member Role: Primary Care Nurse Name: Juanjose Flynn MD Position: [facility] Outreach Member Role: PCP Address: Address: [address] [place] [phone]- [place] Care Team Related Persons Name: JENNYJEWELL MERRITT Address: home [address] [place] [address] Name: ODETTE ACOSTA Address: [address] [place] [address] Name: JONATHAN ACOSTA
--- OUTSIDE RECORDS SUMMARY | 2022-08-29 14:43 | XMS_ITS | Continuity of Care Document ---
Author Name Unknown Organization [facility] Address [address] [place] [address]- Care Team Providers Care Marketing Strategy Lead Name Role Phone Rina WEBBER, Juanjose Em Primary Care Physician En[place] [facility] [place] Date(s): 06/19/22 - 08/23/22 [facility] [address] [place] [address]- Allergies, Adverse Reactions, Alerts No Known Allergies [...] tablet, 3 Refills, Maintenance, Route to PharmacyElectronically, [id number], [facility]/pharmacy #1230 Start Date: 06/25/18 Stop Date: 06/20/19 [...] Status H ealth Status Informant CAD in [place] artery Confirmed Active Diabetes Confirmed Active Essential [...] Name: Susan Kearney RN Position: [facility] RN Member Role: Primary Care Nurse Name: Lucius Lott RN Position: [facility] RN Member Role: Primary Care Nurse Name: Naheed Gardner RN Position: [facility] RN Member Role: Primary Care Nurse Name: Tramaine MEDELLIN, May Position: S RN Member Role: Primary Care Nurse Name: Allison Carney RN Position: [facility] RN Member Role: Primary Care Nurse Name: Dayanara Martinez RN Position: [facility] SN RN Member Role: Primary Care Nurse Name: Ashley Lew RN Position: [facility] RN Member Role: Primary Care Nurse Name: Juanjose Flynn MD Position: [facility] Outreach Member Role: PCP Address: Address: [address] [place] [address]- [place] Care Team Related Persons Name: JENNYJEWELL MERRITT Address: home [address] [place] [address] Name: ODETTE ACOSTA Address: home [address] [place] [address] Name: JONATHAN ACOSTA
--- OUTSIDE RECORDS SUMMARY | 2022-08-29 14:43 | XMS_ITS | Continuity of Care Document ---
Author Name Unknown Organization [facility] Address [address] [place] [address]- Care Team Providers Care Dough Brake Machine Operator Name Role Phone Rina WEBBER, Juanjose Em Primary Care Physician Encounter [facility] [place] Date(s): 07/13/22 - 08/12/22 [facility] [address] [place] [address] Allergies, Adverse Reactions, Alerts No Known [...] tablet, 3 Refills, Maintenance, Route to PharmacyElectronically, [id number], [facility]/pharmacy #1230 Start Date: 06/25/18 Stop Date: [...] Status H ealth Status Informant CAD in [place] artery Confirmed Active Diabetes Confirmed Active Essential [...] Team Personnel Name: Susan Kearney RN Position: [facility] RN Member Role: Primary Care Nurse Name: Lucius Lott RN Position: [facility] RN Member Role: Primary Care Nurse Name: Naheed Gardner RN Position: [facility] RN Member Role: Primary Care Nurse Name: Tramaine MEDELLIN, May Position: [facility] RN Member Role: Primary Care Nurse Name: Allison Carney RN Position: [facility] RN Member Role: Primary Care Nurse Name: Dayanara Martinez RN Position: [facility] SN RN Member Role: Primary Care Nurse Name: Ashley Lew RN Position: [facility] RN Member Role: Primary Care Nurse Name: Juanjose Flynn MD Position: [facility] Outreach Member Role: PCP Address: Address: [address] [place] [address]- Care Team Related Persons Name: JEWELL ALVARADO Address: home [address] [place] [address] Name: ODETTE ACOSTA Address: home [address] [place] [address] Name: JONATHAN ACOSTA
--- NOTE | 2022-08-29 14:55 | MHC.OFFVIS ---
Intake Intake Visit Reasons: OV- right wrist fx Intake Note: Vargas 82 yr old male presents today for his follow up visit for his Distal radius fracture, right hand 07/29/22. Cast removed and x-rays updated. States he has pain with finger movement and cont's to have swelling. Denies numbness or tingling. Allergies No Known Allergies [No Known Allergies*] Allergy (Unverified 08/29/22 14:56) HPI OV- right wrist fx HPI Details Vargas is an 82 year old right hand dominant Diabetic man who presents for a follow-up for his right distal radius and ulna Fxs, DOI: 07/29/22. These underwent a closed reduction in the emergency department and have been managed non operatively. He also had a significant skin tear over the dorsal aspect of his distal forearm He is seen today with his daughter. He has been at an inpatient rehab facility. He complains of swelling in the fingers of his right hand and pain with finger range of motion. He currently resides in a rehab center, though he is being discharged soon. He is scheduled for a vein graft bypass surgery a [facility] tomorrow, in attempts to save his left foot. Physical Exam Extrem Other: Evaluation of Right Upper Extremity: The patient is alert, oriented, and in no acute distress Neuro: Sensation felt to be normal to the tips of all digits. Vascular: Cap refill brisk ROM: He has a significant amount of swelling in his hand and fingers from the MCP joints distally. Does not appear that he has been able to work well on moving his fingers and they are therefore significantly stiff We worked on ROM exercises today in clinic for more than 15 minutes. After these exercises he could bring his fingertips actively to about 2-3 cm from his palm and passively to his palm. He does have some mild stiffness in the PIP joints, and complains of pain when we tried place his hand flat on the table. He could bring his elbow ~15-20 degrees from full extension He can flex his elbow to ~115-120 degrees He is holding his hand significantly pronated. We worked on some exercises to also try to bring his forearm into some supination. He was able to get his hand perhaps to about 20 degrees of supination. Good cap refill. Mildly Tender along the fracture site Also tender along the distal shaft of the radius, and both his metacarpals and his fingers with palpation Swelling just distal from where the cast was to his MCP joints Hand radiographs were taken today to assure that he had no fractures before significantly working on range of motion. Radiographs: 3 views of the right wrist were taken and viewed by me today in clinic. They show a right fracture through the metaphysis of the distal radius with some intra-articular extension, as well as a fracture through the ulnar neck, with some loss of inclination, satisfactory fracture alignment, and some evidence of interval bony healing. He is still at neutral on the lateral view. He has some calcification of both radial and ulnar arteries 3 views of the right hand were taken and viewed by me today in clinic. They show some osteopenia but no fractures of the metacarpals or digits. Assessment & Plan Assessment & Plan (1) Distal radius fracture, right: Code(s): S52.501A - Unspecified fracture of the lower end of right radius, initial encounter for closed fracture (2) Right distal ulnar fracture: Code(s): S52.601A - Unspecified fracture of lower end of right ulna, initial encounter for closed fracture Plan Assessment & Plan: 1. Right distal radius fracture 2. Right distal ulnar shaft fracture DOI: 07/29/22 3. Right hand stiffness I educated him about this condition I discussed treatment options We will continue to manage this non-operatively We worked on ROM exercises today in clinic, and I recommend he continue to work on ROM exercises at his residence in a rehab center to reduce his stiffness He will perform these exercises 20x daily. He needs to work on active and passive finger & thumb ROM, elbow flexion & extension, and gentle supination towards neutral I ordered a course of inpatient OT hand therapy for hand ROM only, and wound care for the skin laceration on the dorsum of his forearm, to be done while he is at [facility] recovering from a vein bypass surgery, DOS: 08/30/22 He was fitted for a velcro wrist splint to wear like a cast except for showering and dressing changes, or to work on ROM exercises He will follow up in 4 weeks for a ROM check and new radiographs of his wrist. Please note that greater than 40 minutes was spent with this patient going over the history, evaluating the patient and radiographs, formulating possible treatment options, discussing them with the patient, and documenting the visit. We spent greater than 15 minutes working on ROM exercises in clinic Scribed for Vera Hernandez MD by Mani Valera, district medical examiner, on 08/29/22 at 3:10 PM, EST. Orders: Orders XR wrist RT min 3V Today M25.531 - Pain in right wrist XR hand RT min 3V Today M79.641 - Pain in right hand Coding Level of Care Code Est Pt Level 3 (58176) Diagnoses Distal radius fracture, right S52.501A Right distal ulnar fracture S52.601A
== END 2022-08-29 15:55 | disposition home or self-care (01) ==
PROVIDERS: PCP Internal Medicine; Visit Provider Orthopaedic Surgery
DX: S52.501D Unspecified fracture of the lower end of right radius, subsequent encounter for closed fracture with routine healing (principal); S52.601D Unspecified fracture of lower end of right ulna, subsequent encounter for closed fracture with routine healing
CPT/HCPCS: 99214

== ENCOUNTER 2022-08-29 15:16 | Outpatient (REF) | payer MEDICARE, SELFPAY ==
--- NOTE | ~2022-08-29 | XR_ITS ---
Examination: X-ray hand and wrist, right INDICATION: Pain in right hand and wrist. COMPARISON: 08/16/2022 TECHNIQUE: 4 views of the right hand and 4 views of the right wrist FINDINGS: The bones are diffusely demineralized. There are mildly displaced fractures in the distal radius and ulna with mild blurring of the fracture lines. Alignment appears stable. No new fractures are visualized. Extensive vascular calcifications. XR/XR hand RT min 3V IMPRESSION: 1. Stable osseous alignment in the distal radius and ulnar fractures. 2. Diffuse osteopenia. 3. Extensive vascular calcifications.
--- NOTE | ~2022-08-29 | XR_ITS ---
Examination: X-ray hand and wrist, right INDICATION: Pain in right hand and wrist. COMPARISON: 08/16/2022 TECHNIQUE: 4 views of the right hand and 4 views of the right wrist FINDINGS: The bones are diffusely demineralized. There are mildly displaced fractures in the distal radius and ulna with mild blurring of the fracture lines. Alignment appears stable. No new fractures are visualized. Extensive vascular calcifications. XR/XR wrist RT min 3V IMPRESSION: 1. Stable osseous alignment in the distal radius and ulnar fractures. 2. Diffuse osteopenia. 3. Extensive vascular calcifications.
== END 2022-08-29 15:17 | disposition home or self-care (01) ==
LOC: HO.HOSX 15:16
PROVIDERS: Visit Provider Orthopaedic Surgery
DX: S52.501A Unspecified fracture of the lower end of right radius, initial encounter for closed fracture (principal); S52.601A Unspecified fracture of lower end of right ulna, initial encounter for closed fracture
CPT/HCPCS: 73110; 73130

== ENCOUNTER 2022-09-26 12:42 | Outpatient (REF) | payer MEDICARE, SELFPAY ==
--- NOTE | ~2022-09-26 | XR_ITS ---
EXAMINATION: XR WRIST, RIGHT CLINICAL INFORMATION: Pain and wrist COMPARISON: Right wrist 08/29/2012 TECHNIQUE: PA, lateral, and oblique views of the right wrist. FINDINGS: There is diffuse osteopenia. There is healing distal radial and ulnar fractures with mild sclerosis. The fracture line is still visualized. The soft tissues have significantly improved. XR/XR wrist RT min 3V IMPRESSION: Healing distal radial and ulnar fractures. The fracture line is still visualized. There is diffuse osteopenia.
== END 2022-09-26 12:43 | disposition home or self-care (01) ==
LOC: HO.HOSX 12:42
PROVIDERS: Visit Provider Orthopaedic Surgery
DX: M25.531 Pain in right wrist (principal)
CPT/HCPCS: 73110

== ENCOUNTER 2022-09-26 15:48 | Outpatient (AMB) | payer MEDICARE, SELFPAY ==
--- NOTE | 2022-09-26 15:53 | A.OFFVIS_ITS ---
Intake Intake Visit Reasons: OV- right wrist fx Intake Note: Vargas is a 82 year old male who presents today for his follow up visit for his right Distal radius fx, DOI 07/29/22. Patient reports he is doing well, denies pain, numbness or tingling. He states facility where he is staying discontinued dressing changes. Allergies No Known Allergies [No Known Allergies*] Allergy (Unverified 09/26/22 16:10) HPI OV- right wrist fx HPI Details Vargas is an 82 year old right hand dominant Diabetic man who presents for a follow-up for his right distal radius and ulna Fxs, DOI: 07/29/22.?These underwent a closed reduction in the emergency department and have been managed non operatively. He also had a significant skin wound on the dorsum of his distal forearm and hand. He is seen today with his daughter. He now resides at [facility] He says he is doing well. His pain has improved and he denies any numbness or tingling. He says he has been applying lotion to his hands He underwent a vein bypass graft surgery on 08/30/22 at [facility], and his daughter says he has another surgery, this time for his left lower extremity, scheduled for 09/27/22 at [facility], but did not clarify what the procedure was Physical Exam Extrem Other: Evaluation of Right Upper Extremity: The patient is alert, oriented, and in no acute distress Neuro: Sensation felt to be normal to the tips of all digits. Vascular: Cap refill brisk ROM: Does not appear that he has been able to work well on moving his fingers Passively I could bring his fingertips just about to his palm Initially he could only actively bring his fingertips ~4cm from palm After working on exercises he could bring them ~2-3cm from palm He was given a squishy toy by Marie to help him work on improving his active finger flexion to a fist He resides in a retirement facility, not getting much true knowledgeable hand rehab We worked on ROM exercises today in clinic for more than 15 minutes. Good cap refill. No tenderness along the fracture site, along the distal shaft of the radius, and both his metacarpals and his fingers Radiographs: 3 views of the right wrist were taken and viewed by me today in clinic. They show a right fracture through the metaphysis of the distal radius with some intra-articular extension, as well as a fracture through the ulnar neck, with some loss of inclination, satisfactory fracture alignment, and good evidence of interval bony healing. He is still at neutral on the lateral view. He has some calcification of both radial and ulnar arteries Office Procedures Fracture Care Details: No fracture. 15 minute plus manual therapy [id number] Fracture Billing Code: Fracture Billing Code Assessment & Plan Assessment & Plan (1) Distal radius fracture, right: Code(s): S52.501A - Unspecified fracture of the lower end of right radius, initial encounter for closed fracture (2) Right distal ulnar fracture: Code(s): S52.601A - Unspecified fracture of lower end of right ulna, initial encounter for closed fracture Plan Assessment & Plan: 1. Right distal radius fracture 2. Right distal ulnar shaft fracture DOI: 07/29/22 3. Right hand stiffness I educated him about this condition His fractures are healed well enough for him not to use a wrist brace while at home, sleeping and doing sedentary activities. He will put his brace on when he enters the hospital just to make sure they know that they should be careful with the handling of his right upper extremity We worked on ROM exercises today in clinic, and I recommend he continue to work on ROM exercises at his residence in a rehab center to reduce his stiffness He will perform these exercises 20x daily. He needs to work on active and passive finger & thumb ROM, elbow flexion & extension, and gentle supination He is able to wash his hand and forearm in warm soapy water, he says he has difficulty standing and is unable to take showers. He resides in a retirement facility, and is not getting much true knowledgeable hand rehab, He is scheduled to return to [facility] on 09/27/22 for what I believe his daughter said is a LLE amputation procedure He can follow up prn. His daughter was given my card if she would like to discuss formal OT hand therapy or if there is anything else I can help him with. Please note that greater than 25 minutes was spent with this patient going over the history, evaluating the patient and radiographs, formulating possible treatment options, discussing them with the patient, and documenting the visit. We spent greater than 15 minutes working on ROM exercises in clinic Scribed for Vera Hernandez MD by Mani Valera medical support specialist, on 09/26/22 at 4:10 PM, EST. Orders: Orders XR wrist RT min 3V Today M25.531 - Pain in right wrist Coding Level of Care Code Est Pt Level 3 (97779) Diagnoses Distal radius fracture, right S52.501A Right distal ulnar fracture S52.601A CPT Codes Fracture Care - Fracture Billing Code: Fracture Billing Code ([id number])
== END 2022-09-26 16:51 | disposition home or self-care (01) ==
PROVIDERS: PCP Internal Medicine; Visit Provider Orthopaedic Surgery
DX: S52.501D Unspecified fracture of the lower end of right radius, subsequent encounter for closed fracture with routine healing (principal); S52.601D Unspecified fracture of lower end of right ulna, subsequent encounter for closed fracture with routine healing
CPT/HCPCS: 99024

== ENCOUNTER 2023-06-25 12:26 | Outpatient (RCR) | payer MEDICARE, SELFPAY | END 2023-08-08 15:42 | disposition home or self-care (01) | LOC: HO.WCC 12:26 | PROVIDERS: PCP Internal Medicine; Referring Provider Podiatrist; Visit Provider Physician Assistant | DX: Z09 Encounter for follow-up examination after completed treatment for conditions other than malignant neoplasm (principal); E11.40 Type 2 diabetes mellitus with diabetic neuropathy, unspecified; I10 Essential (primary) hypertension; Z87.891 Personal history of nicotine dependence; Z79.4 Long term (current) use of insulin; Z86.31 Personal history of diabetic foot ulcer | CPT/HCPCS: 99212 ==

== ENCOUNTER 2023-08-01 15:05 | Outpatient (AMB) | payer MEDICARE, SELFPAY ==
--- NOTE | 2023-08-01 15:08 | A.OFFVIS_ITS ---
Vital Signs 08/01/23 15:09 Height 5 ft 5 in Weight 116 lb 6.465 oz BMI 19.4 BP 126/56 L Blood Pressure Location Lt brachial Position Sitting Pulse 61 Pulse Source Pulse Oximeter Intake Visit Reasons: Type 2 DM Intake Note: New patient presents today for T2DM, Referred by PCP. Last Diabetic Eye exam: 11/2022 Last Podiatry Visit: 04/2023 Random Glucose:105 mg/dl HgA1C: 6.5% Spacecraft Systems Engineer Required: No Accompanied by: Self / Same As Patient Allergies No Known Allergies [No Known Allergies*] Allergy (Unverified 08/01/23 15:31) Medication List - Last Reconciled 08/01/23 by Juanjose Albarran MD acetaminophen 325 mg PO TID aspirin 81 mg PO DAILY atorvastatin 80 mg PO QPM bisoprolol fumarate 5 mg PO DAILY famotidine 20 mg PO BID fluticasone propion-salmeterol 500-50 mcg/dose (Wixela Inhub) 1 inh inhalation BID gabapentin 100 mg PO TID insulin aspart U-100 (Novolog FlexPen U-100 Insulin aspart) 1 sliding scale dose subcut TID PRN insulin glargine (Lantus Solostar U-100 Insulin) 12 units subcut DAILY lactulose 15 mL PO DAILY PRN multivitamin 1 tab PO DAILY sucralfate 1 g PO QID tamsulosin 0.4 mg PO DAILY tiotropium bromide 2.5 mcg/actuation 2 puffs inhalation DAILY HPI Comments Details: 83 YO M who is seen in consultation for T2DM at the request of PCP. Initially diagnosed with T2DM in 35 yrs ago . Was initially started on treatment with metformin . Current regimen Lantus 10-11 units Novolog 3-5 units . Could not download glucometer at the time of the visit Reports low sugars once a mo . Treats lows with glucotabs . [Checks] sugar after to ensure it is rising. Rechecks 1 1/2 hrs after corrects Most recent A1C [], [down] from prior [] on []. Family history of T2DM in mother . Has eyes checked yearly, last eye exam 11/2022 , denies retinopathy. Denies neuropathy, sees podiatry. Denies nephropathy, Not on REESE/ARB. Has HLD, on statin. Denies CAD. Has PVD [Had] diabetes education. [facility] Medical History (Updated 08/01/23 @ 15:17 by Juanjose Albarran MD) Uncontrolled diabetes mellitus with hyperglycemia Surgical History (Updated 08/01/23 @ 15:23 by NATTY Turner) H/O right wrist surgery Family History (Updated 08/01/23 @ 15:24 by NATTY Turner) Mother Heart disease Father Heart disease Social History Alcohol intake: current Alcohol intake frequency: other Patient Tobacco Use Status: Former Tobacco user Physical Exam Vital Signs: Last Vital Signs Pulse 61 08/01/23 15:09 BP 126/56 L 08/01/23 15:09 BMI result Body Mass Index 19.4 Absence of Cushingoid features. Absence of acromegalic features. Neck exam reveals nl size thyroid about 15 gms. No thyroid nodules palpable. L carotid bruits present. Lungs CTA. Heart S1 S2, Reg R/R. No M/R/ G. Skin exam reveals absence of vitiligo or acanthosis nigricans. Abdominal exam reveals Soft NT/ND with NA BS. No organomegaly present. Neck Other: . Extrem Other: Visual exam of foot performed. L first toe amputation No ulcerations or open lesions. No onchomycosis, no callouses.Pulses 2 + distally Sensation intact to monofilament exam. Vibratory sensation sensed is intact with 128 Hz tuning fork. 2+ edema in ankles Results AMB Hemoglobin A1c AMB Hemoglobin A1c 6.5 % Last Edit by NATTY Turner on 08/01/23 15:41 Results Reviewed Results Reviewed: Laboratory Last Values Glucose (Clinic) 105 mg/dL (60-115) 08/01/23 15:26 Assessment & Plan Assessment & Plan (1) Uncontrolled diabetes mellitus with hyperglycemia: Code(s): E11.65 - Type 2 diabetes mellitus with hyperglycemia Category: Medical Plan: This 83-year-old white male with a history of diabetes being treated with basal-bolus insulin with excellent glycemic control and known macrovascular complications namely peripheral vascular disease Plan is to continue the current regimen. I did tell the patient to follow up with vascular surgery regarding his possible left carotid bruit. He expressed somewhat of an interest in a continuous glucose sensor will meet with the medicare nurse to discuss this. I will also set up a nutritional appointment. He is due to get his blood work done by his primary care provider should his lipids and microalbumin to creatinine ratio Orders: Orders AMB Hemoglobin A1c Today Stephie Holman MD E11.65 - Type 2 diabetes mellitus with hyperglycemia, Z13.9 - Encounter for screening, unspecified Referrals Diabetes Education Referral Juanjose Albarran MD E11.65 - Type 2 diabetes mellitus with hyperglycemia Nutrition/Dietitian Referral Juanjose Albarran MD E11.65 - Type 2 diabetes mellitus with hyperglycemia Coding Level of Care Code New Pt Level 5 (54953) Diagnoses Uncontrolled diabetes mellitus with hyperglycemia E11.65
[2023-08-01 15:09] VITALS: BP 126/56; PULSE 61; BMI 19.4
[2023-08-01 15:33] LABS: Glucose, Whole Blood 105 mg/dL (60-115)
== END 2023-08-01 16:00 | disposition home or self-care (01) ==
PROVIDERS: PCP Internal Medicine; Visit Provider Internal Medicine
DX: E11.65 Type 2 diabetes mellitus with hyperglycemia (principal)
CPT/HCPCS: 99204

== ENCOUNTER → 2023-08-01 15:05 | Outpatient (BNVA) | payer MEDICARE, SELFPAY | PROVIDERS: PCP Internal Medicine; Visit Provider Internal Medicine | DX: E11.65 Type 2 diabetes mellitus with hyperglycemia (principal) | CPT/HCPCS: 82947; 83036; 99202 ==

== ENCOUNTER 2023-08-14 13:06 | Outpatient (AMB) | payer MEDICARE, SELFPAY ==
[2023-08-14 13:20] VITALS: BMI 19.9
--- NOTE | 2023-08-14 13:20 | A.OFFVIS_ITS ---
VS Expanded 08/14/23 13:20 Height 5 ft 5 in Weight 119 lb 7.849 oz BMI 19.9 Intake Visit Reasons: T2DM w hyperglycemia/CONFIRMED Allergies No Known Allergies [No Known Allergies*] Allergy (Unverified 08/01/23 15:31) Nutrition Presentation Details: Pt presents for MNT for T2DM. Pt was referred by Dr. Martin Pt reports typically having 3-5 small meals/day, needs education on dm meal planning Snack on crackers and peanut butter or sugar free pudding B:decaf coffee with oatmilk , cheerios, oatmilk, 4 oz activia and 1 egg lunch: glucerna shake 6 club crackers with peanut butter, mandarin orange snack diet doctor pepper dinner: fish or turkey dinner or golumpki , green beans, decaf coffee physical activities: daily life activities etoh: denies BS Monitoring Most Recent Diabetes Results: Creatinine 0.66 mg/dL (0.5-1.4) 07/29/22 Blood Urea Nitrogen 16 mg/dL (9-16) 07/29/22 Sodium 130 mmol/L (135-145) L 07/29/22 Potassium 4.4 mmol/L (3.3-5.1) 07/29/22 Chloride 93 mmol/L (96-108) L 07/29/22 Carbon Dioxide 29 mmol/L (22-29) 07/29/22 Calcium 9.3 mg/dL (8.4-10.2) 07/29/22 AST 26 U/L (5-37) 07/29/22 ALT 21 U/L (0-40) 07/29/22 Total Protein 5.9 g/dL (6.5-8.0) L 07/29/22 Albumin 3.5 g/dL (3.5-5.0) 07/29/22 HYT-Yzddjzc-Xl.Jeor Equation Height: 5 ft 5 in Weight: 119 lb Resting Metabolic Rate: 1177.59 Calculated Activity Level: Moderate Activity Calories Needed to Maintain Weight: 1825.26 Diagnosis Nutrition problem #1: food nutri know defi As related to (etiology) #1: diagnosis As evidenced by (sign/symptom) #1: knowledge deficit of diet [facility] Medical History (Updated 08/01/23 @ 15:17 by Juanjose Albarran MD) Uncontrolled diabetes mellitus with hyperglycemia Surgical History (Updated 08/01/23 @ 15:23 by NATTY Turner) H/O right wrist surgery Family History (Updated 08/01/23 @ 15:24 by NATTY Turner) Mother Heart disease Father Heart disease Social History (Updated 08/01/23 @ 15:25 by NATTY Turner) Alcohol intake: current Alcohol intake frequency: other Patient Tobacco Use Status: Former Tobacco user Assessment & Plan Assessment & Plan (1) Uncontrolled diabetes mellitus with hyperglycemia: Code(s): E11.65 - Type 2 diabetes mellitus with hyperglycemia Category: Medical Plan: Wt: 54 Kg ( ) Est kcal needs as per MSJ: 1800 + 500 (40% carb, 30% pr otein/fat) Est fluid needs as per 25-30 ml/d: 1600 Est prot per day as per 1 g/kg bw: 54 Recommend fiber intake : 8-10 g per day and gradually increase to 25-28 g per day for women and 35-38 g for men or as tolerated Recommend sodium intake per day : less than 1500 mg less than 2000 mg Educated patient on: ( R = reviewed V = verbalizes understanding N/R = needs review N/A = not applicable * Food sources of carbohydrate, adequate serving sizes and its role in various health conditions: R * Differences between complex carbohydrates a simple carbohydrates, role of fiber in diet: R * Lean protein sources of foods: R V NR * Differences between types of fats and role in diet (mono on saturated fat fatty acids, saturated fatty acids, trans fats): R V N/R * Food sources of sodium in salt and healthy modifications for heart health in kidney health: R V R/V * Vitamins and minerals: R V N/R * Healthy plate method concept: R * Physical activity: Benefits a precaution: R V N/R * Hypoglycemia protocol (rule of 15): R * Dietary prevention of Hyperglycemia: R Patient Instructions: Follow healthy plate method have a cup of milk with meals in place of juice Include a bedtime snack 4 crackers with peanut utt and cup of milk or 1/2 sand and cup o milk - see list of snack ideas Coding Level of Care Code Nutr Indiv Intake (43652) Diagnoses Uncontrolled diabetes mellitus with hyperglycemia E11.65 Time Spent (min) 30
[2023-08-20 14:29] VITALS: BMI 19.8
== END 2023-08-14 13:41 | disposition home or self-care (01) ==
PROVIDERS: PCP Internal Medicine; Visit Provider Dietitian, Registered
DX: E11.65 Type 2 diabetes mellitus with hyperglycemia (principal)

== ENCOUNTER → 2023-08-14 13:06 | Outpatient (BNVA) | payer MEDICARE, SELFPAY | PROVIDERS: PCP Internal Medicine; Visit Provider Dietitian, Registered | DX: E11.65 Type 2 diabetes mellitus with hyperglycemia (principal); Z71.3 Dietary counseling and surveillance | CPT/HCPCS: 97802 ==

== ENCOUNTER 2023-08-21 14:02 | Outpatient (AMB) | payer MEDICARE, SELFPAY ==
--- NOTE | 2023-08-21 14:50 | A.OFFVIS_ITS ---
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 Accompanied by: Self / Same As Patient Allergies No Known Allergies [No Known Allergies*] Allergy (Unverified 08/01/23 15:31) [facility] Comprehensive Diabetes Asmnt Most Recent Diabetes Results: Creatinine 0.66 mg/dL (0.5-1.4) 07/29/22 Blood Urea Nitrogen 16 mg/dL (9-16) 07/29/22 Sodium 130 mmol/L (135-145) L 07/29/22 Potassium 4.4 mmol/L (3.3-5.1) 07/29/22 Chloride 93 mmol/L (96-108) L 07/29/22 Carbon Dioxide 29 mmol/L (22-29) 07/29/22 Calcium 9.3 mg/dL (8.4-10.2) 07/29/22 AST 26 U/L (5-37) 07/29/22 ALT 21 U/L (0-40) 07/29/22 Total Protein 5.9 g/dL (6.5-8.0) L 07/29/22 Albumin 3.5 g/dL (3.5-5.0) 07/29/22 [facility] Medical History (Updated 08/01/23 @ 15:17 by Juanjose Albarran MD) Uncontrolled diabetes mellitus with hyperglycemia Surgical History (Updated 08/01/23 @ 15:23 by NATTY Turner) H/O right wrist surgery Family History (Updated 08/01/23 @ 15:24 by NATTY Turner) Mother Heart disease Father Heart disease Social History (Updated 08/01/23 @ 15:25 by NATTY Turner) Alcohol intake: current Alcohol intake frequency: other Patient Tobacco Use Status: Former Tobacco user Assessment & Plan Assessment & Plan (1) Uncontrolled diabetes mellitus with hyperglycemia: Code(s): E11.65 - Type 2 diabetes mellitus with hyperglycemia Plan: Patient at visit to set up an insert Deanna 3 sample sensor Instructed patient sensors water proof you can shower, or swim do not submerge sensor in water for over 30 minutes Is sensor falls off cannot put back in you need to replace sensor, customer service number given to patient for sensor replacement Sensor placed on the back of left arm Patient left visit with sensor in warmup Reviewed how to interpret trend arrows Reminded patient that to check finger sticks if symptoms do not match sensor reading. Discussed lag time between finger stick and sensor data.? Instructed patient she should always keep blood glucometer for backup testing if needed Reviewed delay of CGM from fingersticks Reminded pt that if symptoms do not match sensor still needs to check fingersticks. Will send message to provider to send prescriptions for Deanna 3 sensor in reader Portions of this note were created using voice recognition software, please excuse any words or phrases that may have been misinterpreted. Patient Instructions: Patient instruction: CGM provides information on blood glucose control throughout the day, including hyperglycemia and hypoglycemia. ? Continue to monitor blood glucose as instructed. Follow nutrition guidelines provided. Report any discomfort promptly to health care provider. ?Stay well-hydrated. You can bathe ,shower, swim and exercise while wearing the glucose sensor. Do not submerge glucose sensor in water for more than 30 minutes. Coding Level of Care Code Est Pt Level 1 (37256) Diagnoses Uncontrolled diabetes mellitus with hyperglycemia E11.65
== END 2023-08-21 14:59 | disposition home or self-care (01) ==
PROVIDERS: PCP Internal Medicine; Visit Provider Registered Nurse Diabetes Educator
DX: E11.65 Type 2 diabetes mellitus with hyperglycemia (principal)

== ENCOUNTER → 2023-08-21 14:02 | Outpatient (BNVA) | payer MEDICARE, SELFPAY | PROVIDERS: PCP Internal Medicine; Visit Provider Registered Nurse Diabetes Educator | DX: E11.65 Type 2 diabetes mellitus with hyperglycemia (principal) | CPT/HCPCS: 99211 ==